=== PATIENT | female | born 1995 | race Caucasian/White ===

== ENCOUNTER 2017-12-11 14:27 | Emergency (ER) | payer BC, SELFPAY ==
[2017-12-11 14:29] VITALS: BP 149/78; PULSE 99; RESP 16; TEMP 36.4; O2SAT 96; BMI 50.7
--- NOTE | 2017-12-11 14:45 | NURSING ---
EAGLE, HEATHER, CALLED. SHE IS COMING TO SEE PATIENT
--- NOTE | 2017-12-11 15:32 | ED.DCSUM_ITS ---
- ER Visit Summary Date of Service: 12/11/17 Chief Complaint: [Depression and suicidal ideation] History of Present Illness: The patient is a 22 F [presents to the emergency department with increasing thoughts of self-harm for the last 3 weeks. Patient states that she moved back from [place] in early October and things have not been going well for her here. Patient states that while in [place] she walked in on her roommate cutting herself and she thinks that may have triggered this increased depression. Patient has thoughts of wanting to overdose or cut her wrists. She is also had thoughts of walking into traffic. Denies any homicidal thoughts. Patient denies hallucinations. She is currently not being medicated. Patient deals that she would benefit from inpatient treatment.] Physical Examination: [HEENT-PERRLA, EOMI. Cranial nerves II through XII grossly intact. TMs clear. Mucous membranes moist. No adenopathy. Cardiovascular-regular rate and rhythm without murmur or ectopy Lungs-clear to auscultation, chest wall stable without crepitus or subcu emphysema Abdomen-normoactive bowel sounds, soft, nontender, no rebound or rigidity, no peritoneal signs. Extremities-intact ?4, normal range of motion, normal pulses, atraumatic] Test Results: [CBC with differential showed a white count of 12.0, hemoglobin 15 , hematocrit 45, platelets 394. Chemistries were normal. HCG was negative. Tox screen was negative. Alcohol was negative.] Emergency Department Course and Treatment: [] Treatment Plan: [Patient will be transferred to psychiatric facility for further evaluation and treatment] Disposition: [Transfer] Impression: [Suicidal ideation Depression] This note was generated with [employer] dictation software. It may contain incorrect words, spelling, and punctuation that were not noted in review of the chart prior to signing ED Disposition - Plan for ED Patient: Chief Complaint: Suicidal Referrals: Samreen Eid DO [Primary Care Provider] -
[2017-12-11 15:33] LABS: Absolute Lymphocyte Count 3.96 X10^3/ul (0.83-4.51); Absolute Neutrophil Count 6.7 X10^3/uL (2.0-7.7); Basophil# 0.01 X10^3/uL; Basophil% 0.1 % (0-1); Eosinophil# 0.37 X10^3/uL; Eosinophils% 3.1 % (0-5); Hematocrit 45.2 % (37-47); Lymphocyte # 3.96 X10^3/ul (4.0); Mean Corp Hgb Conc 33.2 g/gl (32-36); Mean Corpuscular Hgb 28.6 pg (27.0-32.0); Mean Corpuscular Volume 86.3 fL (81-99); Mean Platelet Vol. 9.5 fl (6.2-12.0); Monocyte# 0.93 X10^3/uL; Monocyte% 7.8 % (0-10); Neutrophil # 6.69 X10^3/uL (2.7-7.7); Neutrophil % 55.7 % (47-70); Platelet Count 394 K/mm3 (150-450); RBC Distribution Width CV 12.6 % (11.6-14.6); RBC Distribution Width SD 39.7 fl (35.1-43.9); Red Blood Count 5.24 M/mm3 (4.2-5.4)
[2017-12-11 15:34] LABS: POSITIVE COUNT NO; POSITIVE DIFFERENTIAL NO; POSITIVE MORPHOLOGY NO
[2017-12-11 15:52] LABS: Anion Gap 8 (5-15); BUN 9 mg/dL (7-18); BUN/Creat Ratio 16.8 RATIO (10-20); Chloride 104 mmol/L (98-107); Creatinine, Serum 0.54 mg/dL (0.55-1.02); EST Glomerular Filtration Rate 154 mL/min (>60); Est Glom Filt Rate - Afr Amer 187 mL/min (>60); Estimated Creatinine Clearance 149.54 ml/min; Glucose 91 mg/dL (74-106); Potassium 3.9 mmol/L (3.5-5.1); Sodium Level 139 mmol/L (136-145)
[2017-12-11 15:56] LABS: Pregnancy, Serum, hCG Quali. NEGATIVE Negative (0-9 Nonpreg)
--- NOTE | 2017-12-11 16:08 | NURSING ---
1530 EAGLE, CRISIS, HERE
[2017-12-11 16:12] LABS: Amphetamine Urine VISTA NEGATIVE (<1000 ng/mL); Barbiturate Urine VISTA NEGATIVE (< 200 ng/mL); Benzodiazepine Urine VISTA NEGATIVE (< 200 ng/mL); Cocaine Urine VISTA NEGATIVE (< 300 ng/mL); Ecstacy Urine VISTA NEGATIVE (< 500 ng/mL); Methadone Urine VISTA NEGATIVE (< 300 ng/mL); PCP Urine VISTA NEGATIVE (< 25 ng/mL); THC Urine VISTA NEGATIVE (< 50 ng/mL); Vista UDS pH Range 5
[2017-12-11 17:09] VITALS: BP 129/77; PULSE 81; RESP 16; O2SAT 98
--- NOTE | 2017-12-11 17:17 | NURSING ---
WAITING TO HEAR BACK FROM [facility] ON PLACEMENT.
[2017-12-11 18:49] VITALS: PULSE 89; RESP 16; O2SAT 99
[2017-12-11 20:06] VITALS: BP 127/80; PULSE 78; RESP 16; O2SAT 99
--- NOTE | 2017-12-11 20:45 | NURSING ---
[facility] CALLED AND SAID PATIENT IS ACCEPTED JUST WAITING FOR DOCTORS ORDERS AND BED ASSIGNMENT
--- NOTE | 2017-12-11 21:16 | NURSING ---
PATIENT ACCEPTED BY DOCTOR TAMAYO AT [facility]
--- NOTE | 2017-12-11 21:22 | NURSING ---
CALLED [facility]NA[facility] DUE TO INSURANCE [employer] MORNING [facility] UNAVAILABLE
--- NOTE | 2017-12-11 21:33 | NURSING ---
SREEDHAR LOZADA SENDING [facility]
[2017-12-11 21:59] VITALS: BP 139/87; BP 146/80; PULSE 85; PULSE 87; RESP 18; TEMP 36.3; O2SAT 98; O2SAT 99
--- NOTE | 2017-12-11 22:00 | NURSING ---
gave report to [facility] the nurses name was angelia going to the [facility] unit. [facility] taking the pt. pt understands that she is being transferred and why. also called mom and let her know when she left the facility.
== END 2017-12-11 22:06 ==
PROVIDERS: Emergency Provider Emergency Medicine; Family Provider Family Medicine; PCP Family Medicine
DX: R45.851 Suicidal ideations (principal); F32.9 Major depressive disorder, single episode, unspecified; F41.9 Anxiety disorder, unspecified; Z86.59 Personal history of other mental and behavioral disorders; Z90.49 Acquired absence of other specified parts of digestive tract; F12.90 Cannabis use, unspecified, uncomplicated; Z72.0 Tobacco use
CPT/HCPCS: 36415; 80048; 80307; 80320; 84703; 85025; 99284; G0480

== ENCOUNTER → 2018-02-11 11:24 | Outpatient (CLI) | payer BC, SELFPAY ==
[2018-01-23 17:36] LABS: Chlamydia Trachomatis by PCR Negative (Negative); Neisserai gonorrhoeae by PCR Negative (Negative); Probe Check PASS; Sample Adequacy Control PASS; Specimen Processing Control PASS
[2018-01-24 02:34] LABS: Rapid Plasmin Reagin (RPR) NONREACTIVE (NONREACTIVE)
[2018-01-24 13:26] LABS: HIV - WCH Non-Reactive (Nonreactive)
[2018-02-11 11:31] LABS: Mucous, Urine 0 SEEN /hpf (<or=2+); Red Blood Cells-Urine 0 SEEN /hpf (0-5); White Blood Cells 0 SEEN /hpf (0-5)
[2018-02-11 15:33] LABS: Absolute Lymphocyte Count 3.29 X10^3/ul (0.83-4.51); Absolute Neutrophil Count 6.4 X10^3/uL (2.0-7.7); Basophil# 0.02 X10^3/uL; Basophil% 0.2 % (0-1); Eosinophil# 0.15 X10^3/uL; Eosinophils% 1.4 % (0-5); Hemoglobin 14.8 g/dl (12.0-15.0); Lymphocyte # 3.29 X10^3/ul (4.0); Lymphocyte % 30.6 % (19-41); Mean Corp Hgb Conc 32.9 g/gl (32-36); Mean Corpuscular Hgb 28.6 pg (27.0-32.0); Mean Corpuscular Volume 86.9 fL (81-99); Mean Platelet Vol. 10.5 fl (6.2-12.0); Monocyte# 0.88 X10^3/uL; Monocyte% 8.2 % (0-10); Neutrophil # 6.38 X10^3/uL (2.7-7.7); Neutrophil % 59.4 % (47-70); Platelet Count 442 K/mm3 (150-450); RBC Distribution Width CV 12.9 % (11.6-14.6); Red Blood Count 5.18 M/mm3 (4.2-5.4); White Blood Count 10.7 K/mm3 (4.4-11.0)
[2018-02-11 15:52] LABS: POSITIVE COUNT NO; POSITIVE DIFFERENTIAL NO; POSITIVE MORPHOLOGY NO; hCG Titer Quant., Serum < 1 mIU/mL (<9 non-preg)
[2018-02-11 15:58] LABS: ALB/GLOB Ratio 0.8 RATIO (0.9-2.4); AST(SGOT) 22 U/L (15-37); Alanine Aminotransfer ALT/SGPT 38 U/L (13-56); Albumin, Serum 3.5 g/dL (3.2-5.0); Alkaline Phosphatase 66 U/L (45-117); Anion Gap 9 (5-15); BUN 8 mg/dL (7-18); BUN/Creat Ratio 11.4 RATIO (10-20); Calcium,Total 8.9 mg/dL (8.5-10.1); Chloride 108 mmol/L (98-107); Cholesterol 246 mg/dL (200); EST Glomerular Filtration Rate 113 mL/min (>60); Est Glom Filt Rate - Afr Amer 136 mL/min (>60); Globulin 4.4 g/dL (2.2-4.2); Glucose 77 mg/dL (74-106); High Density Lipoprotein 39 mg/dL; Potassium 3.9 mmol/L (3.5-5.1); Protein, Total 7.9 g/dL (6.4-8.2); Sodium Level 141 mmol/L (136-145); Triglycerides 137 mg/dL; Very Low Density Lipoprotein 27 mg/dL (5-40)
[2018-02-11 16:18] LABS: Color, Urine Yellow (Yellow); Glucose, Dipstick Normal (Normal); Ketone-Dipstick Negative (Negative); Leukocyte Esterase-Dipstick Negative /ul (Negative); Nitrite-Dipstick Negative (Negative); Occult Blood-Urine Negative /ul (Negative); Protein-Dipstick Negative (Negative); Urine Bilirubin Dipstick Negative (Negative); Urine Clarity Sl. Cloudy (Clear); Urine Urobilinogen Normal (Normal)
[2018-02-11 16:23] LABS: Erythrocyte Sedimentation Rate 37 mm/hr (0-20)
[2018-02-11 16:46] LABS: Bacteria 1+ /hpf (None Seen); Squamous Epithelial Cells - UA 10-25 SEEN /hpf (5-10)
[2018-02-11 17:08] LABS: Chlamydia Trachomatis by PCR Negative (Negative); Neisserai gonorrhoeae by PCR Negative (Negative); Probe Check PASS; Sample Adequacy Control PASS; Specimen Processing Control PASS
[2018-02-12 10:27] LABS: HIV - WCH Non-Reactive (Nonreactive)
== END ==
LOC: BFHLAB 11:26
PROVIDERS: Family Medicine; Family Provider Family Medicine; PCP Family Medicine; Visit Provider Family Medicine
DX: R11.2 Nausea with vomiting, unspecified (principal); R10.9 Unspecified abdominal pain; R19.7 Diarrhea, unspecified; E28.2 Polycystic ovarian syndrome; E66.9 Obesity, unspecified; Z20.9 Contact with and (suspected) exposure to unspecified communicable disease
CPT/HCPCS: 36415; 80053; 80061; 81001; 84702; 85025; 85652; 86140; 86592; 86703; 87086; 87088; 87491; 87591

== ENCOUNTER 2018-05-10 16:26 | Emergency (ER) | payer BC, SELFPAY ==
[2018-05-10 16:26] VITALS: BP 160/117; PULSE 112; RESP 16; TEMP 36.8; O2SAT 97; BMI 52.8
--- NOTE | 2018-05-10 16:39 | ED.DCSUM_ITS ---
- ER Visit Summary Date of Service: 05/10/18 Chief Complaint: I am depressed History of Present Illness: The patient is a 22 F who states that she has been depressed since yesterday. Unclear as to why it has been worsening. She states she had bad dreams last night. She cut herself on the right distal thigh today with a razor blade. She states she has no significant history of cutting. She went [facility] in November because of her depression. No recent changes in her medications. She states she has had some passive suicidal thoughts as well Physical Examination: Vital signs reviewed. HEENT exam unremarkable. Heart is regular rate and rhythm without murmurs. Lungs are clear to auscultation. Abdomen is soft and nontender. Extremities reveal no edema. Skin exam shows superficial abrasions to the right distal thigh. Neurologic exam normal. Patient is depressed and does have some suicidal thoughts. She does have a flat affect Test Results: Screening labs negative except for leukocytosis of 14,000. Tox screen does have methamphetamines. Emergency Department Course and Treatment: She was evaluated by crisis. She already has an appointment set up next week. She will keep this appointment. I feel safe discharging her home Treatment Plan: [] Disposition: Discharge Impression: Depression This note was generated with [employer] dictation software. It may contain incorrect words, spelling, and punctuation that were not noted in review of the chart prior to signing ED Disposition - Plan for ED Patient: Chief Complaint: Depression Referrals: Samreen Eid DO [Primary Care Provider] -
[2018-05-10 17:05] LABS: Amphetamine Urine VISTA NEGATIVE (<1000 ng/mL); Barbiturate Urine VISTA NEGATIVE (< 200 ng/mL); Benzodiazepine Urine VISTA NEGATIVE (< 200 ng/mL); Cocaine Urine VISTA NEGATIVE (< 300 ng/mL); Ecstacy Urine VISTA POSITIVE (< 500 ng/mL); Methadone Urine VISTA NEGATIVE (< 300 ng/mL); PCP Urine VISTA NEGATIVE (< 25 ng/mL); THC Urine VISTA NEGATIVE (< 50 ng/mL); Vista UDS pH Range 5
[2018-05-10 17:14] LABS: Absolute Neutrophil Count 9.2 X10^3/uL (2.0-7.7); Basophil# 0.02 X10^3/uL; Basophil% 0.1 % (0-1); Eosinophil# 0.37 X10^3/uL; Eosinophils% 2.6 % (0-5); Hematocrit 44.5 % (37-47); Hemoglobin 14.9 g/dl (12.0-15.0); Lymphocyte % 23.6 % (19-41); Mean Corp Hgb Conc 33.5 g/gl (32-36); Mean Corpuscular Hgb 28.5 pg (27.0-32.0); Mean Corpuscular Volume 85.1 fL (81-99); Monocyte# 1.05 X10^3/uL; Monocyte% 7.5 % (0-10); Platelet Count 404 K/mm3 (150-450); RBC Distribution Width CV 12.8 % (11.6-14.6); RBC Distribution Width SD 39.4 fl (35.1-43.9); Red Blood Count 5.23 M/mm3 (4.2-5.4)
[2018-05-10 17:15] LABS: POSITIVE COUNT NO; POSITIVE DIFFERENTIAL NO; POSITIVE MORPHOLOGY NO
[2018-05-10 17:25] LABS: Anion Gap 9 (5-15); BUN 6 mg/dL (7-18); BUN/Creat Ratio 7.8 RATIO (10-20); Calcium,Total 8.5 mg/dL (8.5-10.1); Chloride 109 mmol/L (98-107); Creatinine, Serum 0.77 mg/dL (0.55-1.02); EST Glomerular Filtration Rate 102 mL/min (>60); Est Glom Filt Rate - Afr Amer 123 mL/min (>60); Estimated Creatinine Clearance 104.87 ml/min; Glucose 106 mg/dL (74-106); Potassium 3.5 mmol/L (3.5-5.1); Sodium Level 139 mmol/L (136-145)
[2018-05-10 17:31] LABS: Pregnancy, Serum, hCG Quali. NEGATIVE Negative (0-9 Nonpreg)
[2018-05-10 17:35] VITALS: RESP 18; O2SAT 98
--- NOTE | 2018-05-10 17:39 | ED.RN ---
per pt she lost her job saturday and it was difficulty on her body working the way she did, financial stressors acknowledged. She states she has dreams of getting raped andkilling 2 people. walks up and very anxious and depressed.
[2018-05-10 18:38] VITALS: RESP 18; O2SAT 98
[2018-05-10 19:06] VITALS: PULSE 87; RESP 16; O2SAT 97
[2018-05-10 20:38] VITALS: PULSE 82; RESP 18; O2SAT 97
--- NOTE | 2018-05-10 21:06 | ED.DEP ---
ED Disposition - Plan for ED Patient: Disposition: Home or Assisted Living Chief Complaint: Depression Instructions: ED Depression Referrals: Samreen Eid DO [Primary Care Provider] -
[2018-05-10 21:30] VITALS: BP 134/74; PULSE 87; RESP 18; O2SAT 98
--- NOTE | 2018-05-10 21:32 | NURSING ---
PT AWARE OF NEED TO FOLLOW UP WITH COUNSELOR ON SATURDAY
== END 2018-05-10 21:38 | disposition home or self-care (01) ==
PROVIDERS: Emergency Provider Emergency Medicine; Family Provider Family Medicine; PCP Family Medicine
DX: F32.9 Major depressive disorder, single episode, unspecified (principal); S70.311A Abrasion, right thigh, initial encounter; X78.8XXA Intentional self-harm by other sharp object, initial encounter; Y93.9 Activity, unspecified; Y92.9 Unspecified place or not applicable; Z79.899 Other long term (current) drug therapy; Z72.0 Tobacco use
CPT/HCPCS: 80048; 80307; 80320; 84703; 85025; 99283; A4216; G0480

== ENCOUNTER 2018-05-13 20:04 | Emergency (ER) | payer BC, SELFPAY ==
[2018-05-13 20:04] VITALS: BP 140/79; PULSE 98; RESP 14; TEMP 36.2; O2SAT 97; BMI 52.4
[2018-05-13] MEDS: LORazepam 1 MG Tablet PO (20:53)
--- NOTE | 2018-05-13 21:26 | ED.VISSUMM ---
- ER Visit Summary Date of Service: 05/13/18 Chief Complaint: Anxiety History of Present Illness: The patient is a 22 F who presents with anxiety. She became upset about 2 hours ago. She complains of shaking crying feeling short of breath and she vomited. Took her Vistaril but continued to feel severely anxious. Physical Examination: Afebrile vitals are unremarkable Patient appears very anxious tearful crying and tremulous Heart regular rate and rhythm Lungs clear Abdomen soft nontender Test Results: Not indicated Emergency Department Course and Treatment: Patient was given oral Ativan. On reevaluation she is resting comfortably with no complaints her symptoms have resolved. I do believe this is related to anxiety and a panic attack. She was advised to follow-up with her mental health care providers. Treatment Plan: [] Disposition: Discharge Impression: Panic attack This note was generated with H[employer] dictation software. It may contain incorrect words, spelling, and punctuation that were not noted in review of the chart prior to signing ED Disposition - Plan for ED Patient: Chief Complaint: Anxiety Referrals: Samreen Eid DO [Primary Care Provider] -
--- NOTE | 2018-05-13 21:27 | ED.DEP ---
ED Disposition - Plan for ED Patient: Chief Complaint: Anxiety Instructions: ED Panic Attack Referrals: Samreen Eid DO [Primary Care Provider] -
== END 2018-05-13 21:36 | disposition home or self-care (01) ==
PROVIDERS: Emergency Provider Emergency Medicine; Family Provider Family Medicine; PCP Family Medicine
DX: F41.0 Panic disorder [episodic paroxysmal anxiety] (principal); E28.2 Polycystic ovarian syndrome; F41.9 Anxiety disorder, unspecified; F31.9 Bipolar disorder, unspecified; F43.10 Post-traumatic stress disorder, unspecified; Z90.49 Acquired absence of other specified parts of digestive tract; Z79.899 Other long term (current) drug therapy; Z72.0 Tobacco use
CPT/HCPCS: 99283

== ENCOUNTER 2018-05-18 15:15 | Emergency (ER) | payer BC, SELFPAY ==
[2018-05-18 15:16] VITALS: BP 127/78; PULSE 97; RESP 18; TEMP 36.1; O2SAT 98; BMI 52.4
--- NOTE | 2018-05-18 15:36 | ED.VISSUMM ---
- ER Visit Summary Date of Service: 05/18/18 Chief Complaint: [] Situational stress anxiety History of Present Illness: The patient is a 22 F [] history of depression situational stress and anxiety, she is not suicidal or homicidal, she has a long history of exacerbation of anxiety she is on multiple medications and follow the counseling center she has an appointment to be seen there in the next day or 2. She indicates she had argued with her brother today that intensified to the point where she became very anxious to begin itching her whole body she could not control her symptoms Indicates she has been taking all of her medications does report she smokes marijuana intermittently as it helps her anxiety she last smoked Saturday denies other illicit drug use and again denies suicidal homicidal ideation or any other complaints other than itching as she assures me the symptoms she is currently having are consistent with her chronic underlying anxiety and she has had the multiple times in the past identically She indicates when she gets this bad she is treated with Ativan through the ED Physical Examination: [] Is resting comfortably bed she is itching her skin she has some small little papular lesions that she states are chronic and that she prefers to image there is no signs of petechia purpura skin breakdown otherwise she is awake and alert no psychomotor agitation or hallucinations head neck unremarkable the abdomen is soft but obese nontender the lungs are clear upper lower extremity unremarkable she is awake moving all 4 extremities she drove to the emergency department Test Results: [] Emergency Department Course and Treatment: [] Had a long conversation the patient she is scheduling her counselors in the next few days I explained we cannot continue to provide her as needed Ativan when she has these exacerbations, we will provide her 1 mg Ativan by prescription to use at bedtime and have explained further therapy for her anxiety must be obtained by her counselors and long-standing physicians and not the emergency department she agrees Treatment Plan: [] Disposition: [] Home stable Impression: [] Exacerbation of anxiety disorder This note was generated with [employer] dictation software. It may contain incorrect words, spelling, and punctuation that were not noted in review of the chart prior to signing ED Disposition - Plan for ED Patient: Chief Complaint: Anxiety Referrals: Samreen Eid DO [Primary Care Provider] -
--- NOTE | 2018-05-18 15:43 | ED.DEP ---
ED Disposition - Plan for ED Patient: Chief Complaint: Anxiety Instructions: ED Panic Attack Prescriptions: Lorazepam [Ativan] 1 mg PO QHS #1 tab Referrals: Samreen Eid DO [Primary Care Provider] -
[2018-05-18 16:18] VITALS: RESP 16
== END 2018-05-18 16:20 | disposition home or self-care (01) ==
LOC: ED 15:49
PROVIDERS: Emergency Provider Emergency Medicine; Family Provider Family Medicine; PCP Family Medicine
DX: F41.9 Anxiety disorder, unspecified (principal); R23.8 Other skin changes; F32.9 Major depressive disorder, single episode, unspecified; F12.90 Cannabis use, unspecified, uncomplicated; Z79.899 Other long term (current) drug therapy
CPT/HCPCS: 99282

== ENCOUNTER → 2018-07-01 11:45 | Outpatient (CLI) | payer BC, SELFPAY ==
[2018-07-01 13:56] LABS: Internal QC Validated? YES +Cl - CLEAR BKGD
[2018-07-01 13:59] LABS: Pregnancy, Urine Negative Negative
== END ==
LOC: MTLAB 11:47
PROVIDERS: Family Provider Family Medicine; PCP Family Medicine; Visit Provider Registered Nurse
DX: R53.83 Other fatigue (principal); Z79.899 Other long term (current) drug therapy
CPT/HCPCS: 81025

== ENCOUNTER → 2018-07-21 08:44 | Outpatient (CLI) | payer BC, SELFPAY ==
[2018-07-21 12:17] LABS: Pregnancy, Serum, hCG Quali. NEGATIVE Negative (0-9 Nonpreg)
== END ==
PROVIDERS: Visit Provider Family Medicine
DX: R11.2 Nausea with vomiting, unspecified (principal)
CPT/HCPCS: 36415; 84703

== ENCOUNTER → 2019-01-30 10:31 | Outpatient (CLI) | payer MEDICAID, SELFPAY ==
[2019-01-30 12:09] LABS: Absolute Lymphocyte Count 3.31 X10^3/ul (0.83-4.51); Basophil# 0.03 X10^3/uL; Basophil% 0.2 % (0-1); Eosinophil# 0.27 X10^3/uL; Eosinophils% 2.1 % (0-5); Hematocrit 45.5 % (37-47); Hemoglobin 15.3 g/dl (12.0-15.0); Lymphocyte # 3.31 X10^3/ul (4.0); Lymphocyte % 25.6 % (19-41); Mean Corp Hgb Conc 33.6 g/gl (32-36); Mean Corpuscular Hgb 28.7 pg (27.0-32.0); Mean Corpuscular Volume 85.4 fL (81-99); Mean Platelet Vol. 10.2 fl (6.2-12.0); Monocyte# 1.37 X10^3/uL; Monocyte% 10.6 % (0-10); Neutrophil # 7.96 X10^3/uL (2.7-7.7); Neutrophil % 61.4 % (47-70); Platelet Count 424 K/mm3 (150-450); RBC Distribution Width CV 13.2 % (11.6-14.6); RBC Distribution Width SD 41.1 fl (35.1-43.9); Red Blood Count 5.33 M/mm3 (4.2-5.4)
[2019-01-30 12:12] LABS: POSITIVE COUNT NO; POSITIVE DIFFERENTIAL NO; POSITIVE MORPHOLOGY NO
[2019-01-30 12:21] LABS: Anion Gap 6 (5-15); BUN 5 mg/dL (7-18); BUN/Creat Ratio 6.6 RATIO (10-20); Calcium,Total 9.2 mg/dL (8.5-10.1); Chloride 106 mmol/L (98-107); Creatinine, Serum 0.76 mg/dL (0.55-1.02); EST Glomerular Filtration Rate 102 mL/min (>60); Est Glom Filt Rate - Afr Amer 124 mL/min (>60); Glucose 85 mg/dL (74-106); Potassium 3.9 mmol/L (3.5-5.1); Sodium Level 137 mmol/L (136-145)
== END ==
PROVIDERS: Family Provider Family Medicine; PCP Family Medicine; Visit Provider Family Medicine
DX: R11.2 Nausea with vomiting, unspecified (principal)
CPT/HCPCS: 36415; 80048; 85025

== ENCOUNTER 2019-02-28 21:58 | Emergency (ER) | payer MEDICAID, SELFPAY ==
[2019-02-28 22:01] VITALS: BP 124/72; PULSE 97; RESP 16; TEMP 36.7; O2SAT 98; BMI 55.7
--- NOTE | 2019-02-28 22:26 | EKG12_ITS ---
Test Reason : CP Blood Pressure : / mmHG Vent. Rate : 090 BPM Atrial Rate : 090 BPM P-R Int : 164 ms QRS Dur : 074 ms QT Int : 360 ms P-R-T Axes : 024 -02 -06 degrees QTc Int : 440 ms Normal sinus rhythm Normal ECG Confirmed by ANTHONY QUACH ([id number]), deputy editor in chief PASHA PASTOR ([id number]) on 03/02/2019 1:20:13 PM Referred By: NEVAEH Confirmed By:ANTHONY QUACH
--- NOTE | 2019-02-28 22:30 | ED.RN ---
NO OLD EKGS IN MUSE
[2019-02-28 22:50] VITALS: BP 115/77; BP 123/98; BP 132/88; PULSE 80; PULSE 86; PULSE 88
--- NOTE | 2019-02-28 23:10 | RAD_ITS ---
HISTORY: Chest Pain EXAM:XR Chest 2 Views COMPARISON: None FINDINGS: Large body habitus. Shallow inspiration. Normal heart size. No vascular congestion, pleural effusion, or acute pulmonary infiltration. No pneumothorax. The bony thorax appears intact. RAD/Chest PA and Lateral IMPRESSION: Normal chest. at 0012 Reported and signed by: Man West MD Electronically Signed: Man West, at 0:10 EDT Tel , Service support ,
[2019-02-28 23:11] LABS: Absolute Lymphocyte Count 3.24 X10^3/ul (0.83-4.51); Absolute Neutrophil Count 7.5 X10^3/uL (2.0-7.7); Basophil# 0.02 X10^3/uL; Basophil% 0.2 % (0-1); Eosinophil# 0.14 X10^3/uL; Eosinophils% 1.2 % (0-5); Hematocrit 42.3 % (37-47); Hemoglobin 14.3 g/dl (12.0-15.0); Lymphocyte # 3.24 X10^3/ul (4.0); Lymphocyte % 27.3 % (19-41); Mean Corp Hgb Conc 33.8 g/gl (32-36); Mean Corpuscular Hgb 28.3 pg (27.0-32.0); Mean Corpuscular Volume 83.8 fL (81-99); Mean Platelet Vol. 9.6 fl (6.2-12.0); Monocyte% 7.6 % (0-10); Neutrophil # 7.53 X10^3/uL (2.7-7.7); Neutrophil % 63.4 % (47-70); POSITIVE COUNT NO; POSITIVE DIFFERENTIAL NO; POSITIVE MORPHOLOGY NO; Platelet Count 392 K/mm3 (150-450); RBC Distribution Width CV 12.8 % (11.6-14.6); RBC Distribution Width SD 38.4 fl (35.1-43.9); Red Blood Count 5.05 M/mm3 (4.2-5.4); White Blood Count 11.9 K/mm3 (4.4-11.0)
[2019-02-28 23:13] LABS: Anion Gap 6 (5-15); BUN 4 mg/dL (7-18); BUN/Creat Ratio 5.5 RATIO (10-20); Calcium,Total 8.8 mg/dL (8.5-10.1); Chloride 107 mmol/L (98-107); Creatinine, Serum 0.72 mg/dL (0.55-1.02); EST Glomerular Filtration Rate 108 mL/min (>60); Est Glom Filt Rate - Afr Amer 131 mL/min (>60); Estimated Creatinine Clearance 111.22 ml/min; Glucose 87 mg/dL (74-106); Potassium 3.4 mmol/L (3.5-5.1); Sodium Level 138 mmol/L (136-145)
[2019-02-28 23:38] LABS: D-Dimer Quantitative (DVT/PE) < 0.27 FEU/ug/m (0.27-0.49)
--- NOTE | 2019-03-01 00:32 | ED.DEP ---
ED Disposition - Plan for ED Patient: Instructions: ED Chest Pain NonCardiac Referrals: Samreen Eid DO [Primary Care Provider] -
[2019-03-01 01:05] VITALS: BP 122/84; PULSE 83; RESP 15; O2SAT 100
--- NOTE | 2019-03-01 01:06 | ED.RN ---
PT GIVEN WRITTEN AND VERBAL DISCHARGE INSTRUCTIONS. VERBALIZES UNDERSTANDING AND DENIES ANY FURTHER QUESTIONS. PT IV D/C AND COVERED WITH 2X2 GAUZE AND PAPER TAPE. PT DRESSES SELF AND AMBULATES OUT OF DEPT WITH FAMILY.
--- NOTE | 2019-03-01 05:22 | ED.DCSUM_ITS ---
- ER Visit Summary Date of Service: 03/01/19 Chief Complaint: Chest pain History of Present Illness: The patient is a 23 F who presents with chest pain. This initially began yesterday. Is been intermittent since that time lasting 15 seconds to 1 minute. She does not have pain currently. She also complains of intermittent lightheadedness. She denies recent travel recent surgery history of DVT or pulmonary embolism. She does complain of some associated shortness of breath and nausea. She also complains of tingling in her right hip along her lateral thigh. Physical Examination: Afebrile vitals unremarkable Moist mucous membranes Heart regular rate and rhythm Lungs clear Patient does have reproducible mid chest tenderness Abdomen soft Active full range of motion of the lower extremity's without pain sensation intact to light touch Test Results: EKG shows normal sinus rhythm rate of 90. Two-view chest x-ray is normal. Labs are unremarkable. Negative troponin. Negative d-dimer. Emergency Department Course and Treatment: Work-up as above is unremarkable. Given that she has reproducible chest pain I suspect musculoskeletal etiology. Her numbness and tingling along her right hip and thigh is likely related to a lumbar rate radiculopathy/sciatica. She was advised on supportive care and was discharged home. Treatment Plan: [] Disposition: Discharge Impression: Chest pain Sciatica This note was generated with [employer]berg dictation software. It may contain incorrect words, spelling, and punctuation that were not noted in review of the chart prior to signing ED Disposition - Plan for ED Patient: Disposition: Home or Assisted Living Instructions: ED Chest Pain NonCardiac Referrals: Samreen Eid DO [Primary Care Provider] -
== END 2019-03-01 00:45 | disposition home or self-care (01) ==
LOC: ED 22:29
PROVIDERS: Emergency Provider Emergency Medicine; Family Provider Family Medicine; PCP Family Medicine
DX: R07.9 Chest pain, unspecified (principal); M54.31 Sciatica, right side; R42 Dizziness and giddiness; R06.00 Dyspnea, unspecified; R11.0 Nausea; E28.2 Polycystic ovarian syndrome; F31.9 Bipolar disorder, unspecified; F32.9 Major depressive disorder, single episode, unspecified; F41.9 Anxiety disorder, unspecified; Z79.899 Other long term (current) drug therapy; Z72.0 Tobacco use
CPT/HCPCS: 71046; 80048; 84484; 85025; 85379; 93005; 99283; A4216

== ENCOUNTER 2019-07-19 16:34 | Emergency (ER) | payer MEDICAID, SELFPAY ==
[2019-07-19 16:35] VITALS: BP 143/106; PULSE 128; RESP 17; TEMP 36.4; O2SAT 95; BMI 52.9
--- NOTE | 2019-07-19 16:49 | ED.VISSUMM ---
- ER Visit Summary Date of Service: 07/19/19 Chief Complaint: Nausea, vomiting and diarrhea History of Present Illness: The patient is a 23 F 3 of bipolar and polycystic ovarian syndrome. Cholecystectomy. He states this morning she started with nausea, vomiting diarrhea. No fever no melena. No significant abdominal pain. Every time she tries to drink water she throws it up. Last menstrual period was within the last 2 weeks. Physical Examination: Well-appearing young female. Vital signs stable afebrile. Does not look septic or toxic. HEENT exam unremarkable. Neck nontender no lymphadenopathy. Lungs clear to auscultation bilaterally. Heart tachycardic no murmur. Rate about 110. Abdomen morbidly obese but soft no peritoneal signs. No right upper or right lower quadrant tenderness. No signs of obstruction. Extremities moves all 4. Calves no edema. Neurologically she is awake and alert with no focal motor deficits. Back nontender. Skin unremarkable. Test Results: None Emergency Department Course and Treatment: Tree and exam are consistent with a viral gastroenteritis. Patient requested IV fluids. To be given a liter. IV Zofran. Then a p.o. fluid challenge. She is doing well she will be discharged. Treatment Plan: Zofran for nausea. Fluids and rest. Return if worse or follow-up if not improving. Disposition: Discharge Impression: Acute viral gastroenteritis This note was generated with [employer] dictation software. It may contain incorrect words, spelling, and punctuation that were not noted in review of the chart prior to signing ED Disposition - Plan for ED Patient: Disposition: Home or Assisted Living Instructions: GASTROENTERITIS, Viral (8y-Adult) Prescriptions: Ondansetron [Zofran Odt] 4 mg PO Q8H PRN PRN #10 tab PRN Reason: Nausea Prescription Printed Referrals: Samreen Eid DO [Primary Care Provider] - 3-5 Days if not improving Additional Instructions: Plenty of fluids and rest. Zofran as needed for nausea. Follow-up if not improving or return if worse.
--- NOTE | 2019-07-19 16:51 | ED.DEP ---
ED Disposition - Plan for ED Patient: Disposition: Home or Assisted Living Instructions: GASTROENTERITIS, Viral (8y-Adult) Prescriptions: Ondansetron [Zofran Odt] 4 mg PO Q8H PRN PRN #10 tab PRN Reason: Nausea Prescription Printed Referrals: Samreen Eid DO [Primary Care Provider] - 3-5 Days if not improving Additional Instructions: Plenty of fluids and rest. Zofran as needed for nausea. Follow-up if not improving or return if worse.
[2019-07-19] MEDS: 0.9% Normal Saline 1,000 ML 1000 ML IV (16:58)
[2019-07-19] MEDS: Ondansetron 4 MG/2 ML Vial IV (17:04)
== END 2019-07-19 18:54 | disposition home or self-care (01) ==
LOC: ED 16:58
PROVIDERS: Emergency Provider Emergency Medicine; Family Provider Family Medicine; PCP Family Medicine
DX: A08.4 Viral intestinal infection, unspecified (principal); E28.2 Polycystic ovarian syndrome; F31.9 Bipolar disorder, unspecified; Z90.49 Acquired absence of other specified parts of digestive tract; Z79.899 Other long term (current) drug therapy; Z72.0 Tobacco use
CPT/HCPCS: 96361; 96374; 99283; J7030; A4216; J2405

== ENCOUNTER 2019-10-27 17:23 | Emergency (ER) | payer MEDICAID, SELFPAY ==
[2019-10-27 17:24] VITALS: BP 128/79; PULSE 90; RESP 18; TEMP 36.6; O2SAT 97; BMI 57.0
[2019-10-27 19:29] LABS: Absolute Lymphocyte Count 4.48 X10^3/uL (0.83-4.51); Absolute Neutrophil Count 8.3 X10^3/uL (2.0-7.7); Basophil# 0.05 X10^3/uL; Basophil% 0.4 % (0-1); Eosinophil# 0.23 X10^3/uL; Eosinophils% 1.6 % (0-5); Hematocrit 42.6 % (37-47); Lymphocyte # 4.48 X10^3/ul (4.0); Mean Corp Hgb Conc 32.9 g/dL (32-36); Mean Corpuscular Hgb 27.5 pg (27.0-32.0); Mean Corpuscular Volume 83.7 fL (81-99); Mean Platelet Vol. 10.1 fl (6.2-12.0); Monocyte# 0.93 X10^3/uL; Monocyte% 6.6 % (0-10); NRBC Flagged by Analyzer 0 % (0-5); Neutrophil # 8.27 X10^3/uL (2.7-7.7); Neutrophil % 59.1 % (47-70); POSITIVE COUNT YES; POSITIVE MORPHOLOGY YES; Platelet Count 393 K/mm3 (150-450); RBC Distribution Width CV 12.7 % (11.6-14.6); RBC Distribution Width SD 38.6 fl (35.1-43.9); Red Blood Count 5.09 M/mm3 (4.2-5.4)
[2019-10-27 19:37] LABS: Internal QC Validated? YES +Cl - CLEAR BKGD; Pregnancy, Serum, hCG Quali. NEGATIVE Negative
[2019-10-27 19:38] LABS: Differential Indicated SCAN CRITERIA MET
[2019-10-27 19:52] LABS: Anion Gap 5 (5-15); BUN 6 mg/dL (7-18); BUN/Creat Ratio 9.5 RATIO (10-20); Calcium,Total 8.9 mg/dL (8.5-10.1); Chloride 107 mmol/L (98-107); Creatinine, Serum 0.63 mg/dL (0.55-1.02); EST Glomerular Filtration Rate 125 mL/min (>60); Est Glom Filt Rate - Afr Amer 152 mL/min (>60); Estimated Creatinine Clearance 111.72 ml/min; Glucose 100 mg/dL (74-106); Potassium 4.3 mmol/L (3.5-5.1); Sodium Level 137 mmol/L (136-145)
[2019-10-27 19:57] LABS: Atypical Lymphocyte 1+ %; Platelet Estimate ADEQUATE (ADEQ)
[2019-10-27 19:58] LABS: Red Cell Morphology NORM C+C NORMAL (NORM C&C)
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
[2019-10-27 20:26] VITALS: BP 109/64; PULSE 77; RESP 16; O2SAT 98
== END 2019-10-27 20:27 | disposition home or self-care (01) ==
LOC: ED 18:26
PROVIDERS: Emergency Provider Emergency Medicine; Family Provider Family Medicine; PCP Family Medicine
DX: F07.81 Postconcussional syndrome (principal); F31.9 Bipolar disorder, unspecified; F43.10 Post-traumatic stress disorder, unspecified; E28.2 Polycystic ovarian syndrome; F41.9 Anxiety disorder, unspecified; Z79.899 Other long term (current) drug therapy; Z72.0 Tobacco use
CPT/HCPCS: 80048; 84703; 85025; 99282; J7030; A4216

== ENCOUNTER 2020-02-15 21:54 | Emergency (ER) | payer OTHER, MEDICAID, SELFPAY ==
[2020-02-15 21:54] VITALS: BP 150/94; PULSE 110; RESP 18; TEMP 36.6; O2SAT 97; BMI 55.7
--- NOTE | 2020-02-15 22:03 | EKG12_ITS ---
Test Reason : COUGH Blood Pressure : / mmHG Vent. Rate : 100 BPM Atrial Rate : 100 BPM P-R Int : 152 ms QRS Dur : 072 ms QT Int : 346 ms P-R-T Axes : 034 005 001 degrees QTc Int : 446 ms Normal sinus rhythm Normal ECG Confirmed by ANTHONY QUACH ([id number]), editorial cartoonist ALEJANDRO WHELAN ([id number]) on 02/22/2020 2:52:07 PM Referred By: AUBREY Confirmed By:ANTHONY QUACH
--- NOTE | 2020-02-15 22:04 | ED.DCSUM_ITS ---
History of Present Illness Chief Complaint: Cough Informant: Patient Onset: Yesterday Context: Gradual Onset Timing: Continuous Current Severity: Moderate Maximum Severity: Moderate Narrative: The patient is a 24-year-old female with medical history significant for polycystic ovarian disease and bipolar disorder the presents to the emergency department multiple complaints. Patient states over the past 2 days, she is had generalized fatigue, nausea, vomiting, and a scant cough. 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 She is unsure if they tested positive or just had an exposure. She states after she found this out, she was really concerned about the virus. She has not had fever. She denies chills or sweats. She denies any history of immunosuppression. She states that intermittently, she will have a heart palpitations but denies any chest pain. Prior similar symptoms: No Recent Illness/Hospitalization: No Past Medical History - Allergies and Home Meds Allergies/Adverse Reactions: Allergies No Known Allergies Allergy (Verified 02/15/20 21:56) Primary Care Physician: Samreen Eid DO [Primary Care Provider] - Prior records reviewed: Yes Past Medical History: - - PCOS, bipolar disorder Surgical History: noncontributory Smoking Status: Light Smoker (<10/day) Review of Systems General: Reports: Chills. Denies: Fever, Sweats Eyes: Denies: Visual changes - bilaterally, Diplopia ENT: Denies: Rhinorrhea, Sore throat Cardiovascular: Denies: Chest pain, Palpitations Respiratory: Reports: Cough. Denies: Dyspnea, Dyspnea on exertion Gastrointestinal: Reports: Nausea, Vomiting. Denies: Abdominal pain, Diarrhea, Melena, Hematochezia Genitourinary: Denies: Dysuria, Hematuria, Frequency Musculoskeletal: Denies: Back pain, Extremity Pain Skin: Denies: Rash, Wounds Neurological: Denies: Headache, Weakness, Numbness Physical Exam Vital Signs/Narrative: Vital Signs Temp Pulse Resp BP Pulse Ox 02/15/20 21:54 97.9 F 110 H 18 150/94 H 97 Inital Vital Signs reviewed: Yes General: Well nourished, Well developed, No Acute Distress Head: Normocephalic, Atraumatic Eyes: Perrl, EOMI ENT: Moist mucous membranes, No rhinorrhea Neck: Supple, Nontender Cardiovascular: Regular rate, Regular rhythm, No murmurs Respiratory: No distress, CTA bilaterally, Chest nontender Abdomen: Soft, Nontender, Nondistended, Normal bowel sounds Back: Nontender, Normal Inspection Extremities: Nontender, No edema Skin: Normal color, No rash Neurological: Alert, Oriented x3, Cranial nerves II-XII grossly intact, Normal Strength, Normal Sensation Psychological: Normal affect, Normal Mood Diagnostic/Tx/Re-eval - Medical Decision Making The patient is well-appearing. Based on her lack of comorbidities, no definitive exposure, and unremarkable exam I do not feel that COVID-19 testing is appropriate at this time. Patient will undergo metabolic work-up including screening labs, chest x-ray, EKG, and urinalysis. She will be treated with flu ids, antiemetics, and anti-inflammatories. Final disposition will be signed out to oncoming physician, but my suspicion is that the patient will likely be able to be safely discharged with symptomatic control. Impression 1. Nausea and vomiting ED Disposition - Plan for ED Patient: Instructions: ED Nausea Vomiting Adult Prescriptions: Ondansetron [Zofran Odt] 4 mg PO Q8H PRN PRN #10 tab PRN Reason: Nausea Prescription Printed Referrals: Samreen Eid DO [Primary Care Provider] -
[2020-02-15 22:35] VITALS: O2SAT 98
[2020-02-15 22:52] LABS: Red Blood Cells-Urine 0 SEEN /hpf (0-5)
[2020-02-15 22:55] LABS: Color, Urine Yellow (Yellow); Glucose, Dipstick Normal (Normal); Ketone-Dipstick 5 mg/dl (Negative); Leukocyte Esterase-Dipstick 25 /ul (Negative); Nitrite-Dipstick Negative (Negative); Occult Blood-Urine 25 /ul (Negative); Protein-Dipstick 30 mg/dl (Negative); Urine Bilirubin Dipstick Negative (Negative); Urine Clarity Clear (Clear); Urine Urobilinogen Normal (Normal)
[2020-02-15 22:59] LABS: Internal QC Validated? YES +Cl - CLEAR BKGD; Pregnancy, Urine Negative Negative
[2020-02-15] MEDS: Ketorolac 15 MG/ML Vial IV (23:03)
[2020-02-15] MEDS: proMETHazine 25 MG/ML Syringe 6.25 MG IV (23:03)
[2020-02-15] MEDS: 0.9% Normal Saline 1,000 ML 1000 ML IV (23:03)
[2020-02-15 23:05] LABS: Bacteria 1+ /hpf (None Seen); Mucous, Urine RARE /hpf (<or=2+); Squamous Epithelial Cells - UA 0-5 SEEN /hpf (5-10); White Blood Cells 0-5 SEEN /hpf (0-5)
[2020-02-15 23:05] LABS: Absolute Lymphocyte Count 3.56 X10^3/uL (0.83-4.51); Absolute Neutrophil Count 10.1 X10^3/uL (2.0-7.7); Basophil# 0.06 X10^3/uL; Basophil% 0.4 % (0-1); Eosinophil# 0.14 X10^3/uL; Eosinophils% 0.9 % (0-5); Hematocrit 46.5 % (37-47); Hemoglobin 15.4 g/dL (12.0-15.0); Lymphocyte # 3.56 X10^3/ul (4.0); Lymphocyte % 23.8 % (19-41); Mean Corp Hgb Conc 33.1 g/dL (32-36); Mean Corpuscular Hgb 28.8 pg (27.0-32.0); Mean Corpuscular Volume 86.9 fL (81-99); Mean Platelet Vol. 9.1 fl (6.2-12.0); Monocyte# 1.02 X10^3/uL; Monocyte% 6.8 % (0-10); NRBC Flagged by Analyzer 0 % (0-5); Neutrophil # 10.11 X10^3/uL (2.7-7.7); Neutrophil % 67.7 % (47-70); Platelet Count 455 K/mm3 (150-450); RBC Distribution Width SD 40.6 fl (35.1-43.9); Red Blood Count 5.35 M/mm3 (4.2-5.4)
--- NOTE | 2020-02-15 23:07 | RAD_ITS ---
STUDY: X-RAY CHEST REASON FOR EXAM: Female, 24 years old. Headache with cough and weakness. Coworkers have tested positive for COVID 19. TECHNIQUE: Single AP portable view of the chest. COMPARISON: February 28, 2019. FINDINGS: The lungs are clear and expanded. There is no demonstrated pleural abnormality. Normal size heart. Normal mediastinum and remberto. Normal visualized pulmonary arteries. Normal visualized aortic arch and descending thoracic aorta. Normal visualized thoracic spine. Normal visualized ribs, clavicles, and shoulders. There is no demonstrated abnormality of the visualized soft tissue structures of the upper abdomen. RAD/Chest 1 View (Portable) IMPRESSION: No acute cardiopulmonary disease or major interval change. Electronically Signed: Sean Mcdonough DO at 23:20 EDT Tel [phone], Service support ,
[2020-02-15 23:21] LABS: ALB/GLOB Ratio 0.9 RATIO (0.9-2.4); AST(SGOT) 40 U/L (15-37); Alanine Aminotransfer ALT/SGPT 65 U/L (13-56); Albumin, Serum 3.5 g/dL (3.2-5.0); Alkaline Phosphatase 74 U/L (45-117); Anion Gap 8 (5-15); BUN 4 mg/dL (7-18); BUN/Creat Ratio 6.6 RATIO (10-20); Calcium,Total 9.1 mg/dL (8.5-10.1); Chloride 107 mmol/L (98-107); Creatinine, Serum 0.61 mg/dL (0.55-1.02); EST Glomerular Filtration Rate 131 mL/min (>60); Est Glom Filt Rate - Afr Amer 158 mL/min (>60); Estimated Creatinine Clearance 130.17 ml/min; Globulin 4.1 g/dL (2.2-4.2); Glucose 87 mg/dL (74-106); Protein, Total 7.6 g/dL (6.4-8.2); Sodium Level 140 mmol/L (136-145)
[2020-02-15 23:46] VITALS: BP 127/82; PULSE 84; RESP 24; O2SAT 100
== END 2020-02-15 23:55 | disposition home or self-care (01) ==
LOC: ED 23:18
PROVIDERS: Emergency Provider Emergency Medicine; PCP Family Medicine
DX: R11.2 Nausea with vomiting, unspecified (principal); R53.83 Other fatigue; R05 Cough; E28.2 Polycystic ovarian syndrome; F31.9 Bipolar disorder, unspecified; Z79.899 Other long term (current) drug therapy; F17.200 Nicotine dependence, unspecified, uncomplicated
CPT/HCPCS: 71045; 80053; 81001; 81025; 85025; 93005; 96361; 96374; 96375; 99285; J7030; A4216

== ENCOUNTER 2020-04-07 21:10 | Emergency (ER) | payer OTHER, MEDICAID, SELFPAY ==
[2020-04-07 21:11] VITALS: BP 151/95; PULSE 99; RESP 18; TEMP 36.3; O2SAT 96; BMI 61.2
[2020-04-07 22:16] LABS: Mucous, Urine 0 SEEN /hpf (<or=2+); Red Blood Cells-Urine 0 SEEN /hpf (0-5)
[2020-04-07 22:18] LABS: Absolute Lymphocyte Count 3.47 X10^3/uL (0.83-4.51); Basophil# 0.04 X10^3/uL; Basophil% 0.4 % (0-1); Eosinophil# 0.15 X10^3/uL; Eosinophils% 1.4 % (0-5); Hematocrit 44.2 % (37-47); Hemoglobin 14.7 g/dL (12.0-15.0); Lymphocyte # 3.47 X10^3/ul (4.0); Lymphocyte % 33.1 % (19-41); Mean Corp Hgb Conc 33.3 g/dL (32-36); Mean Corpuscular Hgb 29.1 pg (27.0-32.0); Mean Corpuscular Volume 87.5 fL (81-99); Mean Platelet Vol. 10.3 fl (6.2-12.0); Monocyte# 0.78 X10^3/uL; Monocyte% 7.4 % (0-10); NRBC Flagged by Analyzer 0 % (0-5); Neutrophil % 57.3 % (47-70); POSITIVE COUNT YES; Platelet Count 331 K/mm3 (150-450); RBC Distribution Width CV 12.4 % (11.6-14.6); RBC Distribution Width SD 39.5 fl (35.1-43.9); Red Blood Count 5.05 M/mm3 (4.2-5.4); White Blood Count 10.5 K/mm3 (4.4-11.0)
[2020-04-07 22:18] LABS: Color, Urine Yellow (Yellow); Glucose, Dipstick Normal (Normal); Ketone-Dipstick Negative (Negative); Leukocyte Esterase-Dipstick 500 /ul (Negative); Nitrite-Dipstick Negative (Negative); Occult Blood-Urine Negative /ul (Negative); Protein-Dipstick 15 mg/dl (Negative); Urine Bilirubin Dipstick Negative (Negative); Urine Clarity Sl. Cloudy (Clear); Urine Urobilinogen Normal (Normal)
[2020-04-07] MEDS: 0.9% Normal Saline 1,000 ML 1000 ML IV (22:25)
[2020-04-07] MEDS: Ondansetron 4 MG/2 ML Vial IV (22:25)
[2020-04-07 22:27] LABS: Squamous Epithelial Cells - UA 0-5 SEEN /hpf (5-10); White Blood Cells 10-25 SEEN /hpf (0-5)
[2020-04-07 22:28] LABS: Amorphous Sediment 1+ PHOS; Bacteria RARE /hpf (None Seen)
[2020-04-07 22:32] LABS: ALB/GLOB Ratio 0.8 RATIO (0.9-2.4); AST(SGOT) 29 U/L (15-37); Alanine Aminotransfer ALT/SGPT 34 U/L (13-56); Albumin, Serum 3.2 g/dL (3.2-5.0); Alkaline Phosphatase 55 U/L (45-117); Anion Gap 6 (5-15); BUN 5 mg/dL (7-18); BUN/Creat Ratio 8.3 RATIO (10-20); Calcium,Total 9.1 mg/dL (8.5-10.1); Chloride 108 mmol/L (98-107); Creatinine, Serum 0.61 mg/dL (0.55-1.02); EST Glomerular Filtration Rate 131 mL/min (>60); Est Glom Filt Rate - Afr Amer 158 mL/min (>60); Estimated Creatinine Clearance 119.67 ml/min; Globulin 3.8 g/dL (2.2-4.2); Glucose 89 mg/dL (74-106); Internal QC Validated? YES +Cl - CLEAR BKGD; Potassium 3.7 mmol/L (3.5-5.1); Pregnancy, Serum, hCG Quali. NEGATIVE Negative; Sodium Level 141 mmol/L (136-145)
[2020-04-07 22:37] LABS: Differential Indicated SCAN CRITERIA MET
[2020-04-07 22:38] LABS: Platelet Estimate ADEQUATE (ADEQ); Red Cell Morphology NORM C+C NORMAL (NORM C&C)
[2020-04-08 00:46] VITALS: BP 147/80; PULSE 78; RESP 16; O2SAT 94
--- NOTE | 2020-04-08 01:02 | ED.DCSUM_ITS ---
- ER Visit Summary Date of Service: 04/08/20 Chief Complaint: Nausea and vomiting History of Present Illness: The patient is a 24 F who presents with nausea and vomiting for the past week. Patient states she has some pain in her abdomen with vomiting but denies any other abdominal pain. Patient states it is worse over the left upper quadrant. Patient denies any hematemesis or coffee-ground emesis. Patient admits to some watery diarrhea but denies any melena or hematochezia. Patient denies any dysuria or hematuria. Patient states her last menstrual period was 03/12/2020. Patient denies any abnormal vaginal bleeding or discharge. Physical Examination: Vital signs are stable. Patient is afebrile. Patient is in no acute distress. Oral mucosa is pink and moist. Neck is supple. Trachea is midline. There is no JVD. Heart was regular rate and rhythm. Lungs are clear and equal bilaterally. Abdomen is soft. Bowel sounds are normal. There is no tenderness. Extremities are intact. There is no calf tenderness or edema. Cranial nerves II through XII are intact. There are no focal motor or sensory deficits noted. Test Results: CBC and comprehensive metabolic profile were within normal limits. hCG was negative. Urinalysis shows a leukocyte esterase of 500 with 10-25 white blood cells. A urine culture was ordered. Emergency Department Course and Treatment: Patient was given IV fluids and Zof ran here. Patient was feeling better on reevaluation. Patient was given a dose of Bactrim here. Patient was given a prescription for Bactrim. Patient was instructed to follow-up with her primary care physician in 5 to 7 days. Patient understood and was agreeable with the plan. All questions were answered. Disposition: Discharge home Impression: Urinary tract infection This note was generated with [employer] dictation software. It may contain incorrect words, spelling, and punctuation that were not noted in review of the chart prior to signing ED Disposition - Plan for ED Patient: Disposition: Home or Assisted Living Diagnosis: Urinary tract infection Instructions: ED CYSTITIS Female Adult Prescriptions: Smz/Tmp Ds [Bactrim Ds] 1 tab PO BID #6 tab Prescription Printed Referrals: Samreen Eid DO [Primary Care Provider] - 5-7 Days
[2020-04-08] MEDS: Smz/Tmp Ds Tablet 1 TABLET PO (01:21)
== END 2020-04-08 01:22 | disposition home or self-care (01) ==
PROVIDERS: Emergency Provider Emergency Medicine; PCP Family Medicine
DX: N39.0 Urinary tract infection, site not specified (principal); E66.9 Obesity, unspecified; F17.210 Nicotine dependence, cigarettes, uncomplicated; F12.90 Cannabis use, unspecified, uncomplicated; F31.9 Bipolar disorder, unspecified; E28.2 Polycystic ovarian syndrome
CPT/HCPCS: 80053; 81001; 84703; 85025; 96361; 96374; 99283; J7030; A4216; J2405

== ENCOUNTER 2020-04-12 22:53 | Emergency (ER) | payer OTHER, MEDICAID, SELFPAY ==
[2020-04-12 22:55] VITALS: BP 138/81; PULSE 107; RESP 15; TEMP 36.8; O2SAT 96; BMI 61.2
--- NOTE | 2020-04-12 23:11 | CT_ITS ---
STUDY: CT ABDOMEN AND PELVIS WITHOUT CONTRAST REASON FOR EXAM: Female, 24 years old. LUQ PAIN,NAUSEA AND VOMITING X 5DAYS,PT ON BACTRIM FOR UTI,PREG TEST WAS NEG ON 04-07-20 -- PRIOR CHOLECYSTECTOMY RADIATION DOSAGE (If Supplied By Facility): CTDIvol = ( ) mGy, DLP = ( ) mGycm TECHNIQUE: Transaxial images were obtained from the dome of the diaphragm to the symphysis pubis without oral contrast, and without intravenous contrast. Sagittal and coronal images were reconstructed. There is some image degradation related to the patient''s body habitus. Individualized dose optimization techniques were used for this CT. COMPARISON: None. FINDINGS: The visualized lung bases are unremarkable. The visualized portions of the heart are within normal limits. Normal liver. There are surgical clips in the gallbladder fossa consistent with a prior cholecystectomy. There is mild splenomegaly. Normal pancreas. Normal bilateral adrenal glands. Normal right kidney. Normal left kidney. Normal visualized stomach. Normal small intestine. Normal colon. The appendix is visualized on axial images 92-96 and it appears normal.. Normal abdominal aorta. Normal inferior vena cava. Normal retroperitoneum. Grossly normal urinary bladder. Evaluation of the urinary bladder is limited by nondistention. Normal abdominal wall. Normal osseous structures. CT/Abdomen/Pelvis W IV Cont ONLY IMPRESSION: Previous cholecystectomy. Mild splenomegaly. No evidence for acute pathology. No demonstrated urinary calculi or hydronephrosis. No evidence for appendicitis or diverticulitis. No evidence for bowel obstruction or ileus. Electronically Signed: Tushar Williamson MD at 0:30 EDT , Service support ,
[2020-04-12 23:30] VITALS: PULSE 97; RESP 20; O2SAT 97
[2020-04-12] MEDS: 0.9% Normal Saline 1,000 ML 1000 ML IV (23:30)
[2020-04-12] MEDS: proMETHazine 25 MG/ML Syringe 6.25 MG IV (23:31)
[2020-04-12] MEDS: Ketorolac 30 MG/ML Syringe 15 MG IV (23:32)
[2020-04-12 23:41] LABS: Mucous, Urine 0 SEEN /hpf (<or=2+)
[2020-04-12 23:44] LABS: Color, Urine Yellow (Yellow); Glucose, Dipstick Normal (Normal); Ketone-Dipstick Negative (Negative); Leukocyte Esterase-Dipstick 25 /ul (Negative); Nitrite-Dipstick Negative (Negative); Occult Blood-Urine 150 /ul (Negative); Protein-Dipstick 15 mg/dl (Negative); Urine Bilirubin Dipstick Negative (Negative); Urine Clarity Clear (Clear); Urine Urobilinogen Normal (Normal)
[2020-04-12 23:53] LABS: Amorphous Sediment 1+; Bacteria 1+ /hpf (None Seen); Red Blood Cells-Urine 10-25 SEEN /hpf (0-5); Squamous Epithelial Cells - UA 5-10 SEEN /hpf (5-10); White Blood Cells 5-10 SEEN /hpf (0-5)
[2020-04-13 00:36] LABS: Absolute Lymphocyte Count 4.09 X10^3/uL (0.83-4.51); Absolute Neutrophil Count 9.9 X10^3/uL (2.0-7.7); Basophil# 0.04 X10^3/uL; Basophil% 0.3 % (0-1); Eosinophil# 0.16 X10^3/uL; Hematocrit 41.7 % (37-47); Hemoglobin 13.5 g/dL (12.0-15.0); Lymphocyte # 4.09 X10^3/ul (4.0); Lymphocyte % 26.3 % (19-41); Mean Corp Hgb Conc 32.4 g/dL (32-36); Mean Corpuscular Hgb 28.7 pg (27.0-32.0); Mean Corpuscular Volume 88.7 fL (81-99); Mean Platelet Vol. 9.7 fl (6.2-12.0); Monocyte# 1.24 X10^3/uL; NRBC Flagged by Analyzer 0 % (0-5); Neutrophil # 9.94 X10^3/uL (2.7-7.7); Neutrophil % 63.9 % (47-70); Platelet Count 395 K/mm3 (150-450); RBC Distribution Width CV 12.2 % (11.6-14.6); RBC Distribution Width SD 39.9 fl (35.1-43.9); White Blood Count 15.5 K/mm3 (4.4-11.0)
[2020-04-13 00:45] LABS: Internal QC Validated? YES +Cl - CLEAR BKGD; Pregnancy, Serum, hCG Quali. NEGATIVE Negative
[2020-04-13 00:52] LABS: ALB/GLOB Ratio 0.8 RATIO (0.9-2.4); AST(SGOT) 14 U/L (15-37); Alanine Aminotransfer ALT/SGPT 26 U/L (13-56); Albumin, Serum 2.9 g/dL (3.2-5.0); Alkaline Phosphatase 50 U/L (45-117); Anion Gap 6 (5-15); BUN 8 mg/dL (7-18); BUN/Creat Ratio 11.5 RATIO (10-20); Calcium,Total 8.5 mg/dL (8.5-10.1); Chloride 107 mmol/L (98-107); Creatinine, Serum 0.69 mg/dL (0.55-1.02); EST Glomerular Filtration Rate 112 mL/min (>60); Est Glom Filt Rate - Afr Amer 135 mL/min (>60); Estimated Creatinine Clearance 105.79 ml/min; Globulin 3.5 g/dL (2.2-4.2); Glucose 90 mg/dL (74-106); Lipase 87 U/L (73-393); Potassium 3.6 mmol/L (3.5-5.1); Protein, Total 6.4 g/dL (6.4-8.2); Sodium Level 141 mmol/L (136-145)
--- NOTE | 2020-04-13 01:28 | ED.VIS.GI ---
History of Present Illness Chief Complaint: Nausea/Vomiting Narrative: Patient presenting for evaluation secondary to nausea and vomiting. Patient reports that over the course of about the last week to week and a half she has been dealing with nausea vomiting and diarrhea. Patient reports that she will have between 1 and 4 episodes of nonbloody nonbilious emesis per day, and she up until the last day or so had been having around 1-3 episodes of loose watery stools. Patient denies that she had any antibiotic exposure prior to this, no travel, no admissions to the hospital or exposure to sick contacts. Patient was seen in the emergency department for this about 5 days ago and was diagnosed after work-up as having a urinary tract infection and was started on Bactrim. Patient reports that since being started on Bactrim she continued to have the nausea and vomiting went to urgent care and they told her the Bactrim occasionally can be difficult on your stomach so they switched her from that to Keflex. She is re-presenting to the emergency department tonight secondary to continued nausea and vomiting. She denies that she has significant abdominal pain but she does have diffuse mild pain. No development of fevers. Review of systems otherwise negative. Past Medical History - Allergies and Home Meds Allergies/Adverse Reactions: Allergies No Known Allergies Allergy (Verified 04/12/20 22:55) Primary Care Physician: Samreen Eid DO [Primary Care Provider] - Prior records reviewed: Yes Past Medical History: - - Bipolar Surgical History: noncontributory Smoking Status: Current every day smoker Review of Systems All systems negative except as indicated General: Denies: Chills, Fever, Sweats Eyes: Denies: Visual changes - bilaterally, Diplopia ENT: Denies: Rhinorrhea, Sore throat Cardiovascular: Denies: Chest pain, Palpitations Respiratory: Denies: Dyspnea, Cough, Dyspnea on exertion Gastrointestinal: Reports: Nausea, Vomiting, Diarrhea Genitourinary: Denies: Dysuria, Hematuria, Frequency Musculoskeletal: Denies: Back pain, Extremity Pain Skin: Denies: Rash, Wounds Neurological: Denies: Headache, Weakness, Numbness Physical Exam Vital Signs/Narrative: Vital Signs Temp Pulse Resp BP Pulse Ox 04/12/20 23:30 97 20 H 97 04/12/20 22:55 98.3 F 107 H 15 138/81 H 96 General: Well nourished, Well developed, Obese, No Acute Distress Head: Normocephalic, Atraumatic Eyes: Perrl, EOMI ENT: Moist mucous membranes, No rhinorrhea Neck: Supple, Nontender Cardiovascular: Regular rate, Regular rhythm, No murmurs Respiratory: No distress, CTA bilaterally, Chest nontender Abdomen: Soft, Nontender, Nondistended, Normal bowel sounds Back: Nontender, Normal Inspection Extremities: Nontender, No edema Skin: Normal color, No rash Neurological: Alert, Oriented x3, Cranial nerves II-XII grossly intact, Normal Strength, Normal Sensation Psychological: Normal affect, Normal Mood Diagnostic/Tx/Re-eval Clinical Impression(s) from Imaging Studies Abdomen/Pelvis CT 04/12/20 23:11 IMPRESSION: Previous cholecystectomy. Mild splenomegaly. No evidence for acute pathology. No demonstrated urinary calculi or hydronephrosis. No evidence for appendicitis or diverticulitis. No evidence for bowel obstruction or ileus. Electronically Signed: Tushar Williamson MD at 0:30 EDT , Service support , Laboratory Data 04/12/20 04/13/20 04/13/20 23:25 00:10 00:10 Schistocytes Sodium 141 Potassium 3.6 Chloride 107 Carbon Dioxide 28.0 Anion Gap 6 BUN 8 Creatinine 0.69 Estim Creat Clear Calc 105.79 Est GFR (MDRD) Af Amer 135 Est GFR (MDRD) Non-Af 112 BUN/Creatinine Ratio 11.5 Glucose 90 Calcium 8.5 Total Bilirubin 0.20 AST 14 L ALT 26 Alkaline Phosphatase 50 Total Protein 6.4 Albumin 2.9 L Globulin 3.5 Albumin/Globulin Ratio 0.8 L Lipase 87 Serum , Qual NEGATIVE Urine Color Yellow Urine Clarity Clear Urine pH 5.0 Ur Specific [place] 1.020 Urine Protein 15 H Urine Glucose (UA) Normal Urine Ketones Negative Urine Occult Blood 150 H Urine Nitrite Negative Urine Bilirubin Negative Urine Urobilinogen Normal Ur Leukocyte Esterase 25 H Urine RBC 10-25 SEEN Urine WBC 5-10 SEEN Ur Squamous Epith Cells 5-10 SEEN Amorphous Sediment 1+ Urine Bacteria 1+ Urine Mucus 0 SEEN 04/13/20 00:10 WBC 15.5 H Corrected WBC RBC 4.70 Hgb 13.5 Hct 41.7 MCV 88.7 MCH 28.7 MCHC 32.4 RDW Std Deviation 39.9 RDW Coeff of Mariel 12.2 Plt Count 395 MPV 9.7 Immature Gran % (Auto) 0.500 Neut % (Auto) 63.9 Lymph % (Auto) 26.3 Catron % (Auto) 8.0 Eos % (Auto) 1.0 Baso % (Auto) 0.3 Absolute Neuts (auto) 9.9 H Absolute Lymphs (auto) 4.09 Total Counted Neutrophils % (Manual) Band Neutrophils % Lymphocytes % (Manual) Monocytes % (Manual) Eosinophils % (Manual) Basophils % (Manual) Metamyelocytes % Myelocytes % Promyelocytes % Blast Cells % Plasma Cell % (Manual) Other Cells % Nucleated RBC % 0 Nucleated RBCs/100 WBC Differential Comment Diff Path Review Hypersegmented Neuts Atypical Lymphocytes Reactive Lymphocytes Smudge Cells Toxic Granulation Toxic Vacuolation Dohle Bodies Kim Rods Platelet Estimate Plt Morphology Comment RBC Morphology Polychromasia Hypochromasia Poikilocytosis Basophilic Stippling Anisocytosis Microcytosis Macrocytosis Spherocytes Sickle Cells Target Cells Tear Drop Cells Ovalocytes Stomatocytes Ac[place] Bodies Sammi Cells Bite Cells Crenated Cell Acanthocytes (Spur) Rouleaux Schistocytes Sodium Potassium Chloride Carbon Dioxide Anion Gap BUN Creatinine Estim Creat Clear Calc Est GFR (MDRD) Af Amer Est GFR (MDRD) Non-Af BUN/Creatinine Ratio Glucose Calcium Total Bilirubin AST ALT Alkaline Phosphatase Total Protein Albumin Globulin Albumin/Globulin Ratio Lipase Serum , Qual Urine Color Urine Clarity Urine pH Ur Specific [place] Urine Protein Urine Glucose (UA) Urine Ketones Urine Occult Blood Urine Nitrite Urine Bilirubin Urine Urobilinogen Ur Leukocyte Esterase Urine RBC Urine WBC Ur Squamous Epith Cells Amorphous Sediment Urine Bacteria Urine Mucus - Medical Decision Making Patient presented for evaluation secondary to nausea and vomiting. Patient has a benign physical exam, but as this is a repeat visit a higher index of suspicion was maintained. IV was established patient was given Toradol, fluids, and Phenergan for treatment of her symptoms. CBC demonstrated the patient to have leukocytosis of 15 which is increased from prior. Chemistry panel found to be unremarkable no significant electrolyte derangements or kidney injury. Urinalysis does continue to show some evidence of possible indeterminate infection. Due to the patient's persistent symptoms I performed a CT abdomen and pelvis with IV contrast which per radiology was negative. Repeat evaluation of the patient at 0132 shows her to have symptomatic improvement. Patient symptoms potentially are still secondary to her UTI. I recommended that she finish her course of antibiotics, I will send her home with both oral and rectal Phenergan for treatment of symptoms. She was recommended follow-up with primary care, and educated on signs and symptoms for which to return. ED Disposition - Plan for ED Patient: Disposition: Home or Assisted Living Diagnosis: Urinary tract infection, Nausea and vomiting Instructions: ED Nausea Vomiting Adult, ED CYSTITIS Female Adult Prescriptions: proMETHazine suppository [Phenergan Suppository] 25 mg RECTAL Q6H PRN PRN #6 suppos. PRN Reason: Nausea Prescription Printed proMETHazine tablet [Phenergan] 25 mg PO Q6H PRN PRN #10 tab PRN Reason: Nausea Prescription Printed Referrals: Samreen Eid DO [Primary Care Provider] - 3-5 Days
[2020-04-13 01:46] VITALS: BP 130/70; PULSE 98; RESP 16; O2SAT 98
== END 2020-04-13 01:47 | disposition home or self-care (01) ==
PROVIDERS: Emergency Provider Emergency Medicine; PCP Family Medicine
DX: N39.0 Urinary tract infection, site not specified (principal); R11.2 Nausea with vomiting, unspecified; E66.9 Obesity, unspecified; F31.9 Bipolar disorder, unspecified; Z79.899 Other long term (current) drug therapy; F17.200 Nicotine dependence, unspecified, uncomplicated
CPT/HCPCS: 74177; 80053; 81001; 83690; 84703; 85025; 96361; 96374; 96375; 99283; J7030; Q9967; A4216

== ENCOUNTER → 2020-04-18 10:46 | Outpatient (CLI) | payer OTHER, MEDICAID, SELFPAY ==
[2020-04-12 22:55] VITALS: BMI 61.2
== END ==
PROVIDERS: PCP Family Medicine; Visit Provider Family Medicine
DX: R30.0 Dysuria (principal)
CPT/HCPCS: 87086; 87088

== ENCOUNTER 2020-04-21 06:26 | Emergency (ER) | payer OTHER, MEDICAID, SELFPAY ==
[2020-04-21 06:27] VITALS: BP 154/93; PULSE 94; RESP 18; TEMP 36.7; O2SAT 93; BMI 61.5
--- NOTE | 2020-04-21 06:33 | ED.VIS.GEN ---
History of Present Illness Chief Complaint: Complaint Informant: Patient Narrative: Stated that she recently had a UTI. She was diagnosed with this and placed on antibiotic therapy. She followed up with her family doctor a couple days ago and continued to have a persistent UTI. She was changed to a new antibiotic. Of last couple days she has had vaginal itching. She is never had a yeast infection before but is unsure if she has this or an STD. She has had remote chlamydia. She denies any pain with sex. Wanted to get checked out again. Current severity is mild. Urine culture was obtained recently and is pending. Past Medical History - Allergies and Home Meds Allergies/Adverse Reactions: Allergies No Known Allergies Allergy (Verified 04/21/20 06:32) Primary Care Physician: Samreen Eid DO [Primary Care Provider] - Prior records reviewed: Yes Past Medical History: None Surgical History: noncontributory Lives: With Family Smoking Status: Current every day smoker Alcohol: None Drugs: None Review of Systems General: Denies: Chills, Fever, Sweats Eyes: Denies: Visual changes - bilaterally, Diplopia ENT: Denies: Rhinorrhea, Sore throat Cardiovascular: Denies: Chest pain, Palpitations Respiratory: Denies: Dyspnea, Cough, Dyspnea on exertion Gastrointestinal: Denies: Abdominal pain, Nausea, Vomiting, Diarrhea, Melena, Hematochezia Genitourinary: Denies: Dysuria, Hematuria, Frequency Musculoskeletal: Denies: Back pain, Extremity Pain Skin: Denies: Rash, Wounds Neurological: Denies: Headache, Weakness, Numbness Physical Exam Vital Signs/Narrative: Vital Signs Temp Pulse Resp BP Pulse Ox 04/21/20 06:27 98.1 F 94 18 154/93 H 93 General: Well nourished, Well developed, No Acute Distress Head: Normocephalic, Atraumatic Eyes: Perrl, EOMI ENT: Moist mucous membranes, No rhinorrhea Neck: Supple, Nontender Cardiovascular: Regular rate, Regular rhythm, No murmurs Respiratory: No distress, CTA bilaterally, Chest nontender Abdomen: Soft, Nontender, Nondistended, Normal bowel sounds Back: Nontender, Normal Inspection Extremities: Nontender, No edema Skin: Normal color, No rash Neurological: Alert, Oriented x3, Cranial nerves II-XII grossly intact, Normal Strength, Normal Sensation Psychological: Normal affect, Normal Mood Diagnostic/Tx/Re-eval - Medical Decision Making Gonorrhea and Chlamydia testing obtained. Pelvic exam shows mild white thick discharge. Vaginal cota appear normal. I suspect she has yeast vaginitis from her recent antibiotic. Given Diflucan. I do not feel she needs treated for gonorrhea and chlamydia as this will likely be negative. However we will run the cultures and she will receive contact if they are positive ED Disposition - Plan for ED Patient: Disposition: Home or Assisted Living Diagnosis: Yeast vaginitis Instructions: Vaginal Infection: Yeast (Candidiasis) Referrals: Samreen Eid DO [Primary Care Provider] -
[2020-04-21] MEDS: Fluconazole 100 MG Tablet 200 MG PO (07:03)
[2020-04-21 08:18] LABS: Chlamydia Trachomatis by PCR Negative (Negative); Neisserai gonorrhoeae by PCR Negative (Negative); Probe Check PASS; Sample Adequacy Control PASS; Specimen Processing Control PASS
== END 2020-04-21 07:04 | disposition home or self-care (01) ==
LOC: ED 06:55
PROVIDERS: Emergency Provider Emergency Medicine; PCP Family Medicine
DX: B37.3 Candidiasis of vulva and vagina (principal); F17.200 Nicotine dependence, unspecified, uncomplicated
CPT/HCPCS: 87491; 87591; 99283

== ENCOUNTER 2020-04-26 21:09 | Emergency (ER) | payer OTHER, MEDICAID, SELFPAY ==
[2020-04-26 21:10] VITALS: BP 152/91; PULSE 99; RESP 20; TEMP 36.6; O2SAT 95; BMI 59.5
[2020-04-26 21:20] VITALS: BP 131/83; PULSE 97; RESP 15; O2SAT 97
--- NOTE | 2020-04-26 21:24 | ED.DCSUM_ITS ---
- ER Visit Summary Date of Service: 04/26/20 Chief Complaint: Vomiting and diarrhea History of Present Illness: The patient is a 24 F presenting with vomiting and diarrhea. Patient states this started approximately 3 weeks ago. This is her fourth ED visit. She states she had one episode of vomiting today and multiple episodes of diarrhea. She denies blood in her stool. She tried to go to urgent care today and they advised her to come to the ED. She denies abdominal pain. Denies urinary complaints. She finished a course of antibiotics for UTI 1 week ago. She saw her primary care physician last Saturday. She has history of previous cholecystectomy. Denies fever. Denies other complaints. She was previously on Zofran and finished this medication. She was then given Phenergan. She states she left her Phenergan at her boyfriend's house and has no antiemetics available to her. Physical Examination: Vitals are stable. Patient is afebrile. Alert no acute distress. HEENT exam is unremarkable. Neck is supple. Lungs are clear and equal bilaterally. Heart is regular rate and rhythm. Abdomen is soft obese nontender nondistended. No guarding or rebound Extremities are unremarkable. Skin is warm and dry. Remainder of exam is unremarkable. Emergency Department Course and Treatment: Patient was given IV fluids, Zofran. CBC shows white count 12.4. Chemistries unremarkable. Urinalysis shows 0-5 white blood cells, 5-10 epithelial cells. hCG negative. Stool studies were sent. On reevaluation, patient is resting comfortably. She is given prescription for Zofran. She is advised to follow-up with her primary care ph ysician. Advised return to ED for worsening complaints. Disposition: Discharge home Impression: Vomiting and diarrhea This note was generated with [employer] dictation software. It may contain incorrect words, spelling, and punctuation that were not noted in review of the chart prior to signing ED Disposition - Plan for ED Patient: Instructions: ED Vomiting and Diarrhea Nonspecific Adult Referrals: Samreen Eid DO [Primary Care Provider] -
[2020-04-26] MEDS: 0.9% Normal Saline 1,000 ML 1000 ML IV (21:46)
[2020-04-26] MEDS: Ondansetron 4 MG/2 ML Vial IV (21:47)
[2020-04-26 21:48] LABS: Mucous, Urine 0 SEEN /hpf (<or=2+); Red Blood Cells-Urine 0 SEEN /hpf (0-5)
[2020-04-26 21:50] LABS: Absolute Lymphocyte Count 3.41 X10^3/uL (0.83-4.51); Absolute Neutrophil Count 7.8 X10^3/uL (2.0-7.7); Basophil# 0.04 X10^3/uL; Basophil% 0.3 % (0-1); Eosinophil# 0.09 X10^3/uL; Eosinophils% 0.7 % (0-5); Hemoglobin 14.2 g/dL (12.0-15.0); Lymphocyte # 3.41 X10^3/ul (4.0); Lymphocyte % 27.5 % (19-41); Mean Corpuscular Hgb 29.1 pg (27.0-32.0); Mean Corpuscular Volume 88.1 fL (81-99); Mean Platelet Vol. 9.4 fl (6.2-12.0); Monocyte# 0.98 X10^3/uL; Monocyte% 7.9 % (0-10); NRBC Flagged by Analyzer 0 % (0-5); Neutrophil # 7.84 X10^3/uL (2.7-7.7); Neutrophil % 63.4 % (47-70); Platelet Count 420 K/mm3 (150-450); RBC Distribution Width CV 12.3 % (11.6-14.6); Red Blood Count 4.88 M/mm3 (4.2-5.4); White Blood Count 12.4 K/mm3 (4.4-11.0)
[2020-04-26 22:07] LABS: Anion Gap 6 (5-15); BUN 8 mg/dL (7-18); BUN/Creat Ratio 12.3 RATIO (10-20); Calcium,Total 8.6 mg/dL (8.5-10.1); Chloride 110 mmol/L (98-107); Creatinine, Serum 0.65 mg/dL (0.55-1.02); EST Glomerular Filtration Rate 120 mL/min (>60); Est Glom Filt Rate - Afr Amer 146 mL/min (>60); Glucose 120 mg/dL (74-106); Potassium 3.8 mmol/L (3.5-5.1); Sodium Level 140 mmol/L (136-145)
[2020-04-26 22:09] LABS: Color, Urine Yellow (Yellow); Glucose, Dipstick Normal (Normal); Ketone-Dipstick 5 mg/dl (Negative); Leukocyte Esterase-Dipstick 500 /ul (Negative); Nitrite-Dipstick Negative (Negative); Occult Blood-Urine 10 /ul (Negative); Protein-Dipstick 30 mg/dl (Negative); Specific Gravity, Urine 1.025 (1.002-1.030); Urine Clarity Clear (Clear); Urine Urobilinogen 1 mg/dl (Normal)
[2020-04-26 22:12] LABS: Urine Bilirubin Dipstick 3 mg/dL (Negative)
[2020-04-26 22:13] LABS: Squamous Epithelial Cells - UA 5-10 SEEN /hpf (5-10)
[2020-04-26 22:14] LABS: Bacteria 1+ /hpf (None Seen); White Blood Cells 0-5 SEEN /hpf (0-5)
[2020-04-26 22:33] LABS: Internal QC Validated? YES +Cl - CLEAR BKGD; Pregnancy, Serum, hCG Quali. NEGATIVE Negative
--- NOTE | 2020-04-26 23:09 | ED.DEP ---
ED Disposition - Plan for ED Patient: Instructions: ED Vomiting and Diarrhea Nonspecific Adult Referrals: Samreen Eid DO [Primary Care Provider] -
--- NOTE | 2020-04-26 23:16 | ED.DEP ---
ED Disposition - Plan for ED Patient: Instructions: ED Vomiting and Diarrhea Nonspecific Adult Prescriptions: Ondansetron [Zofran Odt] 4 mg PO Q8H PRN PRN #10 tablet PRN Reason: Nausea Referrals: Samreen Eid DO [Primary Care Provider] -
[2020-04-26 23:31] VITALS: BP 134/85; PULSE 91; RESP 14; O2SAT 98
== END 2020-04-26 23:32 | disposition home or self-care (01) ==
LOC: ED 21:39
PROVIDERS: Emergency Provider Emergency Medicine; PCP Family Medicine
DX: R11.2 Nausea with vomiting, unspecified (principal); R19.7 Diarrhea, unspecified; E28.2 Polycystic ovarian syndrome; Z72.0 Tobacco use
CPT/HCPCS: 80048; 81001; 84703; 85025; 96361; 96374; 99283; J7030; A4216; J2405

== ENCOUNTER 2020-05-20 22:24 | Emergency (ER) | payer OTHER, MEDICAID, SELFPAY ==
[2020-05-20 22:25] VITALS: BP 146/89; PULSE 95; RESP 15; TEMP 36.2; O2SAT 97; BMI 61.2
--- NOTE | 2020-05-20 22:35 | ED.DCSUM_ITS ---
History of Present Illness Chief Complaint: Dental Informant: Patient Onset: Days - Was seen at urgent care and placed on amoxicillin for presumed dental infection Context: Sudden Onset Timing: Continuous Quality: Pain Location: Right lower jaw Current Severity: Mild Maximum Severity: Moderate Worsened by: Chewing Relieved by: - - Nothing Associated Symptoms: - - She has no associated symptoms Narrative: Patient is a 24-year-old woman who presents with dental pain. She states the antibiotic she was placed has not helped. She denies history medic fever, heart murmur or being on immunosuppressive meds. She denies change in voice or diff iculty swallowing. She is able to open and close her mouth completely. Prior similar symptoms: No Recent Illness/Hospitalization: Yes - Past Medical History (1) Depression with anxiety Status: Acute Past Medical History - Allergies and Home Meds Allergies/Adverse Reactions: Allergies No Known Allergies Allergy (Verified 05/20/20 22:28) Primary Care Physician: Samreen Eid DO [Primary Care Provider] - Prior records reviewed: No Surgical History: noncontributory Lives: Alone Smoking Status: Current every day smoker Alcohol: None Drugs: None Review of Systems General: Denies: Chills, Fever, Malaise Eyes: Denies: Visual changes - bilaterally, Blurred Vision - bilaterally ENT: Denies: Bilateral ear pain, Rhinorrhea, Sore throat Cardiovascular: Denies: Chest pain, Palpitations Gastrointestinal: Denies: Nausea, Vomiting Skin: Denies: Rash Neurological: Denies: Headache Physical Exam Vital Signs/Narrative: Vital Signs Temp Pulse Resp BP Pulse Ox 05/20/20 22:25 97.1 F L 95 15 146/89 H 97 General: Well nourished, Well developed, Obese Head: Normocephalic, Atraumatic ENT: Moist mucous membranes, Nasal congestion, No nasal trauma, No rhinorrhea, TM's clear. Negative for: Sinus tenderness, TM erythema left, TM erythema right Mouth/Throat: No focal abscess, Normal posterior oropharynx, No sublingual edema, Normal Stensen's duct, Focal gum swelling. Negative for: Normal inspection lips/gums - Patient has evidence of pericoronitis. There is swelling of the gum with erythema near tooth #32, Apthous ulcer, Dental trauma, Dental abscess, Dental avulsion, Dentral fracture, Filling loss, Focal dental decay, Gingivitis, Tenderness on tooth percussion, Trismus, Widespread dental decay Neck: Supple, No lymphadenopathy, Nontender, No JVD, - - He has midline. There is no inspiratory expiratory stridor. Cardiovascular: Regular rate, Regular rhythm, No murmurs, Normal S1, Normal S2 Respiratory: No distress, CTA bilaterally Skin: Normal color, No rash Neurological: Alert, Oriented x3, Cranial nerves II-XII grossly intact, Normal Strength, Normal Sensation Psychological: Normal affect Diagnostic/Tx/Re-eval - Medical Decision Making Exam is consistent with pericoronitis. There is no obvious dental cavity noted. There is no evidence to suggest an apical abscess. There is no evidence of Ludewig's angina. Plan continue taking antibiotics, irrigation of the area and pain medicine. ED Disposition - Plan for ED Patient: Disposition: Home or Assisted Living Diagnosis: Acute pericoronitis Instructions: Understanding Gingivitis Prescriptions: Naproxen [Naprosyn] 500 mg PO BID #14 tab Transmission Status: Pending to [id number] Hydrocodone Bitart/Apap 5-325 [Inola 5MG-325MG] 1 tablet PO Q6H PRN PRN 3 Days #7 tablet PRN Reason: Pain Transmission Status: Sent to [id number] Referrals: Samreen Eid DO [Primary Care Provider] - Dentist,Your [STAFF PHYSICIAN] - 5-7 Days
[2020-05-20] MEDS: HYDROcodone Bitartrate/Apap 5/325 Tablet PO (22:52)
[2020-05-20] MEDS: Naproxen 250 MG Tablet 500 MG PO (22:52)
[2020-05-20 22:53] VITALS: RESP 15
== END 2020-05-20 23:13 | disposition home or self-care (01) ==
LOC: ED 22:49
PROVIDERS: Emergency Provider Emergency Medicine; PCP Family Medicine
DX: K05.20 Aggressive periodontitis, unspecified (principal); E66.9 Obesity, unspecified; F41.8 Other specified anxiety disorders; Z79.899 Other long term (current) drug therapy; F17.200 Nicotine dependence, unspecified, uncomplicated
CPT/HCPCS: 99283

== ENCOUNTER 2020-05-30 22:37 | Emergency (ER) | payer OTHER, MEDICAID, SELFPAY ==
[2020-05-30 22:38] VITALS: BP 147/101; PULSE 92; RESP 16; TEMP 36.4; O2SAT 96; BMI 60.2
--- NOTE | 2020-05-30 23:49 | ED.DCSUM_ITS ---
History of Present Illness Chief Complaint: Nausea/Vomiting Informant: Patient - Abdominal Pain/Flank Pain Onset: Today Context: Gradual Onset Timing: Continuous Quality: Cramping Location: Epigastric Current Severity: Mild Maximum Severity: Mild Worsened by: Food Relieved by: Nothing - Has not tried any medications - Nausea/Vomiting/Emesis GI Symptom: Nausea, Vomiting Onset: Today Quality: Nonbilious. Negative for: Blood streaks, Coffee ground, Hematemesis Episodes: 3 - Diarrhea/Melena/Hematochezia GI Symptom: Negative for: Diarrhea, Melena, Hematochezia Associated Symptoms: Negative for: Dysuria, Frequency, Hematuria, Urgency Narrative: Patient having upper abdominal cramping and a couple episodes of vomiting after feeling nauseated that started earlier today. States she feels really awful. No fevers or chills, no recent cough or other respiratory symptoms. Patient presents during the national coronavirus emergency declaration/pandemic. She denies any known contact with anyone infected with COVID-19. She denies traveling out of the immediate area recently. Wants to make sure she is not . States her last normal menstrual period was 2-2 and half weeks ago, and she has been regular. She has PCOS. She has no other abdominal or medical issues, she had a prior cholecystectomy. Does not drink alcohol. The pain does not radiate into her back, chest, or elsewhere. She has no lower abdominal discomfort. - Past Medical History (1) PCOS (polycystic ovarian syndrome) Status: Chronic (2) Depression with anxiety Status: Chronic Past Medical History - Allergies and Home Meds Allergies/Adverse Reactions: Allergies No Known Allergies Allergy (Verified 05/30/20 22:40) Primary Care Physician: Samreen Eid DO [Primary Care Provider] - Surgical History: noncontributory Smoking Status: Current every day smoker Alcohol: None Review of Systems General: Reports: Malaise. Denies: Chills, Fever, Sweats Eyes: Denies: Visual changes - bilaterally, Diplopia ENT: Denies: Rhinorrhea, Sore throat Cardiovascular: Denies: Chest pain, Palpitations Respiratory: Denies: Dyspnea, Cough, Dyspnea on exertion Gastrointestinal: Reports: Abdominal pain, Nausea, Vomiting. Denies: Diarrhea, Melena, Hematochezia Genitourinary: Denies: Dysuria, Hematuria, Frequency Musculoskeletal: Denies: Back pain, Swelling, Extremity Pain Skin: Denies: Rash, Wounds Neurological: Denies: Headache, Weakness, Numbness Physical Exam Vital Signs/Narrative: Vital Signs Temp Pulse Resp BP Pulse Ox 05/30/20 22:38 97.6 F L 92 16 147/101 H 96 Inital Vital Signs reviewed: Yes General: Well nourished, Well developed, Obese, No Acute Distress Head: Normocephalic, Atraumatic Eyes: Perrl, EOMI ENT: Moist mucous membranes, No rhinorrhea Neck: Supple, Nontender Cardiovascular: Regular rate, Regular rhythm, No murmurs. Negative for: Tachycardia Respiratory: No distress, CTA bilaterally, Chest nontender Abdomen: Soft, Nondistended, Normal bowel sounds, Tender - Mild epigastric only Back: Nontender, Normal Inspection. Negative for: CVA tenderness Extremities: Nontender, No edema Skin: Normal color, No rash, No Trauma Neurological: Alert, Oriented x3, Cranial nerves II-XII grossly intact, Normal Strength, Normal Sensation, Normal Gait Psychological: Normal affect, Normal Mood Diagnostic/Tx/Re-eval Impressions Chest X-Ray 05/31/20 01:32 IMPRESSION: Normal x-ray examination of the chest. Electronically Signed: Kavon Schaeffer MD at 1:46 EDT , Service support , 05/31/20 01:32 Chest 1 View (Portable) [RAD] Stat Laboratory Results 05/31/20 05/31/20 05/31/20 00:10 00:10 00:20 WBC 17.3 H RBC 5.06 Hgb 14.4 Hct 43.2 MCV 85.4 MCH 28.5 MCHC 33.3 RDW Std Deviation 37.7 RDW Coeff of Mariel 12.2 Plt Count 484 H MPV 9.5 Immature Gran % (Auto) 0.300 Neut % (Auto) 62.5 Lymph % (Auto) 29.4 Simpson % (Auto) 7.1 Eos % (Auto) 0.5 Baso % (Auto) 0.2 Absolute Neuts (auto) 10.8 H Absolute Lymphs (auto) 5.07 H Nucleated RBC % 0 Differential Comment SCANNED Sodium Potassium Chloride Carbon Dioxide Anion Gap BUN Creatinine Estim Creat Clear Calc Est GFR (MDRD) Af Amer Est GFR (MDRD) Non-Af BUN/Creatinine Ratio Glucose Calcium Total Bilirubin AST ALT Alkaline Phosphatase Total Protein Albumin Globulin Albumin/Globulin Ratio Lipase Urine Color Yellow Urine Clarity Clear Urine pH 5.0 Ur Specific [place] 1.025 Urine Protein 30 H Urine Glucose (UA) Normal Urine Ketones 5 H Urine Occult Blood Negative Urine Nitrite Negative Urine Bilirubin Negative Urine Urobilinogen Normal Ur Leukocyte Esterase 25 H Urine RBC 0 SEEN Urine WBC 0-5 SEEN Ur Squamous Epith Cells 0-5 SEEN Urine Bacteria 1+ Urine Mucus 0 SEEN Urine Test Negative 05/31/20 00:20 WBC RBC Hgb Hct MCV MCH MCHC RDW Std Deviation RDW Coeff of Mariel Plt Count MPV Immature Gran % (Auto) Neut % (Auto) Lymph % (Auto) Simpson % (Auto) Eos % (Auto) Baso % (Auto) Absolute Neuts (auto) Absolute Lymphs (auto) Nucleated RBC % Differential Comment Sodium 139 Potassium 3.9 Chloride 108 H Carbon Dioxide 23.0 Anion Gap 8 BUN 7 Creatinine 0.66 Estim Creat Clear Calc 110.60 Est GFR (MDRD) Af Amer 144 Est GFR (MDRD) Non-Af 119 BUN/Creatinine Ratio 10.7 Glucose 94 Calcium 9.2 Total Bilirubin 0.30 AST 24 ALT 46 Alkaline Phosphatase 54 Total Protein 7.9 Albumin 3.7 Globulin 4.2 Albumin/Globulin Ratio 0.9 Lipase 62 L Urine Color Urine Clarity Urine pH Ur Specific [place] Urine Protein Urine Glucose (UA) Urine Ketones Urine Occult Blood Urine Nitrite Urine Bilirubin Urine Urobilinogen Ur Leukocyte Esterase Urine RBC Urine WBC Ur Squamous Epith Cells Urine Bacteria Urine Mucus Urine Test - Medical Decision Making Basic labs show a nonspecific leukocytosis of 17, so further exploration was taken including a chest x-ray. There is no sign of any acute infection in her urine or chest x-ray. She has epigastric discomfort only, but her liver enzymes and lipase are all within normal limits. She initially vomited after GI cocktail, even though she was pretreated with Zofran. Her nausea was better after that, but then was given Bentyl, Reglan, as well as Protonix. She feels better after this. At this time I do not think she needs a CT of the abdomen and pelvis, my suspicion is that this is intraluminal pathology, I would call at gastritis at this time and place her on a two-week course of a PPI, as well as as needed medication for nausea, and advised that she follow-up with her primary doctor, or she is welcome to return if worse. Discussed all of this at the bedside she is comfortable with that overall plan. ED Disposition - Plan for ED Patient: Disposition: Home or Assisted Living Diagnosis: Acute gastritis without bleeding Instructions: ED Gastritis, ED Diet for Vomiting or Diarrhea Adult Prescriptions: Pantoprazole Sodium [Protonix] 40 mg PO DAILY #14 tab Transmission Status: Pending to [id number] Metoclopramide [Reglan] 10 mg PO Q4H PRN #20 tab PRN Reason: Nausea Transmission Status: [id number] Referrals: Samreen Eid DO [Primary Care Provider] - 1 Week if not improving
[2020-05-31] MEDS: Ondansetron ODT 4 MG Tablet 8 MG PO (00:14)
[2020-05-31] MEDS: Mag Hydrox/Al Hydrox/Simeth 30 ML UDC PO (00:26)
[2020-05-31 00:36] LABS: Absolute Lymphocyte Count 5.07 X10^3/uL (0.83-4.51); Absolute Neutrophil Count 10.8 X10^3/uL (2.0-7.7); Basophil# 0.04 X10^3/uL; Basophil% 0.2 % (0-1); Eosinophil# 0.09 X10^3/uL; Eosinophils% 0.5 % (0-5); Hematocrit 43.2 % (37-47); Hemoglobin 14.4 g/dL (12.0-15.0); Lymphocyte # 5.07 X10^3/ul (4.0); Lymphocyte % 29.4 % (19-41); Mean Corp Hgb Conc 33.3 g/dL (32-36); Mean Corpuscular Hgb 28.5 pg (27.0-32.0); Mean Corpuscular Volume 85.4 fL (81-99); Mean Platelet Vol. 9.5 fl (6.2-12.0); Monocyte# 1.23 X10^3/uL; Monocyte% 7.1 % (0-10); NRBC Flagged by Analyzer 0 % (0-5); Neutrophil # 10.78 X10^3/uL (2.7-7.7); Neutrophil % 62.5 % (47-70); POSITIVE DIFFERENTIAL YES; Platelet Count 484 K/mm3 (150-450); RBC Distribution Width CV 12.2 % (11.6-14.6); RBC Distribution Width SD 37.7 fl (35.1-43.9); Red Blood Count 5.06 M/mm3 (4.2-5.4); White Blood Count 17.3 K/mm3 (4.4-11.0)
[2020-05-31 00:37] LABS: Mucous, Urine 0 SEEN /hpf (<or=2+); Red Blood Cells-Urine 0 SEEN /hpf (0-5)
[2020-05-31 00:38] LABS: Color, Urine Yellow (Yellow); Glucose, Dipstick Normal (Normal); Ketone-Dipstick 5 mg/dl (Negative); Leukocyte Esterase-Dipstick 25 /ul (Negative); Nitrite-Dipstick Negative (Negative); Occult Blood-Urine Negative /ul (Negative); Protein-Dipstick 30 mg/dl (Negative); Specific Gravity, Urine 1.025 (1.002-1.030); Urine Bilirubin Dipstick Negative (Negative); Urine Clarity Clear (Clear); Urine Urobilinogen Normal (Normal)
[2020-05-31 00:38] LABS: Differential Indicated SCAN CRITERIA MET
[2020-05-31 00:41] LABS: Internal QC Validated? YES +Cl - CLEAR BKGD; Pregnancy, Urine Negative Negative
[2020-05-31 00:45] LABS: Bacteria 1+ /hpf (None Seen); Squamous Epithelial Cells - UA 0-5 SEEN /hpf (5-10); White Blood Cells 0-5 SEEN /hpf (0-5)
[2020-05-31 00:53] LABS: ALB/GLOB Ratio 0.9 RATIO (0.9-2.4); AST(SGOT) 24 U/L (15-37); Alanine Aminotransfer ALT/SGPT 46 U/L (13-56); Albumin, Serum 3.7 g/dL (3.2-5.0); Alkaline Phosphatase 54 U/L (45-117); Anion Gap 8 (5-15); BUN 7 mg/dL (7-18); BUN/Creat Ratio 10.7 RATIO (10-20); Calcium,Total 9.2 mg/dL (8.5-10.1); Chloride 108 mmol/L (98-107); Creatinine, Serum 0.66 mg/dL (0.55-1.02); EST Glomerular Filtration Rate 119 mL/min (>60); Est Glom Filt Rate - Afr Amer 144 mL/min (>60); Globulin 4.2 g/dL (2.2-4.2); Glucose 94 mg/dL (74-106); Lipase 62 U/L (73-393); Potassium 3.9 mmol/L (3.5-5.1); Protein, Total 7.9 g/dL (6.4-8.2); Sodium Level 139 mmol/L (136-145)
[2020-05-31 01:01] LABS: Differential Comment SCANNED
--- NOTE | 2020-05-31 01:32 | RAD_ITS ---
STUDY: X-RAY CHEST REASON FOR EXAM: Female, 24 years old. ELEVATED WBC TECHNIQUE: Frontal view COMPARISON: 02/15/2020 FINDINGS: The lungs are clear and expanded. There is no demonstrated pleural abnormality. Normal size heart. Normal mediastinum and remberto. Normal visualized pulmonary arteries. Normal visualized aortic arch and descending thoracic aorta. Normal visualized thoracic spine. Normal visualized ribs, clavicles, and shoulders. There is no demonstrated abnormality of the visualized soft tissue structures of the upper abdomen. RAD/Chest 1 View (Portable) IMPRESSION: Normal x-ray examination of the chest. Electronically Signed: Kavon Schaeffer MD at 1:46 EDT , Service support ,
[2020-05-31] MEDS: Dicyclomine 10 MG Capsule 20 MG PO (01:53)
[2020-05-31] MEDS: Pantoprazole Sodium 40 MG Tablet PO (01:53)
[2020-05-31] MEDS: Metoclopramide 10 MG Tablet PO (01:54)
[2020-05-31 02:33] VITALS: BP 126/82; PULSE 88; RESP 16; O2SAT 100
== END 2020-05-31 02:34 | disposition home or self-care (01) ==
PROVIDERS: Emergency Provider Emergency Medicine; PCP Family Medicine
DX: K29.00 Acute gastritis without bleeding (principal); E66.9 Obesity, unspecified; E28.2 Polycystic ovarian syndrome; F41.8 Other specified anxiety disorders; Z79.899 Other long term (current) drug therapy; F17.200 Nicotine dependence, unspecified, uncomplicated
CPT/HCPCS: 36415; 71045; 80053; 81001; 81025; 83690; 85025; 99282

== ENCOUNTER 2020-06-13 23:26 | Emergency (ER) | payer OTHER, MEDICAID, SELFPAY ==
[2020-06-13 23:26] VITALS: BP 137/83; PULSE 102; RESP 18; TEMP 36.6; O2SAT 97; BMI 59.3
--- NOTE | 2020-06-13 23:41 | ED.VIS.GEN ---
History of Present Illness Chief Complaint: General Illness Detail of Chief Complaint: Bruising on abdomen Informant: Patient Onset: Weeks - 3 weeks Timing: Waxes and wanes Current Severity: Mild Maximum Severity: Moderate Narrative: Patient presents secondary to getting random bruises on her abdomen over the past 3 weeks. She states she is not typically someone who bruises easily. She was seen recently with nausea and vomiting and states that is completely resolved. She has not noted bruising elsewhere on her body. She does not have abdominal pain. She denies any known family history of bleeding disorders. - Past Medical History (1) Depression with anxiety Status: Chronic (2) PCOS (polycystic ovarian syndrome) Status: Chronic Past Medical History - Allergies and Home Meds Allergies/Adverse Reactions: Allergies No Known Allergies Allergy (Verified 06/13/20 23:29) Primary Care Physician: Samreen Eid DO [Primary Care Provider] - Prior records reviewed: Yes Surgical History: noncontributory Smoking Status: Current every day smoker Review of Systems General: Denies: Chills, Fever Eyes: Denies: Visual changes - bilaterally ENT: Denies: Bilateral ear pain Cardiovascular: Denies: Chest pain Respiratory: Denies: Dyspnea, Cough Gastrointestinal: Denies: Abdominal pain, Nausea, Vomiting, Diarrhea Genitourinary: Denies: Dysuria Musculoskeletal: Denies: Extremity Pain Skin: Reports: - - Ecchymoses Neurological: Denies: Headache Hematologic: Denies: Easy bruising, Easy bleeding Allergy: Denies: Uticaria Physical Exam Vital Signs/Narrative: Vital Signs Temp Pulse Resp BP Pulse Ox 06/13/20 23:26 97.9 F 102 H 18 137/83 H 97 Inital Vital Signs reviewed: Yes General: Well nourished, Well developed Head: Normocephalic ENT: Moist mucous membranes Neck: Supple Cardiovascular: Regular rate, Regular rhythm Respiratory: No distress, CTA bilaterally Abdomen: Soft, Nontender Skin: - - Small faint ecchymotic area to the right upper quadrant of the abdomen. Nontender. Neurological: Alert, Oriented x3 Psychological: Normal affect Diagnostic/Tx/Re-eval Laboratory Results 06/13/20 23:45 PT 13.7 INR 1.1 APTT 26.0 - Medical Decision Making Coags are unremarkable. CBC is currently pending. I spoke with the lab and the analyzer is reportedly down. They are waiting for someone to remote and to try to help fix it. At this time I will let the patient go ahead and go home. I will check a CBC when available if there are any gross abnormalities I will call her. Patient is otherwise advised to follow with her primary care physician. ED Disposition - Plan for ED Patient: Disposition: Home or Assisted Living Diagnosis: Ecchymoses, spontaneous Instructions: Contusions (Bruises) Referrals: Samreen Eid DO [Primary Care Provider] - 1-2 Weeks
[2020-06-14 00:14] LABS: International Normalized Ratio 1.1; Prothrombin Time (Protime)PT. 13.7 SECONDS (11.7-14.9)
[2020-06-14 01:20] VITALS: BP 102/59; PULSE 69; RESP 18; O2SAT 98
[2020-06-14 09:08] LABS: Absolute Lymphocyte Count 5.22 X10^3/uL (0.83-4.51); Absolute Neutrophil Count 11.4 X10^3/uL (2.0-7.7); Basophil# 0.05 X10^3/uL; Basophil% 0.3 % (0-1); Eosinophil# 0.13 X10^3/uL; Eosinophils% 0.7 % (0-5); Hematocrit 40.9 % (37-47); Hemoglobin 13.6 g/dL (12.0-15.0); Lymphocyte # 5.22 X10^3/ul (4.0); Mean Corp Hgb Conc 33.3 g/dL (32-36); Mean Corpuscular Hgb 29.7 pg (27.0-32.0); Mean Corpuscular Volume 89.3 fL (81-99); Mean Platelet Vol. 10.7 fl (6.2-12.0); Monocyte# 1.16 X10^3/uL; Monocyte% 6.4 % (0-10); NRBC Flagged by Analyzer 0 % (0-5); Neutrophil # 11.38 X10^3/uL (2.7-7.7); Neutrophil % 63.2 % (47-70); POSITIVE DIFFERENTIAL YES; Platelet Count 449 K/mm3 (150-450); RBC Distribution Width CV 12.5 % (11.6-14.6); RBC Distribution Width SD 40.3 fl (35.1-43.9); Red Blood Count 4.58 M/mm3 (4.2-5.4)
[2020-06-14 09:19] LABS: Differential Indicated SCAN CRITERIA MET
== END 2020-06-14 01:23 | disposition home or self-care (01) ==
PROVIDERS: Emergency Provider Emergency Medicine; PCP Family Medicine
DX: R23.3 Spontaneous ecchymoses (principal); F17.200 Nicotine dependence, unspecified, uncomplicated
CPT/HCPCS: 85025; 85610; 85730; 99283

== ENCOUNTER 2020-07-05 22:43 | Emergency (ER) | payer OTHER, MEDICAID, SELFPAY ==
[2020-07-05 22:43] VITALS: BP 138/80; PULSE 91; RESP 18; TEMP 36.2; O2SAT 99; BMI 59.1
--- NOTE | 2020-07-05 22:56 | ED.VIS.GEN ---
History of Present Illness Chief Complaint: Nausea/Vomiting Informant: Patient Narrative: Patient stated she is having a gastritis flareup. She stated that this morning she felt acid in her throat and had 2 episodes of emesis tonight. She left her Zofran and Prilosec at her boyfriend's house a week ago when she visited him in [place]. She has not been able to get it back. She stated this is common for her to have this happen. Current severity is mild. No fevers or chills. Normal bowel movements. She stated she feels a burning sensation in her upper abdomen consistent with previous gastritis flareups. She has had this for several years. Does not want a GI cocktail. - Past Medical History (1) Depression with anxiety Status: Chronic (2) PCOS (polycystic ovarian syndrome) Status: Chronic Past Medical History - Allergies and Home Meds Allergies/Adverse Reactions: Allergies No Known Allergies Allergy (Verified 06/13/20 23:29) Primary Care Physician: Samreen Eid DO [Primary Care Provider] - Prior records reviewed: Yes Past Medical History: - - See problem list Surgical History: cholecystectomy Lives: With Family Smoking Status: Current every day smoker Alcohol: None Drugs: None Review of Systems General: Denies: Chills, Fever, Sweats Eyes: Denies: Visual changes - bilaterally, Diplopia ENT: Denies: Rhinorrhea, Sore throat Cardiovascular: Denies: Chest pain, Palpitations Respiratory: Denies: Dyspnea, Cough, Dyspnea on exertion Gastrointestinal: Reports: Abdominal pain, Nausea, Vomiting. Denies: Diarrhea, Melena, Hematochezia Genitourinary: Denies: Dysuria, Hematuria, Frequency Musculoskeletal: Denies: Back pain, Extremity Pain Skin: Denies: Rash, Wounds Neurological: Denies: Headache, Weakness, Numbness Physical Exam Vital Signs/Narrative: Vital Signs Temp Pulse Resp BP Pulse Ox 07/05/20 22:43 97.1 F L 91 18 138/80 H 99 General: Well nourished, Well developed, No Acute Distress Head: Normocephalic, Atraumatic Eyes: Perrl, EOMI ENT: Moist mucous membranes, No rhinorrhea Neck: Supple, Nontender Cardiovascular: Regular rate, Regular rhythm, No murmurs Respiratory: No distress, CTA bilaterally, Chest nontender Abdomen: Soft, Nontender, Nondistended, Normal bowel sounds Back: Nontender, Normal Inspection Extremities: Nontender, No edema Skin: Normal color, No rash Neurological: Alert, Oriented x3, Cranial nerves II-XII grossly intact, Normal Strength, Normal Sensation Psychological: Normal affect, Normal Mood Diagnostic/Tx/Re-eval - Medical Decision Making Patient is nontoxic. I feel she is he is having flareup of gastritis as she has not been able to take her medicines. Given a dose of Pepcid and Zofran in the emergency department will be discharged with Prilosec and Zofran and follow-up as an outpatient. I do not feel she needs lab work or imaging or other treatment at this time. She will return if she worsens. ED Disposition - Plan for ED Patient: Disposition: Home or Assisted Living Diagnosis: Gastritis Instructions: ED Gastritis Prescriptions: Omeprazole [Prilosec] 20 mg PO DAILY #30 cap Transmission Status: Pending to [facility] Ondansetron [Zofran Odt] 8 mg PO Q8H PRN PRN #20 tab PRN Reason: Nausea Transmission Status: Pending to [facility] Referrals: Samreen Eid DO [Primary Care Provider] -
[2020-07-05] MEDS: Ondansetron ODT 4 MG Tablet 8 MG PO (23:06)
[2020-07-05] MEDS: Famotidine 20 MG Tablet 40 MG PO (23:06)
== END 2020-07-05 23:20 | disposition home or self-care (01) ==
LOC: ED 23:10
PROVIDERS: Emergency Provider Emergency Medicine; PCP Family Medicine
DX: K29.70 Gastritis, unspecified, without bleeding (principal); E28.2 Polycystic ovarian syndrome; F41.8 Other specified anxiety disorders; Z87.19 Personal history of other diseases of the digestive system; Z90.49 Acquired absence of other specified parts of digestive tract; Z79.899 Other long term (current) drug therapy; F17.200 Nicotine dependence, unspecified, uncomplicated
CPT/HCPCS: 99283

== ENCOUNTER 2020-07-20 22:36 | Emergency (ER) | payer OTHER, MEDICAID, SELFPAY ==
[2020-07-20 22:37] VITALS: BP 136/94; PULSE 88; RESP 16; TEMP 36.2; O2SAT 97; BMI 58.7
--- NOTE | 2020-07-20 23:02 | ED.VIS.GEN ---
History of Present Illness Chief Complaint: Suicidal Informant: Patient Narrative: Presents with suicidal ideation. She stated that she had some suicidal thoughts earlier today. She is under a lot of stress with a lot of family stress. She is trying to help her family out but financially she has not been able to work. This is been another stress for her. She has a history of bipolar and anxiety and takes medications for this. She stated that she thought about wrecking her car so that her family could catch it on her insurance policy. She did not do so. She came here instead for further evaluation. She feels very stressed at this time. Her last psychiatric admission was a couple years ago. She stated it did help her. She does have an outpatient psychiatrist and counselor but has not seen them for some time. Denies illicit drug use. She is tearful and sad. - Past Medical History (1) Depression with anxiety Status: Chronic (2) PCOS (polycystic ovarian syndrome) Status: Chronic Past Medical History - Allergies and Home Meds Allergies/Adverse Reactions: Allergies No Known Allergies Allergy (Verified 07/20/20 22:41) Primary Care Physician: Samreen Eid DO [Primary Care Provider] - Prior records reviewed: Yes Past Medical History: - - See problem list Surgical History: cholecystectomy Smoking Status: Current every day smoker Alcohol: None Drugs: None Review of Systems General: Denies: Chills, Fever, Sweats Eyes: Denies: Visual changes - bilaterally, Diplopia ENT: Denies: Rhinorrhea, Sore throat Cardiovascular: Denies: Chest pain, Palpitations Respiratory: Denies: Dyspnea, Cough, Dyspnea on exertion Gastrointestinal: Denies: Abdominal pain, Nausea, Vomiting, Diarrhea, Melena, Hematochezia Genitourinary: Denies: Dysuria, Hematuria, Frequency Musculoskeletal: Denies: Back pain, Extremity Pain Skin: Denies: Rash, Wounds Neurological: Denies: Headache, Weakness, Numbness Psych: Reports: Depression, Anxiety, Suicidal thoughts, Suicidal ideations Physical Exam Vital Signs/Narrative: Vital Signs Temp Pulse Resp BP Pulse Ox 07/20/20 22:37 97.2 F L 88 16 136/94 H 97 General: Well nourished, Well developed, No Acute Distress Head: Normocephalic, Atraumatic Eyes: Perrl, EOMI ENT: Moist mucous membranes, No rhinorrhea Neck: Supple, Nontender Cardiovascular: Regular rate, Regular rhythm, No murmurs Respiratory: No distress, CTA bilaterally, Chest nontender Abdomen: Soft, Nontender, Nondistended, Normal bowel sounds Back: Nontender, Normal Inspection Extremities: Nontender, No edema Skin: Normal color, No rash Neurological: Alert, Oriented x3, Cranial nerves II-XII grossly intact, Normal Strength, Normal Sensation Psychological: Tearful Diagnostic/Tx/Re-eval - Medical Decision Making Patient tearful and sad about her current situation. Agreed to lab work. Will have her case discussed with crisis counselor. Work shows a mild chronic leukocytosis. Mild chronic elevated platelets. Electrolytes unremarkable. Urinalysis does show 5-10 white blood cells with 1+ bacteria. Will be given Macrobid antibiotic for this. She has a mild bladder infection. Toxicology negative. Alcohol negative. This was discussed with crisis. The patient is no longer feeling sad or having any suicidal thoughts. She understands that she can follow-up at any time. She will follow-up with her counselor. She will be given antibiotics for her UTI ED Disposition - Plan for ED Patient: Disposition: Home or Assisted Living Diagnosis: Depression, Urinary tract infection Instructions: ED Depression Prescriptions: Nitrofurantoin Macrocrystals [Macrobid] 100 mg PO Q12 #10 cap Transmission Status: Pending to [facility] Referrals: Counseling,Center [GROUP OF PHYSICIANS] -
[2020-07-20 23:36] LABS: Absolute Lymphocyte Count 3.53 X10^3/uL (0.83-4.51); Absolute Neutrophil Count 7.9 X10^3/uL (2.0-7.7); Basophil# 0.02 X10^3/uL; Basophil% 0.2 % (0-1); Eosinophils% 0.8 % (0-5); Hematocrit 42.9 % (37-47); Hemoglobin 14.1 g/dL (12.0-15.0); Lymphocyte # 3.53 X10^3/ul (4.0); Lymphocyte % 28.6 % (19-41); Mean Corp Hgb Conc 32.9 g/dL (32-36); Mean Corpuscular Hgb 28.3 pg (27.0-32.0); Mean Corpuscular Volume 86.1 fL (81-99); Mean Platelet Vol. 9.5 fl (6.2-12.0); Monocyte# 0.78 X10^3/uL; Monocyte% 6.3 % (0-10); NRBC Flagged by Analyzer 0 % (0-5); Neutrophil % 63.9 % (47-70); Platelet Count 454 K/mm3 (150-450); RBC Distribution Width CV 12.4 % (11.6-14.6); RBC Distribution Width SD 38.4 fl (35.1-43.9); Red Blood Count 4.98 M/mm3 (4.2-5.4); White Blood Count 12.4 K/mm3 (4.4-11.0)
[2020-07-20 23:47] LABS: Amphetamine Urine VISTA NEGATIVE (<1000 ng/mL); Barbiturate Urine VISTA NEGATIVE (< 200 ng/mL); Benzodiazepine Urine VISTA NEGATIVE (< 200 ng/mL); Cocaine Urine VISTA NEGATIVE (< 300 ng/mL); Ecstacy Urine VISTA NEGATIVE (< 500 ng/mL); Methadone Urine VISTA NEGATIVE (< 300 ng/mL); PCP Urine VISTA NEGATIVE (< 25 ng/mL); THC Urine VISTA NEGATIVE (< 50 ng/mL); Vista UDS pH Range 6
[2020-07-20 23:52] LABS: Internal QC Validated? YES +Cl - CLEAR BKGD
[2020-07-20 23:53] LABS: Pregnancy, Serum, hCG Quali. NEGATIVE Negative
[2020-07-20 23:56] LABS: Alcohol, Blood (Medical)-Serum < 3.0 mg/dL
[2020-07-20 23:58] LABS: Anion Gap 5 (5-15); BUN 7 mg/dL (7-18); BUN/Creat Ratio 9.7 RATIO (10-20); Calcium,Total 9.2 mg/dL (8.5-10.1); Chloride 107 mmol/L (98-107); Creatinine, Serum 0.72 mg/dL (0.55-1.02); EST Glomerular Filtration Rate 106 mL/min (>60); Est Glom Filt Rate - Afr Amer 129 mL/min (>60); Estimated Creatinine Clearance 101.38 ml/min; Glucose 96 mg/dL (74-106); Potassium 3.5 mmol/L (3.5-5.1); Sodium Level 139 mmol/L (136-145)
[2020-07-21 00:17] LABS: Mucous, Urine 0 SEEN /hpf (<or=2+); Red Blood Cells-Urine 0 SEEN /hpf (0-5)
[2020-07-21 00:18] LABS: Color, Urine Yellow (Yellow); Glucose, Dipstick Normal (Normal); Ketone-Dipstick Negative (Negative); Leukocyte Esterase-Dipstick 500 /ul (Negative); Nitrite-Dipstick Negative (Negative); Occult Blood-Urine Negative /ul (Negative); Protein-Dipstick 15 mg/dl (Negative); Specific Gravity, Urine 1.015 (1.002-1.030); Urine Bilirubin Dipstick Negative (Negative); Urine Clarity Clear (Clear); Urine Urobilinogen Normal (Normal)
[2020-07-21 00:28] LABS: Bacteria 1+ /hpf (None Seen); Squamous Epithelial Cells - UA 0-5 SEEN /hpf (5-10); White Blood Cells 5-10 SEEN /hpf (0-5)
[2020-07-21 00:34] VITALS: RESP 15
[2020-07-21 01:13] VITALS: RESP 15
[2020-07-21] MEDS: Nitrofurantoin Macrocrystals 100 MG Capsule PO (01:20)
[2020-07-21 01:23] VITALS: BP 132/74; PULSE 81; RESP 16; O2SAT 95
--- NOTE | 2020-07-21 01:29 | ED.RN ---
REPORT FAXED TO CRISIS
[2020-07-21 02:08] VITALS: RESP 14
--- NOTE | 2020-07-21 02:48 | ED.RN ---
ON THE PHONE WITH [facility]IS AT THIS TIME
== END 2020-07-21 03:41 | disposition home or self-care (01) ==
PROVIDERS: Emergency Medicine; Emergency Provider Emergency Medicine; PCP Family Medicine
DX: F41.8 Other specified anxiety disorders (principal); F31.9 Bipolar disorder, unspecified; N39.0 Urinary tract infection, site not specified; Z63.8 Other specified problems related to primary support group; R45.851 Suicidal ideations; E28.2 Polycystic ovarian syndrome; Z79.899 Other long term (current) drug therapy; F17.200 Nicotine dependence, unspecified, uncomplicated
CPT/HCPCS: 36415; 80048; 80307; 80320; 81001; 84703; 85025; 99283; G0480

== ENCOUNTER 2020-07-29 00:56 | Emergency (ER) | payer OTHER, MEDICAID, SELFPAY ==
[2020-07-29 00:57] VITALS: BP 165/97; PULSE 100; RESP 18; TEMP 36.1; O2SAT 97; BMI 58.1
--- NOTE | 2020-07-29 01:03 | ED.DCSUM_ITS ---
History of Present Illness Chief Complaint: Other, Pain/Inj Informant: Patient Onset: Hours - Approximately, 1 hour prior to presentation Context: Sudden Onset Timing: Intermittent Quality: Tremor right upper extremity Location: Feeling anxious, nervous and tremor Current Severity: Mild Maximum Severity: Moderate Worsened by: Patient moving to [place] to be with boyfriend and gave work notice Relieved by: Nothing Associated Symptoms: Nausea Narrative: Patient is a 24-year-old female who presents for work because of feeling anxious, with nausea and tremor right upper extremity. She has a history of anxiety disorder. She takes Vistaril for anxiety. This occurred at work prior to presentation. She is moving to [place]. Her boyfriend lives in [place]. She informed me that she gave work HER-2 week notice. She denies problems with her family, boyfriend or coworkers. Patient is seen at the counseling center. She is scheduled for an appointment in 1 week. She states the last time she presented to the emergency department for anxiety was 1 year ago She denies fever, chills night sweats. Denies headache, ocular, visual auditory symptoms. She denies chest pain or palpitations. She denies shortness of breath. Denies perioral numbness or numbness in her extremities. Prior similar symptoms: Yes Recent Illness/Hospitalization: No - Past Medical History (1) Depression with anxiety Status: Chronic (2) PCOS (polycystic ovarian syndrome) Status: Chronic Past Medical History - Allergies and Home Meds Allergies/Adverse Reactions: Allergies No Known Allergies Allergy (Verified 07/29/20 00:59) Primary Care Physician: Samreen Eid DO [Primary Care Provider] - [facility] appointment Surgical History: cholecystectomy Lives: Alone Smoking Status: Never smoker Alcohol: None Drugs: None Review of Systems General: Denies: Chills, Fever, Malaise Eyes: Denies: Visual changes - bilaterally, Blurred Vision - bilaterally ENT: Denies: Rhinorrhea, Sore throat Cardiovascular: Denies: Chest pain, Heart racing Respiratory: Denies: Dyspnea, Cough, Dyspnea on exertion Gastrointestinal: Reports: Nausea. Denies: Abdominal pain, Vomiting, Diarrhea Musculoskeletal: Denies: Myalgias, Arthralgias, Neck pain, Back pain, Swelling, Extremity Pain Skin: Denies: Rash Neurological: Denies: Headache, Weakness, Parasthesia, Numbness Psych: Reports: Depression, Anxiety. Denies: Suicidal thoughts Hematologic: Denies: Easy bruising, Easy bleeding Physical Exam Vital Signs/Narrative: Vital Signs Temp Pulse Resp BP Pulse Ox 07/29/20 00:57 97 F L 100 18 165/97 H 97 Inital Vital Signs reviewed: Yes General: Well nourished, Well developed, Obese, No Acute Distress, - - When patient was asked why she presented here she raised her right upper extremity and had a pin rolling movement of her right hand. Head: Normocephalic, Atraumatic Eyes: Perrl, EOMI. Negative for: Pale conjunctiva, Scleral icterus Neck: Supple, Nontender Cardiovascular: Regular rate, Regular rhythm, No murmurs, Normal S1, Normal S2 Respiratory: No distress, CTA bilaterally, Chest nontender Abdomen: Soft, Nontender, Nondistended Skin: Normal color, No rash Neurological: Alert, Oriented x3, Cranial nerves II-XII grossly intact, Normal Strength, Normal Sensation, Normal Gait Psychological: - - Patient appears slightly anxious. Affect is blunted. Diagnostic/Tx/Re-eval - Medical Decision Making Patient presents with anxiety reaction. Her exam is unremarkable. Will treat with Ativan and observe. Patient was reevaluated at 0155. Patient feels markedly better. Tremors resolved. Plan is to discharge to home. ED Disposition - Plan for ED Patient: Disposition: Home or Assisted Living Diagnosis: Anxiety attack Instructions: ED Stress React Referrals: Samreen Eid DO [Primary Care Provider] - [facility] appointment
[2020-07-29] MEDS: LORazepam 0.5 MG Tablet PO (01:06)
[2020-07-29 02:04] VITALS: PULSE 81; O2SAT 100
== END 2020-07-29 02:05 | disposition home or self-care (01) ==
LOC: ED 01:16
PROVIDERS: Emergency Provider Emergency Medicine; PCP Family Medicine
DX: F41.1 Generalized anxiety disorder (principal); F41.8 Other specified anxiety disorders; E28.2 Polycystic ovarian syndrome; E66.9 Obesity, unspecified; Z79.899 Other long term (current) drug therapy
CPT/HCPCS: 99283

== ENCOUNTER 2020-08-04 23:00 | Emergency (ER) | payer OTHER, MEDICAID, SELFPAY ==
[2020-08-04 23:01] VITALS: BP 135/69; PULSE 84; RESP 17; TEMP 36.2; O2SAT 97; BMI 59.0
[2020-08-05 00:02] VITALS: BP 135/69; PULSE 84; RESP 17; TEMP 36.2; O2SAT 97
--- NOTE | 2020-08-05 00:39 | ED.VIS.URI ---
History of Present Illness Chief Complaint: Cold Sx Informant: Patient Onset: Days - 4 Context: Gradual Onset Timing: Continuous Quality: congested Location: nose Current Severity: Moderate Maximum Severity: Severe Worsened by: - - in mornings Relieved by: - - hasn't taken medications Associated Symptoms: Nasal Congestion, Sinus Pressure, Myalgias, Nonproductive cough. Negative for: Headache, Nausea, Vomiting, Diarrhea, Shortness of Breath, Chest Pain, Hemoptysis, Productive Cough Narrative: No fevers chills. Some sinus congestion, no purulent discharge. Mild sore throat that started later. Having myalgias. No loss of taste or smell. Patient presents during the national coronavirus emergency declaration/pandemic. She denies any known contact with anyone infected with COVID-19. She denies traveling out of the immediate area recently. - Past Medical History (1) Bipolar disorder Status: Chronic (2) Depression with anxiety Status: Chronic (3) PCOS (polycystic ovarian syndrome) Status: Chronic Past Medical History - Allergies and Home Meds Allergies/Adverse Reactions: Allergies No Known Allergies Allergy (Verified 08/04/20 23:02) Primary Care Physician: Samreen Eid DO [Primary Care Provider] - Surgical History: cholecystectomy Smoking Status: Never smoker Review of Systems General: Reports: Malaise. Denies: Chills, Fever, Sweats Eyes: Denies: Visual changes - bilaterally, Diplopia ENT: Reports: Bilateral ear pain, Rhinorrhea, Sore throat Cardiovascular: Denies: Chest pain, Palpitations Respiratory: Reports: Cough. Denies: Dyspnea, Sputum, Dyspnea on exertion Gastrointestinal: Denies: Abdominal pain, Nausea, Vomiting, Diarrhea, Melena, Hematochezia Genitourinary: Denies: Dysuria, Hematuria, Frequency Musculoskeletal: Reports: Myalgias. Denies: Neck pain, Back pain, Extremity Pain Skin: Denies: Rash, Wounds Neurological: Denies: Headache, Weakness, Numbness Physical Exam Vital Signs/Narrative: Vital Signs Temp Pulse Resp BP Pulse Ox 08/05/20 00:02 97.1 F L 84 17 135/69 H 97 08/04/20 23:01 97.1 F L 84 17 135/69 H 97 Inital Vital Signs reviewed: Yes General: Well nourished, Well developed, Obese, - - Well-appearing, NAD Head: Normocephalic, Atraumatic. Negative for: Sinus Tenderness Eyes: Perrl, EOMI Ears: Normal external canal, TM's clear Nose: Normal Inspection, No Rhinorrhea. Negative for: Congestion, Purulent Drainage Mouth/Throat: Normal Inspection, No Posterior Erythema, Airway Patent Neck: Supple, Nontender, No Lymphadenopathy, No Meningismus. Negative for: Anterior Lymphadenopathy, Posterior Lymphadenopathy Cardiovascular: Regular rate, Regular rhythm, No murmurs Respiratory: No distress, CTA bilaterally, Chest nontender Abdomen: Soft, Nontender, Nondistended, Normal bowel sounds Back: Nontender, Normal Inspection. Negative for: CVA tenderness Extremities: Nontender, No edema Skin: Normal color, No rash, No Trauma Neurological: Alert, Oriented x3, Cranial nerves II-XII grossly intact, Normal Strength, Normal Sensation, Normal Gait Psychological: Normal affect, Normal Mood Diagnostic/Tx/Re-eval - Medical Decision Making Reassured she likely has a viral syndrome however she presents during the coronavirus pandemic. I think it is reasonable that she is swab for that so we will do it as an outpatient/send out. She has not been tested at all before nor had coronavirus that she knows of. I think it is less likely that she has it, I am okay with her going back to work but she must wear a mask at all times, she states currently she is not required to. I will send her with a note that says you must. ED Disposition - Plan for ED Patient: Disposition: Home or Assisted Living Diagnosis: Viral upper respiratory tract infection Instructions: ED URI Viral Referrals: Samreen Eid DO [Primary Care Provider] - 1-2 Weeks (If not improving) Additional Instructions: See attached quarantine instructions on quarantining yourself unless you are at work, at which you must wear a mask at all times, and to look up your own test results with the patient portal. Use [id number] cold and flu medications as needed for your congestion and cold symptoms. Return to the ER for any trouble breathing unless it is just due to nasal congestion.
[2020-08-05 01:03] VITALS: BP 133/70; PULSE 75; RESP 16; O2SAT 97
== END 2020-08-05 01:14 | disposition home or self-care (01) ==
LOC: ED 08-05 00:46
PROVIDERS: Emergency Provider Emergency Medicine; PCP Family Medicine
DX: J06.9 Acute upper respiratory infection, unspecified (principal); E66.9 Obesity, unspecified; E28.2 Polycystic ovarian syndrome; F31.9 Bipolar disorder, unspecified; F41.8 Other specified anxiety disorders; Z79.899 Other long term (current) drug therapy
CPT/HCPCS: 87635; 99283; U0003

== ENCOUNTER → 2020-11-10 16:04 | Outpatient (CLI) | payer MEDICAID, SELFPAY ==
[2020-11-10 17:29] LABS: Absolute Lymphocyte Count 4.15 X10^3/uL (0.83-4.51); Absolute Neutrophil Count 8.2 X10^3/uL (2.0-7.7); Basophil# 0.02 X10^3/uL; Basophil% 0.2 % (0-1); Eosinophil# 0.07 X10^3/uL; Eosinophils% 0.5 % (0-5); Hemoglobin 13.7 g/dL (12.0-15.0); Lymphocyte # 4.15 X10^3/ul (4.0); Lymphocyte % 31.2 % (19-41); Mean Corp Hgb Conc 31.9 g/dL (32-36); Mean Corpuscular Hgb 27.1 pg (27.0-32.0); Mean Platelet Vol. 9.5 fl (6.2-12.0); NRBC Flagged by Analyzer 0 % (0-5); Neutrophil % 61.7 % (47-70); Platelet Count 464 K/mm3 (150-450); RBC Distribution Width CV 12.6 % (11.6-14.6); RBC Distribution Width SD 38.8 fl (35.1-43.9); Red Blood Count 5.06 M/mm3 (4.2-5.4); White Blood Count 13.3 K/mm3 (4.4-11.0)
[2020-11-10 17:56] LABS: Hemoglobin A1c 5.6 % (3.8-5.6)
[2020-11-10 18:22] LABS: ALB/GLOB Ratio 0.8 RATIO (0.9-2.4); AST(SGOT) 13 U/L (15-37); Alanine Aminotransfer ALT/SGPT 21 U/L (13-56); Albumin, Serum 3.4 g/dL (3.2-5.0); Alkaline Phosphatase 72 U/L (45-117); Anion Gap 7 (5-15); BUN 6 mg/dL (7-18); BUN/Creat Ratio 8.8 RATIO (10-20); Calcium,Total 8.8 mg/dL (8.5-10.1); Chloride 107 mmol/L (98-107); Creatinine, Serum 0.68 mg/dL (0.55-1.02); EST Glomerular Filtration Rate 114 mL/min (>60); Est Glom Filt Rate - Afr Amer 138 mL/min (>60); Free T3 3.1 pg/mL (2.18-3.98); Globulin 4.3 g/dL (2.2-4.2); Glucose 81 mg/dL (74-106); Potassium 3.3 mmol/L (3.5-5.1); Protein, Total 7.7 g/dL (6.4-8.2); Sodium Level 139 mmol/L (136-145); T4 Free Direct 1.07 ng/dL (0.76-1.46); Thyroid Stim Hormone (TSH) 2.03 uIU/mL (0.358-3.74)
== END ==
PROVIDERS: PCP Family Medicine; Visit Provider Family Medicine
DX: E28.2 Polycystic ovarian syndrome (principal); E11.9 Type 2 diabetes mellitus without complications; R53.83 Other fatigue; Z51.81 Encounter for therapeutic drug level monitoring
CPT/HCPCS: 36415; 80053; 83036; 84439; 84443; 84481; 85025

== ENCOUNTER 2020-11-12 23:29 | Emergency (ER) | payer MEDICAID, SELFPAY ==
[2020-11-12 23:30] VITALS: BP 146/81; PULSE 92; RESP 16; TEMP 36.9; O2SAT 97; BMI 60.1
--- NOTE | 2020-11-12 23:43 | ED.VIS.GEN ---
History of Present Illness Chief Complaint: Suicidal Informant: Patient Narrative: Patient stated she has had suicidal thoughts for several weeks now. Last week she actually thought about driving off the road to end her life. Yesterday she was driving also and thought about driving into traffic. She did not do so. She has been stressed and her depression is gone worse. She does take medications for this. No hospitalizations in the last 3 years for psychiatric related suicidal thoughts. She does occasionally smoke marijuana stated has not done this for last 4 weeks. No other illicit drug use. Does not drink alcohol. [facility] asked her to come in for further evaluation. Patient is tearful. - Past Medical History (1) Bipolar disorder Status: Chronic (2) Depression with anxiety Status: Chronic (3) PCOS (polycystic ovarian syndrome) Status: Chronic Past Medical History - Allergies and Home Meds Allergies/Adverse Reactions: Allergies No Known Allergies Allergy (Verified 11/12/20 23:30) Primary Care Physician: Samreen Eid DO [Primary Care Provider] - Prior records reviewed: Yes Past Medical History: - - See problem list Surgical History: cholecystectomy Smoking Status: Current every day smoker Alcohol: None Drugs: Marijuana Review of Systems General: Denies: Chills, Fever, Sweats Eyes: Denies: Visual changes - bilaterally, Diplopia ENT: Denies: Rhinorrhea, Sore throat Cardiovascular: Denies: Chest pain, Palpitations Respiratory: Denies: Dyspnea, Cough, Dyspnea on exertion Gastrointestinal: Denies: Abdominal pain, Nausea, Vomiting, Diarrhea, Melena, Hematochezia Genitourinary: Denies: Dysuria, Hematuria, Frequency Musculoskeletal: Denies: Back pain, Extremity Pain Skin: Denies: Rash, Wounds Neurological: Denies: Headache, Weakness, Numbness Psych: Reports: Depression, Suicidal thoughts, Suicidal ideations Physical Exam Vital Signs/Narrative: Vital Signs Temp Pulse Resp BP Pulse Ox 11/12/20 23:30 98.5 F 92 16 146/81 H 97 General: Well nourished, Well developed, No Acute Distress Head: Normocephalic, Atraumatic Eyes: Perrl, EOMI ENT: Moist mucous membranes, No rhinorrhea Neck: Supple, Nontender Cardiovascular: Regular rate, Regular rhythm, No murmurs Respiratory: No distress, CTA bilaterally, Chest nontender Abdomen: Soft, Nontender, Nondistended, Normal bowel sounds Back: Nontender, Normal Inspection Extremities: Nontender, No edema Skin: Normal color, No rash Neurological: Alert, Oriented x3, Cranial nerves II-XII grossly intact, Normal Strength, Normal Sensation Psychological: Depressed, Tearful. Negative for: Normal affect, Normal Mood Diagnostic/Tx/Re-eval - Medical Decision Making Patient tearful in the department. Medical clearance will be undertaken with lab work and the patient case will be discussed with crisis. Lab work shows a leukocytosis but the patient does have a chronic leukocytosis. Alcohol and tox negative. The patient does have 5-10 white blood cells with epithelial contamination but 3+ bacteria in her urine. Due to the white blood cell count elevation in her reflex bacteria we will treat her with Macrobid for UTI. Will be given a prescription for this. Will be admitted. ED Disposition - Plan for ED Patient: Disposition: Psychiatric Hospital or Unit Diagnosis: Suicidal ideation, Urinary tract infection Prescriptions: Nitrofurantoin Macrocrystals [Macrobid] 100 mg PO Q12 #10 cap Prescription Printed
[2020-11-13] VITALS (7 sets, daily range): BP systolic 156; BP diastolic 83; PULSE 96–98; RESP 15–16; TEMP 36.5; O2SAT 97
[2020-11-13 00:09] LABS: Absolute Lymphocyte Count 5.71 X10^3/uL (0.83-4.51); Absolute Neutrophil Count 9.8 X10^3/uL (2.0-7.7); Basophil# 0.05 X10^3/uL; Basophil% 0.3 % (0-1); Eosinophil# 0.09 X10^3/uL; Eosinophils% 0.5 % (0-5); Hematocrit 41.3 % (37-47); Hemoglobin 13.6 g/dL (12.0-15.0); Lymphocyte # 5.71 X10^3/ul (4.0); Lymphocyte % 33.9 % (19-41); Mean Corp Hgb Conc 32.9 g/dL (32-36); Mean Corpuscular Hgb 27.8 pg (27.0-32.0); Mean Corpuscular Volume 84.5 fL (81-99); Mean Platelet Vol. 9.2 fl (6.2-12.0); Monocyte# 1.14 X10^3/uL; Monocyte% 6.8 % (0-10); NRBC Flagged by Analyzer 0 % (0-5); Neutrophil % 58.1 % (47-70); POSITIVE DIFFERENTIAL YES; Platelet Count 473 K/mm3 (150-450); RBC Distribution Width CV 12.5 % (11.6-14.6); RBC Distribution Width SD 37.9 fl (35.1-43.9); Red Blood Count 4.89 M/mm3 (4.2-5.4); White Blood Count 16.9 K/mm3 (4.4-11.0)
[2020-11-13 00:10] LABS: Differential Indicated SCAN CRITERIA MET
[2020-11-13 00:24] LABS: Amphetamine Urine VISTA NEGATIVE (<1000 ng/mL); Barbiturate Urine VISTA NEGATIVE (< 200 ng/mL); Benzodiazepine Urine VISTA NEGATIVE (< 200 ng/mL); Cocaine Urine VISTA NEGATIVE (< 300 ng/mL); Ecstacy Urine VISTA NEGATIVE (< 500 ng/mL); Methadone Urine VISTA NEGATIVE (< 300 ng/mL); PCP Urine VISTA NEGATIVE (< 25 ng/mL); THC Urine VISTA NEGATIVE (< 50 ng/mL); Vista UDS pH Range 5
[2020-11-13 00:25] LABS: Internal QC Validated? YES +Cl - CLEAR BKGD; Pregnancy, Serum, hCG Quali. NEGATIVE Negative
[2020-11-13 00:26] LABS: Alcohol, Blood (Medical)-Serum < 3.0 mg/dL
[2020-11-13 00:27] LABS: Anion Gap 8 (5-15); BUN 9 mg/dL (7-18); BUN/Creat Ratio 15.2 RATIO (10-20); Calcium,Total 8.9 mg/dL (8.5-10.1); Chloride 109 mmol/L (98-107); Creatinine, Serum 0.59 mg/dL (0.55-1.02); EST Glomerular Filtration Rate 134 mL/min (>60); Est Glom Filt Rate - Afr Amer 162 mL/min (>60); Estimated Creatinine Clearance 122.67 ml/min; Glucose 98 mg/dL (74-106); Potassium 3.6 mmol/L (3.5-5.1); Sodium Level 139 mmol/L (136-145)
[2020-11-13 00:40] LABS: Atypical Lymphocyte 1+ %; Differential Comment SCANNED
[2020-11-13 01:02] LABS: Mucous, Urine 0 SEEN /hpf (<or=2+)
[2020-11-13 01:03] LABS: Color, Urine Yellow (Yellow); Glucose, Dipstick Normal (Normal); Ketone-Dipstick Negative (Negative); Leukocyte Esterase-Dipstick 100 /ul (Negative); Nitrite-Dipstick Negative (Negative); Occult Blood-Urine Negative /ul (Negative); Protein-Dipstick Negative (Negative); Urine Bilirubin Dipstick Negative (Negative); Urine Clarity Sl. Cloudy (Clear); Urine Urobilinogen Normal (Normal)
[2020-11-13 01:28] LABS: Bacteria 3+ /hpf (None Seen); Red Blood Cells-Urine 0-5 SEEN /hpf (0-5); Squamous Epithelial Cells - UA 10-25 SEEN /hpf (5-10); White Blood Cells 5-10 SEEN /hpf (0-5)
[2020-11-13] MEDS: Nitrofurantoin Macrocrystals 100 MG Capsule PO (04:58)
== END 2020-11-13 06:20 ==
PROVIDERS: Emergency Provider Emergency Medicine; PCP Family Medicine
DX: R45.851 Suicidal ideations (principal); N39.0 Urinary tract infection, site not specified; F31.9 Bipolar disorder, unspecified; E28.2 Polycystic ovarian syndrome; F41.8 Other specified anxiety disorders; Z79.899 Other long term (current) drug therapy; F17.200 Nicotine dependence, unspecified, uncomplicated
CPT/HCPCS: 80048; 80307; 81001; 82077; 84703; 85025; 87426; 99285

== ENCOUNTER 2020-12-31 23:05 | Emergency (ER) | payer MEDICAID, SELFPAY ==
[2020-12-31 23:06] VITALS: BP 157/114; PULSE 92; RESP 16; TEMP 36.5; O2SAT 99; BMI 59.3
--- NOTE | 2020-12-31 23:16 | EKG12_ITS ---
Test Reason : CP Blood Pressure : / mmHG Vent. Rate : 089 BPM Atrial Rate : 089 BPM P-R Int : 154 ms QRS Dur : 076 ms QT Int : 364 ms P-R-T Axes : 014 019 002 degrees QTc Int : 442 ms Normal sinus rhythm Normal ECG Confirmed by PORTER TUCKER MD ([id number]), newspaper copy editor PASHA PASTOR ([id number]) on 01/04/2021 9:36:53 AM Referred By: MR Confirmed By:PORTER TUCKER MD
[2020-12-31] MEDS: Ondansetron 4 MG/2 ML Vial IV (23:28)
--- NOTE | 2020-12-31 23:29 | ED.DCSUM_ITS ---
History of Present Illness Chief Complaint: Chest Pain Informant: Patient Narrative: Patient presenting for evaluation secondary to chest pain. Patient has a underlying history of bipolar, polycystic ovary, borderline diabetes and obesity. Patient states that since about 5 PM she has had continuous chest pain with some radiation to the right. Patient states that it is associated with some lightheadedness and shortness of breath. No real exacerbating relieving factors with it, she describes it as sharp. Patient states that this pain preceded episodes where she had nausea and vomiting, 3 episodes of nonbloody nonbilious emesis. Patient denies any history of DVT or PE, but she is on control. No recent travel or surgery, or hemoptysis. She denies any personal history of heart disease. Patient states that she has had a prior similar episode in the past that spontaneously resolved. Review of systems otherwise negative. Past Medical History - Allergies and Home Meds Allergies/Adverse Reactions: Allergies No Known Allergies Allergy (Verified 12/31/20 23:08) Primary Care Physician: Samreen Eid DO [Primary Care Provider] - Prior records reviewed: Yes Past Medical History: - - Polycystic ovarian syndrome, bipolar Surgical History: cholecystectomy Lives: With Family Smoking Status: Current every day smoker Alcohol: None Drugs: None Review of Systems All systems negative except as indicated General: Denies: Chills, Fever, Sweats Eyes: Denies: Visual changes - bilaterally, Diplopia ENT: Denies: Rhinorrhea, Sore throat Cardiovascular: Reports: Chest pain Respiratory: Reports: Dyspnea Gastrointestinal: Denies: Abdominal pain, Nausea, Vomiting, Diarrhea, Melena, Hematochezia Genitourinary: Denies: Dysuria, Hematuria, Frequency Musculoskeletal: Denies: Back pain, Extremity Pain Skin: Denies: Rash, Wounds Neurological: Denies: Headache, Weakness, Numbness Physical Exam Vital Signs/Narrative: Vital Signs Temp Pulse Resp BP Pulse Ox 12/31/20 23:06 97.7 F L 92 16 157/114 H 99 Inital Vital Signs reviewed: Yes General: Well nourished, Well developed, Obese, No Acute Distress Head: Normocephalic, Atraumatic Eyes: Perrl, EOMI ENT: Moist mucous membranes, No rhinorrhea Neck: Supple, Nontender Cardiovascular: Regular rate, Regular rhythm, No murmurs Respiratory: No distress, CTA bilaterally, Chest nontender Abdomen: Soft, Nontender, Nondistended, Normal bowel sounds Back: Nontender, Normal Inspection Extremities: Nontender, No edema Skin: Normal color, No rash Neurological: Alert, Oriented x3, Cranial nerves II-XII grossly intact, Normal Strength, Normal Sensation Psychological: Normal affect, Normal Mood Diagnostic/Tx/Re-eval Chest X-Ray - ED: 2 View, Read by ED Physician, Normal Laboratory Data 12/31/20 12/31/20 23:33 23:33 WBC 15.6 H RBC 4.68 Hgb 13.2 Hct 40.5 MCV 86.5 MCH 28.2 MCHC 32.6 RDW Std Deviation 39.8 RDW Coeff of Mariel 12.7 Plt Count 411 MPV 9.4 Immature Gran % (Auto) 0.200 Neut % (Auto) 59.7 Lymph % (Auto) 33.0 [place] % (Auto) 6.6 Eos % (Auto) 0.2 Baso % (Auto) 0.3 Absolute Neuts (auto) 9.4 H Absolute Lymphs (auto) 5.16 H Nucleated RBC % 0 Sodium 139 Potassium 3.5 Chloride 105 Carbon Dioxide 28.0 Anion Gap 6 BUN 7 Creatinine 0.67 Estim Creat Clear Calc 108.03 Est GFR (MDRD) Af Amer 140 Est GFR (MDRD) Non-Af 116 BUN/Creatinine Ratio 10.4 Glucose 96 Calcium 8.8 Troponin I < 0.015 - EKG Initial EKG Interpretation: - - Sinus rhythm of [address] segments, normal T waves, normal MN and QTc intervals no evidence of acute ischemia or arrhythmia. No evidence of WPW or [place] morphology. - Medical Decision Making Patient presented secondary to chest pain. EKG was found to be unremarkable. CBC chemistry and troponin were indicative only of some leukocytosis likely secondary to the patient's nausea and vomiting. Troponin was negative, electrolytes showed no significant derangement normal renal function. PA and lateral chest x-ray by my personal review was unremarkable no signs of pneumomediastinum, pneumonia, cardiac enlargement, or acute cardiopulmonary process. Patient was given Zofran in the emergency department she did have some symptomatic improvement she was then given a GI cocktail. Patient's heart score is a maximum of 1 I do not feel that she requires admission. Likewise patient has a normal pulse ox and is not tachycardic, and although she does have a history of oral contraceptive use I do not feel that this is a presentation of a pulmonary embolus. Patient was given reassurance, she will follow-up with primary care as needed. Patient was discharged in stable condition. ED Disposition - Plan for ED Patient: Disposition: Home or Assisted Living Diagnosis: Chest pain Instructions: ED Chest Pain, Uncertain Cause Referrals: Samreen Eid DO [Primary Care Provider] - 3-5 Days if not improving
[2020-12-31 23:34] VITALS: O2SAT 99
[2020-12-31 23:37] LABS: Absolute Lymphocyte Count 5.16 X10^3/uL (0.83-4.51); Absolute Neutrophil Count 9.4 X10^3/uL (2.0-7.7); Basophil# 0.04 X10^3/uL; Basophil% 0.3 % (0-1); Eosinophil# 0.03 X10^3/uL; Eosinophils% 0.2 % (0-5); Hematocrit 40.5 % (37-47); Hemoglobin 13.2 g/dL (12.0-15.0); Lymphocyte # 5.16 X10^3/ul (4.0); Mean Corp Hgb Conc 32.6 g/dL (32-36); Mean Corpuscular Hgb 28.2 pg (27.0-32.0); Mean Corpuscular Volume 86.5 fL (81-99); Mean Platelet Vol. 9.4 fl (6.2-12.0); Monocyte# 1.03 X10^3/uL; Monocyte% 6.6 % (0-10); NRBC Flagged by Analyzer 0 % (0-5); Neutrophil # 9.35 X10^3/uL (2.7-7.7); Neutrophil % 59.7 % (47-70); POSITIVE DIFFERENTIAL YES; Platelet Count 411 K/mm3 (150-450); RBC Distribution Width CV 12.7 % (11.6-14.6); RBC Distribution Width SD 39.8 fl (35.1-43.9); Red Blood Count 4.68 M/mm3 (4.2-5.4); White Blood Count 15.6 K/mm3 (4.4-11.0)
[2020-12-31 23:44] LABS: Differential Indicated SCAN CRITERIA MET
--- NOTE | 2020-12-31 23:45 | RAD_ITS ---
STUDY: X-RAY CHEST REASON FOR EXAM: Female, 25 years old. chest pain radiating into right chest since 5 pm this evening. TECHNIQUE: Frontal and lateral views of the chest. COMPARISON: 05/31/2020. FINDINGS: There are no confluent pulmonary infiltrates. There is no demonstrated pleural abnormality. Normal size heart. Normal mediastinum and remberto. Normal visualized aortic arch and descending thoracic aorta. There are no demonstrated acute fractures or destructive bone lesions. There is no demonstrated abnormality of the visualized soft tissue structures of the upper abdomen. RAD/Chest PA and Lateral IMPRESSION: Normal x-ray examination of the chest.w Electronically Signed: Tushar Williamson MD at 0:07 EST , Service support ,
[2020-12-31 23:59] LABS: Anion Gap 6 (5-15); BUN 7 mg/dL (7-18); BUN/Creat Ratio 10.4 RATIO (10-20); Calcium,Total 8.8 mg/dL (8.5-10.1); Chloride 105 mmol/L (98-107); Creatinine, Serum 0.67 mg/dL (0.55-1.02); EST Glomerular Filtration Rate 116 mL/min (>60); Est Glom Filt Rate - Afr Amer 140 mL/min (>60); Estimated Creatinine Clearance 108.03 ml/min; Glucose 96 mg/dL (74-106); Potassium 3.5 mmol/L (3.5-5.1); Sodium Level 139 mmol/L (136-145)
[2021-01-01] MEDS: Mag Hydrox/Al Hydrox/Simeth 30 ML UDC PO (00:09)
[2021-01-01 00:13] VITALS: PULSE 85; RESP 18; O2SAT 98
== END 2021-01-01 00:13 | disposition home or self-care (01) ==
PROVIDERS: Emergency Provider Emergency Medicine; PCP Family Medicine
DX: R07.9 Chest pain, unspecified (principal); R42 Dizziness and giddiness; R06.00 Dyspnea, unspecified; F31.9 Bipolar disorder, unspecified; E28.2 Polycystic ovarian syndrome; R73.03 Prediabetes; E66.9 Obesity, unspecified; Z79.899 Other long term (current) drug therapy; F17.200 Nicotine dependence, unspecified, uncomplicated
CPT/HCPCS: 71046; 80048; 84484; 85025; 93005; 96374; 99284; A4216; J2405

== ENCOUNTER 2021-02-01 13:01 | Emergency (ER) | payer MEDICAID, SELFPAY ==
[2021-02-01 13:02] VITALS: BP 125/85; PULSE 105; RESP 16; TEMP 36.6; O2SAT 96; BMI 60.9
--- NOTE | 2021-02-01 14:46 | ED.DCSUM_ITS ---
History of Present Illness Informant: Patient Narrative: 25-year-old female presenting to the emergency department for nausea vomiting and shaking. Patient states she recently started a job and she is working much more than she is used to. She states that Saturday and Saturday she was going to work began shaking and experienced nausea and vomiting. She states that she really was not anxious. Saturday and Saturday when she was not working she was fine. Today she went back to work and her symptoms returned. Her mom told her she should come to the emergency department for evaluation. Patient wonders if this is more of a stress from work issue. Patient does have a significant psychiatric history. She notes that she is on oral potassium because she was experiencing muscle cramps and was found to be hypokalemic. <Noah Durant - Last Filed: 02/01/21 14:46> <Doron Mayorga - Last Filed: 02/01/21 16:58> Chief Complaint: Nausea/Vomiting - Past Medical History (1) Bipolar disorder Status: Chronic (2) Depression with anxiety Status: Chronic (3) PCOS (polycystic ovarian syndrome) Status: Chronic <Noah Durant - Last Filed: 02/01/21 14:46> Past Medical History Surgical History: cholecystectomy Lives: With Family Smoking Status: Never smoker Alcohol: None Drugs: None <Noah Durant - Last Filed: 02/01/21 14:46> <Doron Mayorga - Last Filed: 02/01/21 16:58> - Allergies and Home Meds Allergies/Adverse Reactions: Allergies No Known Allergies Allergy (Verified 02/01/21 13:01) Primary Care Physician: Samreen Eid DO [Primary Care Provider] - 3-5 Days Review of Systems General: Denies: Chills, Fever, Sweats Eyes: Denies: Visual changes - bilaterally, Diplopia ENT: Denies: Rhinorrhea, Sore throat Cardiovascular: Denies: Chest pain, Palpitations Respiratory: Denies: Dyspnea, Cough, Dyspnea on exertion Gastrointestinal: Reports: Nausea, Vomiting. Denies: Abdominal pain, Diarrhea, Melena, Hematochezia Genitourinary: Denies: Dysuria, Hematuria, Frequency Musculoskeletal: Denies: Back pain, Extremity Pain Skin: Denies: Rash, Wounds Neurological: Reports: - - Tremors. Denies: Headache, Weakness, Numbness Psych: Reports: Depression <Noah Durant - Last Filed: 02/01/21 14:46> Physical Exam Vital Signs/Narrative: Vital Signs Temp Pulse Resp BP Pulse Ox 02/01/21 13:02 97.8 F 105 H 16 125/85 H 96 Inital Vital Signs reviewed: Yes General: Well nourished, Well developed, Obese, No Acute Distress Head: Normocephalic, Atraumatic Eyes: Perrl, EOMI ENT: Moist mucous membranes, No rhinorrhea Neck: Supple, Nontender Cardiovascular: Regular rate, Regular rhythm, No murmurs Respiratory: No distress, CTA bilaterally, Chest nontender Abdomen: Soft, Nontender, Nondistended, Normal bowel sounds Back: Nontender, Normal Inspection Extremities: Nontender, No edema Skin: Normal color, No rash Neurological: Alert, Oriented x3, Cranial nerves II-XII grossly intact, Normal Strength, Normal Sensation Psychological: Normal affect, Normal Mood <Noah Durant - Last Filed: 02/01/21 14:46> Vital Signs/Narrative: Vital Signs Temp Pulse Resp BP Pulse Ox 02/01/21 16:11 14 02/01/21 13:02 97.8 F 105 H 16 125/85 H 96 <Doron Mayorga - Last Filed: 02/01/21 16:58> Diagnostic/Tx/Re-eval - Medical Decision Making Basic blood work will be obtained. If negative the patient I think can most likely be discharged home. Can write for her to have some Zofran. I do question how much of this is related to the stress of her job and her bipolar disorder. Would recommend follow-up with primary care. <Noah Durant - Last Filed: 02/01/21 14:46> Clinical Impression(s) from Imaging Studies Abdomen/Pelvis CT 02/01/21 15:18 IMPRESSION: Normal enhanced CT of the abdomen and pelvis. Electronically Signed: Mamadou Whelan MD at 16:22 EDT Tel , Service support , Laboratory Data 02/01/21 02/01/21 02/01/21 14:40 14:40 15:38 WBC 16.1 H RBC 4.77 Hgb 13.5 Hct 40.6 MCV 85.1 MCH 28.3 MCHC 33.3 RDW Std Deviation 39.8 RDW Coeff of Mariel 12.9 Plt Count 484 H MPV 9.4 Immature Gran % (Auto) 0.400 Neut % (Auto) 67.4 Lymph % (Auto) 25.4 [place] % (Auto) 6.2 Eos % (Auto) 0.4 Baso % (Auto) 0.2 Absolute Neuts (auto) 10.8 H Absolute Lymphs (auto) 4.08 Nucleated RBC % 0 Sodium 136 Potassium 3.8 Chloride 105 Carbon Dioxide 27.0 Anion Gap 4 L BUN 9 Creatinine 0.68 Estim Creat Clear Calc 106.44 Est GFR (MDRD) Af Amer 139 Est GFR (MDRD) Non-Af 115 BUN/Creatinine Ratio 13.3 Glucose 107 H Calcium 9.1 Total Bilirubin 0.20 AST 29 ALT 31 Alkaline Phosphatase 54 Total Protein 7.1 Albumin 3.0 L Globulin 4.1 Albumin/Globulin Ratio 0.7 L Lipase 75 Urine Color Yellow Urine Clarity Clear Urine pH 6.0 Ur Specific [place] 1.025 Urine Protein Negative Urine Glucose (UA) Normal Urine Ketones Negative Urine Occult Blood Negative Urine Nitrite Negative Urine Bilirubin Negative Urine Urobilinogen Normal Ur Leukocyte Esterase 25 H Urine RBC 0 SEEN Urine WBC 0-5 SEEN Ur Squamous Epith Cells 5-10 SEEN Urine Bacteria 1+ Urine Mucus 0 SEEN - Medical Decision Making Patient signed out to me by previous physician. CT of the abdomen pelvis negative. Patient feeling much improved. On repeat examination at [facility] patient continues to have a benign abdomen. Patient be given Zofran for home and asked to follow-up with primary care. Stable at time of discharge. Impression: 1. Abdominal pain 2. Vomiting <Doron Mayorga - Last Filed: 02/01/21 16:58> ED Disposition <Noah Durant - Last Filed: 02/01/21 14:46> <Doron Mayorga - Last Filed: 02/01/21 16:58> - Plan for ED Patient: Disposition: Home or Assisted Living Diagnosis: Vomiting Instructions: ED Vomiting (Adult) Prescriptions: Ondansetron [Zofran Odt] 4 mg PO Q6H PRN PRN #15 tablet PRN Reason: Nausea Prescription Printed Referrals: Samreen Eid DO [Primary Care Provider] - 3-5 Days
[2021-02-01 15:00] LABS: Absolute Lymphocyte Count 4.08 X10^3/uL (0.83-4.51); Absolute Neutrophil Count 10.8 X10^3/uL (2.0-7.7); Basophil# 0.04 X10^3/uL; Basophil% 0.2 % (0-1); Eosinophil# 0.06 X10^3/uL; Eosinophils% 0.4 % (0-5); Hematocrit 40.6 % (37-47); Hemoglobin 13.5 g/dL (12.0-15.0); Lymphocyte # 4.08 X10^3/ul (0.83-4.51); Lymphocyte % 25.4 % (19-41); Mean Corp Hgb Conc 33.3 g/dL (32-36); Mean Corpuscular Hgb 28.3 pg (27.0-32.0); Mean Corpuscular Volume 85.1 fL (81-99); Mean Platelet Vol. 9.4 fl (6.2-12.0); Monocyte% 6.2 % (0-10); NRBC Flagged by Analyzer 0 % (0-5); Neutrophil # 10.84 X10^3/uL (2.7-7.7); Neutrophil % 67.4 % (47-70); Platelet Count 484 K/mm3 (150-450); RBC Distribution Width CV 12.9 % (11.6-14.6); RBC Distribution Width SD 39.8 fl (35.1-43.9); Red Blood Count 4.77 M/mm3 (4.2-5.4); White Blood Count 16.1 K/mm3 (4.4-11.0)
[2021-02-01 15:12] LABS: ALB/GLOB Ratio 0.7 RATIO (0.9-2.4); AST(SGOT) 29 U/L (15-37); Alanine Aminotransfer ALT/SGPT 31 U/L (13-56); Alkaline Phosphatase 54 U/L (45-117); Anion Gap 4 (5-15); BUN 9 mg/dL (7-18); BUN/Creat Ratio 13.3 RATIO (10-20); Calcium,Total 9.1 mg/dL (8.5-10.1); Chloride 105 mmol/L (98-107); Creatinine, Serum 0.68 mg/dL (0.55-1.02); EST Glomerular Filtration Rate 115 mL/min (>60); Est Glom Filt Rate - Afr Amer 139 mL/min (>60); Estimated Creatinine Clearance 106.44 ml/min; Globulin 4.1 g/dL (2.2-4.2); Glucose 107 mg/dL (74-106); Lipase 75 U/L (73-393); Potassium 3.8 mmol/L (3.5-5.1); Protein, Total 7.1 g/dL (6.4-8.2); Sodium Level 136 mmol/L (136-145)
--- NOTE | 2021-02-01 15:18 | CT_ITS ---
STUDY: CT ABDOMEN AND PELVIS WITH CONTRAST REASON FOR EXAM: Female, 25 years old. abdominal pain and vomiting RADIATION DOSAGE (If Supplied By Facility): CTDIvol = ( 40.48 ) mGy, DLP = ( 2145.12 ) mGycm TECHNIQUE: Transaxial images were obtained from the dome of the diaphragm to the symphysis pubis without oral contrast. IV 100mL Isovue-300 was administered. Sagittal and coronal images were reconstructed. Individualized dose optimization techniques were used for this CT. COMPARISON: 04/12/2020 FINDINGS: The visualized lung bases are unremarkable. The visualized portions of the heart are within normal limits. Normal liver. There are surgical clips in the gallbladder fossa consistent with a prior cholecystectomy. Normal spleen. Normal pancreas. Normal bilateral adrenal glands. Normal right kidney. Normal left kidney. Normal visualized stomach. Normal small intestine. Normal colon. The appendix is visualized and appears normal. Normal abdominal aorta. Normal inferior vena cava. Normal retroperitoneum. Normal urinary bladder. Normal abdominal wall. Normal osseous structures. CT/Abdomen/Pelvis W IV Cont ONLY IMPRESSION: Normal enhanced CT of the abdomen and pelvis. Electronically Signed: Mamadou Whelan MD at 16:22 EDT Tel , Service support ,
[2021-02-01 15:48] LABS: Mucous, Urine 0 SEEN /hpf (<or=2+); Red Blood Cells-Urine 0 SEEN /hpf (0-5)
[2021-02-01 15:51] LABS: Color, Urine Yellow (Yellow); Glucose, Dipstick Normal (Normal); Ketone-Dipstick Negative (Negative); Leukocyte Esterase-Dipstick 25 /ul (Negative); Nitrite-Dipstick Negative (Negative); Occult Blood-Urine Negative /ul (Negative); Protein-Dipstick Negative (Negative); Specific Gravity, Urine 1.025 (1.002-1.030); Urine Bilirubin Dipstick Negative (Negative); Urine Clarity Clear (Clear); Urine Urobilinogen Normal (Normal)
[2021-02-01 16:07] LABS: Bacteria 1+ /hpf (None Seen); Squamous Epithelial Cells - UA 5-10 SEEN /hpf (5-10); White Blood Cells 0-5 SEEN /hpf (0-5)
[2021-02-01 16:11] VITALS: RESP 14
[2021-02-01 17:10] VITALS: PULSE 87; RESP 16; O2SAT 98
[2021-02-01 17:39] LABS: Internal QC Validated? YES +Cl - CLEAR BKGD; Pregnancy, Urine Negative Negative
== END 2021-02-01 17:11 | disposition home or self-care (01) ==
PROVIDERS: Emergency Medicine; Emergency Provider Emergency Medicine; PCP Family Medicine
DX: R11.2 Nausea with vomiting, unspecified (principal); R10.9 Unspecified abdominal pain; E66.9 Obesity, unspecified; Z68.44 Body mass index [BMI] 60.0-69.9, adult; E28.2 Polycystic ovarian syndrome; F31.9 Bipolar disorder, unspecified; F41.8 Other specified anxiety disorders; E87.6 Hypokalemia; Z79.899 Other long term (current) drug therapy
CPT/HCPCS: 74177; 80053; 81001; 81025; 83690; 85025; 87086; 87088; 99284; Q9967; A4216

== ENCOUNTER 2021-02-08 16:06 | Emergency (ER) | payer MEDICAID, SELFPAY ==
[2021-02-08 16:07] VITALS: BP 161/86; PULSE 85; RESP 18; TEMP 36.3; O2SAT 95; BMI 61.4
--- NOTE | 2021-02-08 17:00 | EKG12_ITS ---
Test Reason : CP Blood Pressure : / mmHG Vent. Rate : 092 BPM Atrial Rate : 092 BPM P-R Int : 152 ms QRS Dur : 070 ms QT Int : 358 ms P-R-T Axes : 046 027 016 degrees QTc Int : 442 ms Normal sinus rhythm Normal ECG Confirmed by GRANT PARKS, ESTELLE ([id number]), acquisition editor PASHA PASTOR ([id number]) on 02/10/2021 8:16:29 AM Referred By: MARILY Confirmed By:AMAYA BURNS MD
[2021-02-08 17:08] VITALS: O2SAT 97
[2021-02-08] MEDS: Aspirin 81 MG TAB.CHEW 324 MG PO (17:12)
[2021-02-08 17:14] LABS: Absolute Lymphocyte Count 4.56 X10^3/uL (0.83-4.51); Absolute Neutrophil Count 11.4 X10^3/uL (2.0-7.7); Basophil# 0.04 X10^3/uL; Basophil% 0.2 % (0-1); Eosinophil# 0.07 X10^3/uL; Eosinophils% 0.4 % (0-5); Hematocrit 44.4 % (37-47); Hemoglobin 14.8 g/dL (12.0-15.0); Lymphocyte # 4.56 X10^3/ul (0.83-4.51); Lymphocyte % 26.7 % (19-41); Mean Corp Hgb Conc 33.3 g/dL (32-36); Mean Corpuscular Hgb 28.3 pg (27.0-32.0); Mean Corpuscular Volume 84.9 fL (81-99); Mean Platelet Vol. 9.9 fl (6.2-12.0); Monocyte# 0.97 X10^3/uL; Monocyte% 5.7 % (0-10); NRBC Flagged by Analyzer 0 % (0-5); Neutrophil # 11.38 X10^3/uL (2.7-7.7); Neutrophil % 66.5 % (47-70); Platelet Count 521 K/mm3 (150-450); RBC Distribution Width CV 12.8 % (11.6-14.6); RBC Distribution Width SD 39.2 fl (35.1-43.9); Red Blood Count 5.23 M/mm3 (4.2-5.4); White Blood Count 17.1 K/mm3 (4.4-11.0)
[2021-02-08 17:19] LABS: D-Dimer Quantitative (DVT/PE) 0.34 FEU/ug/m (0.27-0.49)
[2021-02-08 17:23] LABS: Anion Gap 7 (5-15); BUN 6 mg/dL (7-18); BUN/Creat Ratio 8.7 RATIO (10-20); Calcium,Total 9.3 mg/dL (8.5-10.1); Chloride 105 mmol/L (98-107); Creatinine, Serum 0.69 mg/dL (0.55-1.02); EST Glomerular Filtration Rate 112 mL/min (>60); Est Glom Filt Rate - Afr Amer 135 mL/min (>60); Estimated Creatinine Clearance 104.89 ml/min; Glucose 85 mg/dL (74-106); Potassium 3.5 mmol/L (3.5-5.1); Sodium Level 137 mmol/L (136-145)
--- NOTE | 2021-02-08 17:30 | RAD_ITS ---
INDICATION: chest pain EXAMINATION/TECHNIQUE: X-RAY - XR Chest 2 Views COMPARISON: 12/31/2020. FINDINGS: The lungs are clear. The cardiomediastinal silhouette is unremarkable. No pleural effusion or pneumothorax. No acute osseous abnormalities. RAD/Chest PA and Lateral IMPRESSION: No acute radiographic abnormalities. Electronically Signed: Josemanuel Obregon MD at 17:55 EDT Tel , Service support ,
[2021-02-08 18:06] VITALS: BP 137/84; PULSE 83; RESP 24; O2SAT 98
--- NOTE | 2021-02-08 18:43 | ED.DCSUM_ITS ---
History of Present Illness Chief Complaint: Chest Pain Narrative: Patient presenting for evaluation secondary to chest pain. Patient states that at about 1330 work she had a sudden onset of chest pain. She reports that it was under her right breast, it was continuous, sharp and it is worse with taking deep breath. She denies any shortness of breath. She denies any exertional component associated with this. No fevers chills night sweats nausea vomiting associated with this. She denies any history of DVT or PE, recent travel or surgery hemoptysis, but she does smoke and take control. No cardiovascular risk factors. She denies any other associated signs or symptoms, no skin rashes. Review of systems otherwise negative. Past Medical History - Allergies and Home Meds Allergies/Adverse Reactions: Allergies No Known Allergies Allergy (Verified 02/08/21 16:07) Primary Care Physician: Samreen Eid DO [Primary Care Provider] - Prior records reviewed: Yes Past Medical History: - - Anxiety Surgical History: cholecystectomy Smoking Status: Current every day smoker Alcohol: None Drugs: None Review of Systems All systems negative except as indicated General: Denies: Chills, Fever, Sweats Eyes: Denies: Visual changes - bilaterally, Diplopia ENT: Denies: Rhinorrhea, Sore throat Cardiovascular: Reports: Chest pain Respiratory: Denies: Dyspnea, Cough, Dyspnea on exertion Gastrointestinal: Denies: Abdominal pain, Nausea, Vomiting, Diarrhea, Melena, Hematochezia Genitourinary: Denies: Dysuria, Hematuria, Frequency Musculoskeletal: Denies: Back pain, Extremity Pain Skin: Denies: Rash, Wounds Neurological: Denies: Headache, Weakness, Numbness Physical Exam Vital Signs/Narrative: Vital Signs Temp Pulse Resp BP Pulse Ox 02/08/21 18:06 83 24 H 137/84 H 98 02/08/21 17:08 97 02/08/21 16:07 97.4 F L 85 18 161/86 H 95 Inital Vital Signs reviewed: Yes General: Well nourished, Well developed, Obese, No Acute Distress Head: Normocephalic, Atraumatic Eyes: Perrl, EOMI ENT: Moist mucous membranes, No rhinorrhea Neck: Supple, Nontender Cardiovascular: Regular rate, Regular rhythm, No murmurs Respiratory: No distress, CTA bilaterally, Chest nontender, - - No evidence of vesicular rash noted on chest, no reproducible tenderness to palpation. Abdomen: Soft, Nontender, Nondistended, Normal bowel sounds Back: Nontender, Normal Inspection Extremities: Nontender, No edema Skin: Normal color, No rash Neurological: Alert, Oriented x3, Cranial nerves II-XII grossly intact, Normal Strength, Normal Sensation Psychological: Normal affect, Normal Mood Diagnostic/Tx/Re-eval Chest X-Ray - ED: 2 View, Read by ED Physician, Normal Clinical Impression(s) from Imaging Studies Chest X-Ray 02/08/21 17:30 IMPRESSION: No acute radiographic abnormalities. Electronically Signed: Josemanuel Obregon MD at 17:55 EDT Tel , Service support , Laboratory Data 02/08/21 02/08/21 02/08/21 16:10 16:10 16:10 WBC 17.1 H RBC 5.23 Hgb 14.8 Hct 44.4 MCV 84.9 MCH 28.3 MCHC 33.3 RDW Std Deviation 39.2 RDW Coeff of Mariel 12.8 Plt Count 521 H MPV 9.9 Immature Gran % (Auto) 0.500 Neut % (Auto) 66.5 Lymph % (Auto) 26.7 [place] % (Auto) 5.7 Eos % (Auto) 0.4 Baso % (Auto) 0.2 Absolute Neuts (auto) 11.4 H Absolute Lymphs (auto) 4.56 H Nucleated RBC % 0 D-Dimer Quant (PE/DVT) 0.34 Sodium 137 Potassium 3.5 Chloride 105 Carbon Dioxide 25.0 Anion Gap 7 BUN 6 L Creatinine 0.69 Estim Creat Clear Calc 104.89 Est GFR (MDRD) Af Amer 135 Est GFR (MDRD) Non-Af 112 BUN/Creatinine Ratio 8.7 L Glucose 85 Calcium 9.3 Troponin I < 0.015 - EKG Initial EKG Interpretation: - - Sinus rhythm [address] segments normal T waves normal ND and QTc intervals no evidence of acute ischemia or arrhythmia. - Medical Decision Making Patient presented secondary to chest pain. Patient's EKG shows no signs of ischemia. CBC demonstrates leukocytosis at 17,000, this is actually the patient's baseline when trending her back. Chemistry unremarkable, D-dimer was found to be negative, and troponin found to be negative. Patient's heart score is low risk, 1 at a maximum. I do not believe that she requires admission or further observation. Patient was given reassurance about her chest pain. She will follow-up with primary care. ED Disposition - Plan for ED Patient: Disposition: Home or Assisted Living Diagnosis: Chest pain Instructions: ED Chest Pain, Uncertain Cause Referrals: Samreen Eid DO [Primary Care Provider] - 5-7 Days
== END 2021-02-08 19:10 | disposition home or self-care (01) ==
PROVIDERS: Emergency Provider Emergency Medicine; PCP Family Medicine
DX: R07.9 Chest pain, unspecified (principal); E66.9 Obesity, unspecified; Z68.44 Body mass index [BMI] 60.0-69.9, adult; F41.9 Anxiety disorder, unspecified; Z79.899 Other long term (current) drug therapy; F17.200 Nicotine dependence, unspecified, uncomplicated
CPT/HCPCS: 71046; 80048; 84484; 85025; 85379; 93005; 99284; A4216

== ENCOUNTER 2021-05-13 19:01 | Emergency (ER) | payer MEDICAID, SELFPAY ==
[2021-05-13 19:03] VITALS: BP 127/72; PULSE 95; RESP 14; TEMP 36.8; O2SAT 97; BMI 58.6
--- NOTE | 2021-05-13 19:35 | ED.VIS.BACK ---
HPI History of Present Illness Chief Complaint: Back Informant: patient Narrative Narrative: Patient states she has pain in the right lower back. On Saturday she slept on the couch. When she woke up Saturday morning it sore. It slowly gotten a little bit worse. It is better if she rests. Is worse when she is doing a lot of lifting and pulling and pushing at work. She did put an ice pack on it at work and that helped her symptoms quite a bit. She has no radiation of pain. No bowel or bladder dysfunction. No hematuria. She is eating drinking normally. [facility] Medical History Anxiety Bipolar 1 disorder Depression PCOS (polycystic ovarian syndrome) Home Medications olanzapine [Zyprexa] 10 mg PO DAILY 02/28/19 [History Last Taken 02/28/19] PNV cmb#95-ferrous fumarate-FA 1 ea PO DAILY 10/27/19 [History Last Taken Unknown] ondansetron 8 mg PO Q8H PRN PRN #20 tab 07/05/20 [Rx Last Taken Unknown] hydroxyzine pamoate 50 mg PO BID PRN 07/20/20 [History Last Taken Unknown] biotin 1 mg PO DAILY 07/29/20 [History Last Taken Unknown] lamotrigine 150 mg PO BID 12/31/20 [History Last Taken Unknown] benztropine 0.5 mg PO DAILY 05/13/21 [History Last Taken Unknown] cyclobenzaprine 10 mg PO TID PRN #15 tab 05/13/21 [Rx Last Taken Unknown] liraglutide [Victoza 2-Robert] 1 mg SUBCUT DAILY 05/13/21 [History Last Taken Unknown] naproxen [Naprosyn] 500 mg PO BID PRN #20 tab 05/13/21 [Rx Last Taken Unknown] Allergy/AdvReac Type Severity Reaction Status Date / Time No Known Allergies Allergy Verified 05/13/21 19:03 Social History Smoking Status: Current every day smoker tobacco type: smokeless tobacco ROS ROS ED Constitutional Constitutional ED: Denies chills, fever(s) or sweats Eyes Eyes: Denies blurry vision Cardiovascular Cardiovascular: Denies chest pain or palpitations Respiratory/Chest Respiratory/Chest: Denies dyspnea or sputum Gastrointestinal Gastrointestinal: Denies abdominal pain, constipation, diarrhea, nausea or vomiting Genitourinary Genitourinary ED: Denies dysuria, hematuria or urinary frequency Musculoskeletal Musculoskeletal: Reports back pain; Denies neck pain Integumentary Denies rash Neurologic Neurologic: Denies headache(s) or paresthesias Hematologic/Lymphatic Hematologic/Lymphatic: Denies easy bleeding or easy bruising EXAM Physical Exam Const Vital Signs: 05/13/21 19:03 Temperature 98.3 F Temperature Source Temporal Pulse Rate 95 Respiratory Rate 14 Blood Pressure 127/72 H Blood Pressure Mean 90 Pulse Ox 97 Oxygen Delivery Method Room Air Positive well nourished, well developed and obese General Appearance ED: well developed and NAD Nutritional Appearance: obese HEENT Negative for trauma or tenderness Eyes PERRL Resp normal respiratory effort and clear to auscultation bilaterally Cardio regular rate and regular rhythm GI normal to inspection, nondistended, normoactive bowel sounds, soft to palpation and non-tender Back/Spine normal to inspection Back/Spine Narrative: Patient has right lower paraspinal tenderness. It hurts when she twists. Hurts when she moves. Is not CVA tenderness. There is no rash. No vesicles. No erythema. Is not warm or hot. General Back: Negative for CVA tenderness Extremity normal to inspection General Extremety ED: Negative for tenderness Neuro Neuro Narrative: Patient has normal strength. When she sits up it sore but she has normal strength and gait. No numbness. Sensorium / Orientation: alert Motor Exam: Negative for strength abnormal Psych mental status grossly normal Skin no rashes or lesions noted MDM MDM MDM Narrative Medical decision making narrative: Patient has musculoskeletal back pain likely from sleeping on the couch which was abnormal for her. She will be given nonsteroidals as well as muscle relaxant. She will use ice. She will return with worsening pain, radicular symptoms, bowel or bladder dysfunction, fevers or other concerns. Discharge Plan Triage Chief Complaint: Back ED Provider: Matheus Cervantes Dx/Rx/DC Orders Clinical Impression: Lumbar back pain Instructions: ED Back Spasm, No Trauma Prescriptions: New naproxen [Naprosyn] 500 mg tablet 500 mg PO BID PRN (Reason: pain) Qty: 20 RF: 0 cyclobenzaprine 10 mg tablet 10 mg PO TID PRN (Reason: muscle spasm) Qty: 15 RF: 0 No Action olanzapine [Zyprexa] 7.5 MG tablet 10 mg PO DAILY RF: 0 PNV cmb#95-ferrous fumarate-FA 1 EACH tablet 1 ea PO DAILY RF: 0 ondansetron 4 MG tablet 8 mg PO Q8H PRN PRN (Reason: Nausea) Qty: 20 RF: 0 hydroxyzine pamoate 50 MG capsule 50 mg PO BID PRN (Reason: Anxiety) RF: 0 biotin 1 MG tablet 1 mg PO DAILY RF: 0 lamotrigine 150 MG tablet 150 mg PO BID RF: 0 benztropine 0.5 mg tablet 0.5 mg PO DAILY RF: 0 Victoza 2-Robert 0.6 mg/0.1 mL (18 mg/3 mL) pen injector 1 mg SUBCUT DAILY RF: 0 Primary Care Provider: Samreen Eid Referrals: Samreen Eid DO [Primary Care Provider] - 3-5 Days if not improving Disposition Disposition: Home, Self Care
[2021-05-13] MEDS: Naproxen 375 MG Tablet PO (20:02)
[2021-05-13] MEDS: cycloBENZAPRine HCl 10 MG Tablet PO (20:02)
== END 2021-05-13 20:04 | disposition home or self-care (01) ==
LOC: ED 19:42
PROVIDERS: Emergency Provider Emergency Medicine; PCP Family Medicine
DX: M54.5 Low back pain (principal); E28.2 Polycystic ovarian syndrome; F31.9 Bipolar disorder, unspecified; F41.9 Anxiety disorder, unspecified; Z79.899 Other long term (current) drug therapy; F17.200 Nicotine dependence, unspecified, uncomplicated
CPT/HCPCS: 99282

== ENCOUNTER 2021-06-14 00:39 | Emergency (ER) | payer MEDICAID, SELFPAY ==
[2021-06-14 00:40] VITALS: BP 135/80; PULSE 84; RESP 18; TEMP 35.9; O2SAT 97; BMI 59.1
[2021-06-14] MEDS: Dicyclomine 10 MG Capsule 20 MG PO (01:52)
[2021-06-14] MEDS: Ondansetron ODT 4 MG Tablet PO (01:52)
--- NOTE | 2021-06-14 02:58 | EX.ED.DYSGE1 ---
HPI History of Present Illness Chief Complaint: Nausea/Vomiting Informant: patient Narrative Narrative: Patient presented with nausea and vomiting. This is been going on for about 24 hours. Her last episode was about 3 hours ago. She gets occasional abdominal cramps but not having abdominal pain. No urinary symptoms. She has had some soft stools but not diarrhea. No blood in the stool. No blood in the vomitus. No fevers chills. No known exposure to Covid. She states sometimes she gets nausea and vomiting but it normally does not last a day. She will use Zofran but does not have any right now. Nothing really makes her symptoms better or worse so far. [facility] Medical History Anxiety Bipolar 1 disorder Depression PCOS (polycystic ovarian syndrome) Home Medications olanzapine [Zyprexa] 10 mg PO DAILY 02/28/19 [History Last Taken 02/28/19] PNV cmb#95-ferrous fumarate-FA 1 ea PO DAILY 10/27/19 [History Last Taken Unknown] ondansetron 8 mg PO Q8H PRN PRN #20 tab 07/05/20 [Rx Last Taken Unknown] hydroxyzine pamoate 50 mg PO BID PRN 07/20/20 [History Last Taken Unknown] biotin 1 mg PO DAILY 07/29/20 [History Last Taken Unknown] lamotrigine 150 mg PO BID 12/31/20 [History Last Taken Unknown] benztropine 0.5 mg PO DAILY 05/13/21 [History Last Taken Unknown] cyclobenzaprine 10 mg PO TID PRN #15 tab 05/13/21 [Rx Last Taken Unknown] liraglutide [Victoza 2-Robert] 1 mg SUBCUT DAILY 05/13/21 [History Last Taken Unknown] naproxen [Naprosyn] 500 mg PO BID PRN #20 tab 05/13/21 [Rx Last Taken Unknown] dicyclomine 20 mg PO TID PRN #7 tab 06/14/21 [Rx Last Taken Unknown] ondansetron 4 mg PO Q8H PRN #10 tab 06/14/21 [Rx Last Taken Unknown] Allergy/AdvReac Type Severity Reaction Status Date / Time No Known Allergies Allergy Verified 05/13/21 19:03 Social History Smoking Status: Current every day smoker tobacco type: e-cigarettes and smokeless tobacco ROS ROS ED Constitutional Constitutional ED: Denies chills, fever(s) or sweats Eyes Eyes: Denies blurry vision ENT ENT ED: Denies rhinorrhea or sore throat Cardiovascular Cardiovascular: Denies chest pain or palpitations Respiratory/Chest Respiratory/Chest: Denies cough or dyspnea Gastrointestinal Gastrointestinal: Reports diarrhea, nausea and vomiting; Denies abdominal pain, constipation or melena Genitourinary Genitourinary ED: Denies dysuria or hematuria Integumentary Denies rash Neurologic Neurologic: Denies headache(s) Psychiatric Psychiatric: Reports anxiety and depression Endocrine Endocrinology: Denies polyuria Allergic/Immunologic Allergic/Immunologic ED: Denies urticaria EXAM Physical Exam Const Vital Signs: 06/14/21 00:40 06/14/21 03:27 Temperature 96.7 F L Temperature Source Temporal Pulse Rate 84 75 Respiratory Rate 18 15 Blood Pressure 135/80 H Blood Pressure Mean 98 Pulse Ox 97 99 Oxygen Delivery Method Room Air Positive well nourished and well developed General Appearance ED: well developed and NAD HEENT Reports moist mucous membranes Eyes General Eye ED: Negative for pale conjunctiva or scleral icterus Resp normal respiratory effort and clear to auscultation bilaterally Cardio regular rate and regular rhythm GI normal to inspection, nondistended, normoactive bowel sounds and non-tender GI Narrative: Overall, abdomen is quite benign on exam. Her bowel sounds are normal. They are not increased or decreased. There is no mass. There is no tenderness. Palpation: soft Back/Spine no CVA tenderness Extremity normal to inspection General Extremety ED: Negative for edema General Extremity: Negative for edema Neuro oriented x3 Sensorium / Orientation: alert Psych mental status grossly normal Skin no rashes or lesions noted MDM MDM MDM Narrative Medical decision making narrative: Patient is rechecked. She has drank a cup of water. Nausea is gone. She feels better. Her abdomen is still benign. I will get her home with prescriptions for Zofran which she is used successfully before. I will also write for a few Bentyl. We discussed reasons to return. Discharge Plan Triage Chief Complaint: Nausea/Vomiting ED Provider: Matheus Cervantes Dx/Rx/DC Orders Clinical Impression: Nausea vomiting and diarrhea Instructions: ED Vomiting (Adult) Prescriptions: New ondansetron 4 mg tablet,disintegrating 4 mg PO Q8H PRN (Reason: nausea and vomiting) Qty: 10 RF: 0 dicyclomine 20 mg tablet 20 mg PO TID PRN (Reason: cramps) Qty: 7 RF: 0 No Action olanzapine [Zyprexa] 7.5 MG tablet 10 mg PO DAILY RF: 0 PNV cmb#95-ferrous fumarate-FA 1 EACH tablet 1 ea PO DAILY RF: 0 ondansetron 4 MG tablet 8 mg PO Q8H PRN PRN (Reason: Nausea) Qty: 20 RF: 0 hydroxyzine pamoate 50 MG capsule 50 mg PO BID PRN (Reason: Anxiety) RF: 0 biotin 1 MG tablet 1 mg PO DAILY RF: 0 lamotrigine 150 MG tablet 150 mg PO BID RF: 0 benztropine 0.5 mg tablet 0.5 mg PO DAILY RF: 0 Victoza 2-Robert 0.6 mg/0.1 mL (18 mg/3 mL) pen injector 1 mg SUBCUT DAILY RF: 0 naproxen [Naprosyn] 500 mg tablet 500 mg PO BID PRN (Reason: pain) Qty: 20 RF: 0 cyclobenzaprine 10 mg tablet 10 mg PO TID PRN (Reason: muscle spasm) Qty: 15 RF: 0 Primary Care Provider: Samreen Eid Referrals: Samreen Eid DO [Primary Care Provider] - 3-5 Days Disposition Disposition: Home, Self Care Discharge Date/Time: 06/14/21 03:27
[2021-06-14 03:27] VITALS: PULSE 75; RESP 15; O2SAT 99
== END 2021-06-14 03:27 | disposition home or self-care (01) ==
PROVIDERS: Emergency Provider Emergency Medicine; PCP Family Medicine
DX: R11.2 Nausea with vomiting, unspecified (principal); R19.7 Diarrhea, unspecified; E28.2 Polycystic ovarian syndrome; F31.9 Bipolar disorder, unspecified; F41.9 Anxiety disorder, unspecified; Z79.899 Other long term (current) drug therapy; F17.290 Nicotine dependence, other tobacco product, uncomplicated
CPT/HCPCS: 99283

== ENCOUNTER 2021-06-16 22:07 | Emergency (ER) | payer MEDICAID, SELFPAY ==
[2021-06-16 22:07] VITALS: BP 120/81; PULSE 85; RESP 16; TEMP 35.8; O2SAT 95; BMI 57.6
--- NOTE | 2021-06-16 22:57 | ED.RN ---
PT LWBS stated I'm just going to go to [facility].
== END 2021-06-16 22:57 | disposition left against medical advice (07) ==
LOC: ED 23:03
PROVIDERS: PCP Family Medicine
DX: Z53.21 Procedure and treatment not carried out due to patient leaving prior to being seen by health care provider (principal)

== ENCOUNTER 2021-06-27 21:20 | Emergency (ER) | payer MEDICAID, SELFPAY ==
[2021-06-27 21:21] VITALS: BP 160/90; PULSE 89; RESP 18; TEMP 36.4; O2SAT 96; BMI 53.7
[2021-06-27 22:26] LABS: Absolute Lymphocyte Count 3.91 X10^3/uL (0.83-4.51); Absolute Neutrophil Count 9.7 X10^3/uL (2.0-7.7); Basophil# 0.04 X10^3/uL; Basophil% 0.3 % (0-1); Eosinophil# 0.11 X10^3/uL; Eosinophils% 0.7 % (0-5); Hematocrit 45.7 % (37-47); Hemoglobin 15.1 g/dL (12.0-15.0); Lymphocyte # 3.91 X10^3/ul (0.83-4.51); Lymphocyte % 26.2 % (19-41); Mean Corpuscular Hgb 27.9 pg (27.0-32.0); Mean Corpuscular Volume 84.3 fL (81-99); Mean Platelet Vol. 9.7 fl (6.2-12.0); Monocyte# 1.15 X10^3/uL; Monocyte% 7.7 % (0-10); NRBC Flagged by Analyzer 0 % (0-5); Neutrophil # 9.68 X10^3/uL (2.7-7.7); Neutrophil % 64.8 % (47-70); Platelet Count 453 K/mm3 (150-450); RBC Distribution Width CV 12.7 % (11.6-14.6); Red Blood Count 5.42 M/mm3 (4.2-5.4); White Blood Count 14.9 K/mm3 (4.4-11.0)
[2021-06-27 22:38] LABS: Anion Gap 5 (5-15); BUN 5 mg/dL (7-18); BUN/Creat Ratio 8.1 RATIO (10-20); Calcium,Total 9.4 mg/dL (8.5-10.1); Chloride 106 mmol/L (98-107); Creatinine, Serum 0.62 mg/dL (0.55-1.02); EST Glomerular Filtration Rate 127 mL/min (>60); Est Glom Filt Rate - Afr Amer 153 mL/min (>60); Estimated Creatinine Clearance 126.99 ml/min; Glucose 122 mg/dL (74-106); Potassium 3.5 mmol/L (3.5-5.1); Sodium Level 138 mmol/L (136-145)
[2021-06-27 23:25] LABS: Internal QC Validated? YES +Cl - CLEAR BKGD; Pregnancy, Serum, hCG Quali. NEGATIVE Negative
--- NOTE | 2021-06-27 23:37 | EDS_ITS ---
HPI History of Present Illness Chief Complaint: Nausea/Vomiting Informant: patient Narrative Narrative: 2-week history of nausea and vomiting. Was seen initially 2 weeks ago given Zofran. Follow-up with her PCP office 3 days later was told to monitor. She went to [facility] a week ago labs urine was told she had a UTI. She had no dysuria. To start her Keflex 2 days ago. Follow-up with your PCP again then her OB again her PCP 3 days ago. Given a shot of Phenergan. Since 3 days now only 2 emesis. No diarrhea. No urinary symptoms. She is tolerating oral intake. Multiple test has been negative. States feels fatigued and weaker over the weekend. No falls. Had a lightheaded symptoms. No history endoscopies in the past. Here due to frustration multiple evaluations as an outpatient and through emergency departments x2. [facility] Medical History Anxiety Bipolar 1 disorder Depression PCOS (polycystic ovarian syndrome) Home Medications olanzapine [Zyprexa] 10 mg PO DAILY 02/28/19 [History Last Taken 02/28/19] PNV cmb#95-ferrous fumarate-FA 1 ea PO DAILY 10/27/19 [History Last Taken Unknown] ondansetron 8 mg PO Q8H PRN PRN #20 tab 07/05/20 [Rx Last Taken Unknown] hydroxyzine pamoate 50 mg PO BID PRN 07/20/20 [History Last Taken Unknown] biotin 1 mg PO DAILY 07/29/20 [History Last Taken Unknown] lamotrigine 150 mg PO BID 12/31/20 [History Last Taken Unknown] benztropine 0.5 mg PO DAILY 05/13/21 [History Last Taken Unknown] cyclobenzaprine 10 mg PO TID PRN #15 tab 05/13/21 [Rx Last Taken Unknown] liraglutide [Victoza 2-Robert] 1 mg SUBCUT DAILY 05/13/21 [History Last Taken Unknown] naproxen [Naprosyn] 500 mg PO BID PRN #20 tab 05/13/21 [Rx Last Taken Unknown] dicyclomine 20 mg PO TID PRN #7 tab 06/14/21 [Rx Last Taken Unknown] ondansetron 4 mg PO Q8H PRN #10 tab 06/14/21 [Rx Last Taken Unknown] Allergy/AdvReac Type Severity Reaction Status Date / Time No Known Allergies Allergy Verified 06/27/21 21:21 Social History Smoking Status: Current every day smoker tobacco type: e-cigarettes and smokeless tobacco ROS ROS ED Constitutional Constitutional ED: Denies chills, fever(s) or sweats Eyes Eyes: Denies change in vision ENT ENT ED: Denies dysphagia or sore throat Cardiovascular Cardiovascular: Denies chest pain, leg edema, palpitations or racing heartbeat Respiratory/Chest Respiratory/Chest: Denies cough, dyspnea or dyspnea on exertion Gastrointestinal Gastrointestinal: Denies abdominal pain, diarrhea, nausea or vomiting Genitourinary Genitourinary ED: Denies dysuria, hematuria or urinary frequency Musculoskeletal Musculoskeletal: Denies back pain, extremity pain or neck pain Integumentary Denies rash or wounds Neurologic Neurologic: Reports weakness; Denies headache(s) or paresthesias EXAM Physical Exam Const Vital Signs: 06/27/21 21:21 06/28/21 00:09 Temperature 97.6 F L Temperature Source Temporal Pulse Rate 89 80 Respiratory Rate 18 18 Blood Pressure 160/90 H 156/88 H Blood Pressure Mean 113 110 Pulse Ox 96 98 Oxygen Delivery Method Room Air Room Air Positive well nourished and well developed General Appearance ED: well developed and NAD HEENT Reports moist mucous membranes normocephalic and atraumatic Eyes PERRL, EOMs intact bilaterally and conjunctivae normal General Eye ED: Yes normal appearance of both eyes Neck no lymphadenopathy and supple General: Negative for tenderness Chest Wall Chest: Negative for tenderness Resp normal respiratory effort and normal air movement Effort and Inspection: symmetric chest movement; Negative for respiratory distress Cardio regular rate, regular rhythm and no murmurs Peripheral Pulses: pulses 2+ throughout GI normal to inspection, nondistended, normoactive bowel sounds and non-tender Palpation: Negative for guarding or rebound tenderness present Back/Spine no CVA tenderness and no thoracic nor lumbar tenderness Extremity normal to inspection General Extremety ED: Negative for edema or tenderness General Extremity: Negative for edema Neuro oriented x3 and no sensory deficits noted Sensorium / Orientation: awake and alert Skin no rashes or lesions noted and no wounds MDM MDM MDM Narrative Medical decision making narrative: Patient report lightheaded symptoms EKG normal. She states emesis has improved with only 2 in the last 3 days. No bloody stools or emesis. She is tolerating oral intake. With her reported weakness recheck labs electrolytes all normal. hCG negative. White count 14.9 likely reactive. Urine noted leukocytes and bacteria culture sent. She denies having symptoms and she is currently on Keflex started over the past couple days. Discussed continuing that for now until culture results. Denies any cough symptoms. No abdominal or back pain. She is given follow-up with surgery as an outpatient for potential further outpatient evaluation without any endoscopy history. All questions answered. She reports she has multiple antiemetics at home. Patient is being discharged under pandemic conditions under declared global, national and state disaster activation, with limited medical resources. Patient and community understands this. Results discussed in layman's terms to the patient satisfaction. All questions answered in layman's terms. Patient understands importance of follow-up care as directed. Patient has been instructed to return to the ED immediately if new symptoms, problems, or questions occur. We mutually agree with the plan of disposition. The patient understand that they may call or return with any questions or concerns at any time. Lab Data Attestation: I reviewed the patient's lab results. Labs: Laboratory Results - last 24 hr 06/27/21 06/27/21 06/27/21 22:15 22:15 22:15 WBC 14.9 H RBC 5.42 H Hgb 15.1 H Hct 45.7 MCV 84.3 MCH 27.9 MCHC 33.0 RDW Std Deviation 39.0 RDW Coeff of Mariel 12.7 Plt Count 453 H MPV 9.7 Immature Gran % (Auto) 0.300 Neut % (Auto) 64.8 Lymph % (Auto) 26.2 [place] % (Auto) 7.7 Eos % (Auto) 0.7 Baso % (Auto) 0.3 Absolute Neuts (auto) 9.7 H Absolute Lymphs (auto) 3.91 Nucleated RBC % 0 Sodium 138 Potassium 3.5 Chloride 106 Carbon Dioxide 27.0 Anion Gap 5 BUN 5 L Creatinine 0.62 Estim Creat Clear Calc 126.99 Est GFR (MDRD) Af Amer 153 Est GFR (MDRD) Non-Af 127 BUN/Creatinine Ratio 8.1 L Glucose 122 H Calcium 9.4 Serum , Qual NEGATIVE Urine Color Urine Clarity Urine pH Ur Specific [place] Urine Protein Urine Glucose (UA) Urine Ketones Urine Occult Blood Urine Nitrite Urine Bilirubin Urine Urobilinogen Ur Leukocyte Esterase Urine RBC Urine WBC Ur Squamous Epith Cells Urine Bacteria Urine Mucus 06/27/21 23:56 WBC RBC Hgb Hct MCV MCH MCHC RDW Std Deviation RDW Coeff of Mariel Plt Count MPV Immature Gran % (Auto) Neut % (Auto) Lymph % (Auto) [place] % (Auto) Eos % (Auto) Baso % (Auto) Absolute Neuts (auto) Absolute Lymphs (auto) Nucleated RBC % Sodium Potassium Chloride Carbon Dioxide Anion Gap BUN Creatinine Estim Creat Clear Calc Est GFR (MDRD) Af Amer Est GFR (MDRD) Non-Af BUN/Creatinine Ratio Glucose Calcium Serum , Qual Urine Color Yellow Urine Clarity Clear Urine pH 5.0 Ur Specific [place] 1.015 Urine Protein Negative Urine Glucose (UA) Normal Urine Ketones Negative Urine Occult Blood 10 H Urine Nitrite Negative Urine Bilirubin Negative Urine Urobilinogen Normal Ur Leukocyte Esterase 100 H Urine RBC 0 SEEN Urine WBC 0-5 SEEN Ur Squamous Epith Cells 0-5 SEEN Urine Bacteria 1+ Urine Mucus 0 SEEN EKG Initial EKG: Attestation: I personally reviewed and interpreted this EKG as follows: Comments: Sinus rate of 82, no ST changes isolated T wave version leads III. Nonspecific. QTc 439. Discharge Plan Triage Chief Complaint: Nausea/Vomiting ED Provider: Rafael Kwon Dx/Rx/DC Orders Clinical Impression: Weakness, Nausea & vomiting Instructions: ED Vomiting (Adult), ED Weakness (Uncertain Cause) Prescriptions: No Action olanzapine [Zyprexa] 7.5 MG tablet 10 mg PO DAILY RF: 0 PNV cmb#95-ferrous fumarate-FA 1 EACH tablet 1 ea PO DAILY RF: 0 ondansetron 4 MG tablet 8 mg PO Q8H PRN PRN (Reason: Nausea) Qty: 20 RF: 0 hydroxyzine pamoate 50 MG capsule 50 mg PO BID PRN (Reason: Anxiety) RF: 0 biotin 1 MG tablet 1 mg PO DAILY RF: 0 lamotrigine 150 MG tablet 150 mg PO BID RF: 0 benztropine 0.5 mg tablet 0.5 mg PO DAILY RF: 0 Victoza 2-Robert 0.6 mg/0.1 mL (18 mg/3 mL) pen injector 1 mg SUBCUT DAILY RF: 0 naproxen [Naprosyn] 500 mg tablet 500 mg PO BID PRN (Reason: pain) Qty: 20 RF: 0 cyclobenzaprine 10 mg tablet 10 mg PO TID PRN (Reason: muscle spasm) Qty: 15 RF: 0 ondansetron 4 mg tablet,disintegrating 4 mg PO Q8H PRN (Reason: nausea and vomiting) Qty: 10 RF: 0 dicyclomine 20 mg tablet 20 mg PO TID PRN (Reason: cramps) Qty: 7 RF: 0 Primary Care Provider: Samreen Eid Referrals: Samreen Eid DO [Primary Care Provider] - Karson Caba MD [STAFF PHYSICIAN] - 1 Week Disposition Disposition: Home, Self Care Discharge Date/Time: 06/28/21 02:10
--- NOTE | 2021-06-27 23:39 | EKG12_ITS ---
Test Reason : N/V Blood Pressure : / mmHG Vent. Rate : 082 BPM Atrial Rate : 082 BPM P-R Int : 158 ms QRS Dur : 078 ms QT Int : 376 ms P-R-T Axes : 043 -01 001 degrees QTc Int : 439 ms Normal sinus rhythm Normal ECG Confirmed by JENNIFER PARKS, ENOCH ([id number]), magazine editor PASHA PASTOR ([id number]) on 06/29/2021 9:13:26 AM Referred By: SALEEM Confirmed By:ENOCH RODRIGUEZ MD
[2021-06-28] LABS: Mucous, Urine 0 SEEN /hpf (<or=2+); Red Blood Cells-Urine 0 SEEN /hpf (0-5)
[2021-06-28 00:01] LABS: Color, Urine Yellow (Yellow); Glucose, Dipstick Normal (Normal); Ketone-Dipstick Negative (Negative); Leukocyte Esterase-Dipstick 100 /ul (Negative); Nitrite-Dipstick Negative (Negative); Occult Blood-Urine 10 /ul (Negative); Protein-Dipstick Negative (Negative); Specific Gravity, Urine 1.015 (1.002-1.030); Urine Bilirubin Dipstick Negative (Negative); Urine Clarity Clear (Clear); Urine Urobilinogen Normal (Normal)
[2021-06-28 00:09] VITALS: BP 156/88; PULSE 80; RESP 18; O2SAT 98
[2021-06-28] MEDS: 0.9% Normal Saline 1,000 ML 1000 ML IV (00:09)
[2021-06-28 00:19] LABS: Bacteria 1+ /hpf (None Seen); Squamous Epithelial Cells - UA 0-5 SEEN /hpf (5-10); White Blood Cells 0-5 SEEN /hpf (0-5)
== END 2021-06-28 02:10 | disposition home or self-care (01) ==
PROVIDERS: Emergency Provider Emergency Medicine; PCP Family Medicine
DX: R11.2 Nausea with vomiting, unspecified (principal); R53.1 Weakness; E28.2 Polycystic ovarian syndrome; F31.9 Bipolar disorder, unspecified; F41.9 Anxiety disorder, unspecified; Z87.440 Personal history of urinary (tract) infections; Z79.899 Other long term (current) drug therapy; F17.290 Nicotine dependence, other tobacco product, uncomplicated
CPT/HCPCS: 80048; 81001; 84703; 85025; 93005; 96360; 99283; J7030; A4216

== ENCOUNTER 2021-07-06 08:26 | Day surgery (SDC) | payer MEDICAID, SELFPAY ==
[2021-07-06] MEDS: Lactated Ringers 1,000 ML 100 ML IV (08:35)
[2021-07-06 08:54] LABS: Internal QC Validated? YES +Cl - CLEAR BKGD; Pregnancy, Urine Negative Negative
[2021-07-06 09:00] VITALS: BP 143/81; PULSE 89; RESP 16; TEMP 36.2; O2SAT 95; BMI 57.9
--- NOTE | 2021-07-06 09:30 | IMM_PTH ---
PATIENT: MARGARITA DE LOC: EN U#:[id number] AGE/SX: 25/F ROOM: RE07/06/[address]: Dr. Karson Caba MD : 1995 BED: DIS: 07/06/2021 SPEC #: [id number] RECD: 07/06/21 13:47 STATUS: LETICIA REQ #: [id number] LETTY: 07/06/21 09:[address]: Karson Caba DEPT: IMMUNOHISTOCHEMISTRY RECD BY: Promise Colunga ENTERED: 07/06/21 13:47 SP TYPE: IMMUNO OTHR DR: Dr. Samreen Eid DO Tissues: A - Stomach, NOS Procedures: H Pylori (initial) PHYSICIAN & INSTITUTION [place] [address] SPECIMEN INFORMATION: Tissue Source: A ? Antrum biopsy Clinical Info: Vomiting Specimen Number: [id number] CPT code: 67977 METHODOLOGY: Deparaffinized sections of prefer/formalin-fixed tissue or PAP/DQ stained slides are incubated with monoclonal/polyclonal antibodies/oligonucleotide probes. Localization is made via biotin free immunoperoxidase method. Appropriate controls are performed and reacted as expected. Results on target cell population are indicated in the following table: RESULTS: ANTIBODY / CLONE RESULT Block A H Pylori (polyclonal) negative These tests were developed and their performance characteristics determined by [facility]. They may not have been cleared or approved by the U.S. Food and Drug Administration. The FDA has determined that such clearance or approval is not necessary. INTERPRETATION: A. Antrum biopsy: Negative for Helicobacter pylori organisms. ROBLES:iona 07/07/2021
--- NOTE | 2021-07-06 09:30 | EGD_PTH ---
PATIENT: MARGARITA DE LOC: EN U#:[id number] AGE/SX: 25/F ROOM: RE07/06/[address]: Dr. Karson Caba MD : 1995 BED: DIS: 07/06/2021 SPEC #: [id number] RECD: 07/06/21 11:45 STATUS: LETICIA SHAKA #: [id number] LETTY: 07/06/21 09:[address]: Karson Caba DEPT: SURGICAL PATHOLOGY RECD BY: Rachell Watts ENTERED: 07/06/21 13:18 SP TYPE: EGD BIOPSY SHAMAR DR: Dr. Samreen Eid DO Tissues: A - Gastric mucous membrane B - Stomach, NOS Procedures: Special Stain Group II Surgery Specimen Level IV Alcian Blue/PAS (control) HEADER OPERATION: EGD ([facility]) PRE-OP DIAGNOSIS: Vomiting TISSUE SUBMITTED: A ? Antrum biopsy for H. pylori and path, B ? GE junction biopsy MICROSCOPIC DIAGNOSIS A. Gastric antrum, biopsy: Chronic gastritis. See comment. B. Gastroesophageal junction, biopsy: Changes of reflux. Junctional mucosa with chronic inflammation. No evidence of goblet cell metaplasia. See comment. AM:iona 07/07/2021 COMMENT A. The results of immunohistochemistry for Helicobacter pylori will be reported separately ([id number]). B. Alcian blue/PAS stain with matched control supports the above diagnosis. MICROSCOPIC DESCRIPTION Slides are reviewed. GROSS DESCRIPTION A - Received in fixative is one container labeled with the patient's name and designated antrum biopsy. The specimen consists of one irregular fragment of light vieira soft tissue that measures 0.5 x 0.3 x 0.1 cm. The specimen is totally submitted in one cassette. B - Received in fixative is one container labeled with the patient's name and designated GE junction biopsy. The specimen consists of two irregular fragments of light vieira soft tissue that in aggregate measure 0.6 x 0.2 x 0.1 cm. The specimen is totally submitted in one cassette. / AM:iona 07/06/21 TC:3 CPT: 60185 x2, 79339
[2021-07-06 10:31] VITALS: BP 105/75; BP 143/81; PULSE 78; RESP 16; TEMP 36.4; O2SAT 99
[2021-07-06 10:35] VITALS: BP 102/73; BP 143/81; PULSE 70; RESP 16; O2SAT 100
[2021-07-06 10:40] VITALS: BP 107/71; BP 143/81; PULSE 67; RESP 16; O2SAT 98
--- NOTE | 2021-07-06 10:43 | OP.EGD_ITS ---
Patient Name: Ludivina Salas Procedure Date: 07/06/2021 10:04 AM Date of : 1995 Age: 25 Procedure: Upper GI endoscopy Indications: Persistent vomiting, Persistent vomiting of unknown cause Providers: Karson Caba MD Medicines: Monitored Anesthesia Care Patient Profile: Refer to note in patient chart for documentation of history and physical. Complications: No immediate complications. Estimated blood loss: Minimal. Procedure: Pre-Anesthesia Assessment: - Prior to the procedure, a History and Physical was performed, and patient medications, allergies and sensitivities were reviewed. The patient's tolerance of previous anesthesia was reviewed. - The heart rate, respiratory rate, oxygen saturations, blood pressure, adequacy of pulmonary ventilation, and response to care were monitored throughout the procedure. - The anesthesia plan was to use moderate sedation/analgesia (conscious sedation). After obtaining informed consent, the endoscope was passed under direct vision. Throughout the procedure, the patient's blood pressure, pulse, and oxygen saturations were monitored continuously. The gastroscope was introduced through the mouth, and advanced to the second part of duodenum. The upper GI endoscopy was accomplished without difficulty. The patient tolerated the procedure fairly well. Scope In: 10:17:54 AM Scope Out: 10:26:41 AM Total Procedure Duration Time 0 hours 8 minutes 47 seconds Findings: The in the duodenum was normal. The gastric antrum was normal. Biopsies were taken with a cold forceps for Helicobacter pylori testing. Estimated blood loss was minimal. The examined esophagus was normal. Impression: - Normal. - Normal antrum. Biopsied. - Normal esophagus. Recommendation: - Discharge patient to home (via wheelchair). - Resume previous diet today. - Await pathology results. - Continue present medications. Procedure Code(s): --- Professional --- 87504, Esophagogastroduodenoscopy, flexible, transoral; with biopsy, single or multiple Diagnosis Code(s): --- Professional --- R11.10, Vomiting, unspecified CPT copyright 2017 [employer]. All rights reserved. The codes documented in this report are preliminary and upon functional consultant review may be revised to meet current compliance requirements. Karson Caba MD 07/06/2021 10:42:56 AM This report has been signed electronically. Number of Addenda: 0 Note Initiated On: 07/06/2021 10:04 AM
--- NOTE | 2021-07-06 10:44 | OP.CCLET_ITS ---
07/06/2021 Samreen Eid [address] [place] [address] Re : Upper GI endoscopy procedure for Ludivina Salas Dear Dr. Eid This procedure was performed on June. My impressions and recommendations are as follows: Impressions : - Normal. - Normal antrum. Biopsied. - Normal esophagus. Recommendations : - Discharge patient to home (via wheelchair). - Resume previous diet today. - Await pathology results. - Continue present medications. My findings are described in the full procedure note, which is enclosed. If I can be of further assistance, please feel free to contact me at Doctor phone number(s): , Work: . Sincerely, Karson Caba MD 07/06/2021 10:42:56 AM This report has been signed electronically.
[2021-07-06 10:45] VITALS: BP 106/67; BP 143/81; PULSE 70; RESP 16; TEMP 36.2; O2SAT 98
[2021-07-06 11:15] VITALS: BP 143/81
== END 2021-07-06 11:25 ==
LOC: EN 08:28 → AC 08:28
PROVIDERS: Anesthesiology; PCP Family Medicine; Referring Provider Family Medicine; Visit Provider Surgery
PROC: 0DJ08ZZ Inspection of Upper Intestinal Tract, Via Natural or Artificial Opening Endoscopic (ICD-10-PCS; CPT 43235; principal; 2021-07-06 09:25)
DX: K29.50 Unspecified chronic gastritis without bleeding (principal); K21.9 Gastro-esophageal reflux disease without esophagitis; F31.9 Bipolar disorder, unspecified; F41.9 Anxiety disorder, unspecified; E28.2 Polycystic ovarian syndrome; Z79.899 Other long term (current) drug therapy
CPT/HCPCS: 43239; 81025; 88305; 88313; 88342; J7120; J2405

== ENCOUNTER → 2021-09-25 07:00 | Outpatient (CLI) | payer MEDICAID, SELFPAY ==
--- NOTE | 2021-09-25 07:01 | MRI_ITS ---
STUDY: MRI BRAIN WITH AND WITHOUT CONTRAST REASON FOR EXAM: Female, 25 years old. migraine TECHNIQUE: Standardized multiplanar fat and water weighted pulse sequences were obtained. IV 30 cc dotarem was administered for the contrast portion of the examination. COMPARISON: CT of the head dated 08/02/2015 FINDINGS: Normal size of the ventricles and extra-axial spaces for the patient''s age. Normal white matter tracts of the supratentorial brain. Normal bilateral basal ganglia. Normal thalami. There is no extra-axial fluid accumulation. There is no enhancing intra-axial or extra-axial abnormality. Normal sella turcica, pituitary gland, infundibular stalk, optic chiasm and hypothalamus. Normal tectal plate and pineal gland. Normal midbrain, linda and medulla. Normal cerebellum. Normal basal cisterns. MRI/Brain W/WO Contrast IMPRESSION: Unremarkable unenhanced and enhanced MRI of the brain. Electronically Signed: Duglas España MD at 14:40 EST Tel , Service support ,
== END ==
PROVIDERS: PCP Family Medicine; Referring Provider Psychiatry & Neurology Neurology; Visit Provider Psychiatry & Neurology Neurology
DX: G43.909 Migraine, unspecified, not intractable, without status migrainosus (principal)
CPT/HCPCS: 70553; A9575

== ENCOUNTER 2021-09-27 00:24 | Emergency (ER) | payer MEDICAID, SELFPAY ==
[2021-09-27 00:25] VITALS: BP 132/65; PULSE 73; RESP 16; TEMP 36.3; O2SAT 100; BMI 60.1
--- NOTE | 2021-09-27 00:54 | RAD_ITS ---
STUDY: X-RAY - PELVIS AND RIGHT HIP REASON FOR EXAM: Female, 25 years old. pain TECHNIQUE: 3 views of the pelvis and hip. COMPARISON: None. FINDINGS: There is a non-specific bowel gas pattern. Normal visualized soft tissue structures. Normal bilateral iliac wings, sacroiliac joints and visualized sacrum. Normal bilateral superior and inferior pubic rami. Normal pubic symphysis. Normal bilateral ischial tuberosities. Normal visualized femoral head. Normal acetabulum. Normal hip joint. RAD/HIP, UNI W/ Pelvis 2-3 Views IMPRESSION: Normal x-ray examination of the pelvis and hip. Electronically Signed: Genet Meraz MD at 2:00 EST Tel , Service support ,
--- NOTE | 2021-09-27 02:32 | EDS_ITS ---
HPI History of Present Illness Chief Complaint: Lower Extremity Injury Narrative Narrative: Patient is a 25-year-old female who states that she was working out her legs 2 to 3 days ago. She states after workout she noticed that there was standard post workout aches and pains but then those resolved and she now had pain in her right lateral hip. She states that the pain resolves at rest but will worsen with any type of motion. She denies any direct trauma and she denies any overlying soft tissue changes. She also denies any previous history of DVT/PE. She states that with the pain it is difficult for her to ambulate and therefore she comes in for evaluation [facility] Medical History (Updated 09/27/21 @ 02:[address] Inocencio Rosales, DO) Alcohol use Anxiety Bipolar 1 disorder Chronic neck and back pain Depression Diarrhea Difficulty balancing when standing Encounter for screening for COVID-19 Gastric reflux Hemorrhoids History of PCOS Incontinence Injury of head and neck Leg cramps Limb weakness Marijuana use PCOS (polycystic ovarian syndrome) Severe headache Shortness of breath on exertion Shoulder pain Smoker Wears glasses Home Medications PNV cmb#95-ferrous fumarate-FA 1 ea PO DAILY 10/27/19 [History Last Taken Unknown] hydroxyzine pamoate 50 mg PO BID PRN 07/20/20 [History Last Taken Unknown] biotin 1 mg PO DAILY 07/29/20 [History Last Taken Unknown] liraglutide [Victoza 2-Robert] 1 mg SUBCUT DAILY 05/13/21 [History Last Taken Unknown] potassium 99 mg PO DAILY 07/04/21 [History Last Taken Unknown] lamotrigine 150 mg tablet 100 mg PO DAILY tab 09/12/21 [History Last Taken Unknown] levonorgestrel 20 mcg/24 hours (7 yrs) 52 mg intrauterine device 1 insert INTRAUTERINE ONCE 09/12/21 [History Last Taken Unknown] olanzapine 7.5 mg tablet 15 mg PO DAILY tab 09/12/21 [History Last Taken Unknown] ondansetron 4 mg disintegrating tablet 4 mg PO Q8H PRN #90 tab 09/12/21 [Rx Last Taken Unknown] sumatriptan succinate 50 mg tablet 50 mg PO .COMPLEX #9 tab 09/12/21 [Rx Last Taken Unknown] topiramate 25 mg tablet 25 mg PO DAILY 09/12/21 [History Last Taken Unknown] topiramate 50 mg tablet 50 mg PO BID #60 tab 09/12/21 [Rx Last Taken Unknown] magnesium 30 mg tablet 30 mg PO DAILY 09/20/21 [History Last Taken Unknown] melatonin 3 mg capsule 3 mg PO HS PRN 09/20/21 [History Last Taken Unknown] hydrocodone-acetaminophen 1 tab PO Q6H PRN 3 Days #12 tab 09/27/21 [Rx Last Taken Unknown] prednisone 40 mg PO DAILY #10 tab 09/27/21 [Rx Last Taken Unknown] Allergy/AdvReac Type Severity Reaction Status Date / Time No Known Allergies Allergy Verified 09/20/21 12:29 Family History (Updated 09/20/21 @ 12:35 by Rosey Cannon) Brother Asthma Sister Asthma Mother Thyroid disorder Other Diabetes Heart disease Hx of blood clots Surgical History H/O sinus surgery Hx of cholecystectomy Hx of wisdom tooth extraction S/P laparoscopic cholecystectomy S/P sinus surgery S/P tonsillectomy Social History Smoking Status: Current every day smoker tobacco type: e-cigarettes and smokeless tobacco alcohol intake: current alcohol intake frequency: a few times a month substance use type: marijuana ROS ROS ED Constitutional Constitutional ED: Denies chills or fever(s) Cardiovascular Cardiovascular: Denies chest pain Respiratory/Chest Respiratory/Chest: Denies cough or dyspnea Gastrointestinal Gastrointestinal: Denies abdominal pain, diarrhea, nausea or vomiting Genitourinary Genitourinary ED: Denies dysuria Musculoskeletal Musculoskeletal: Reports myalgias and other Details: Positive right hip pain Integumentary Denies abscess, Abrasions or rash Neurologic Neurologic: Denies headache(s) EXAM Physical Exam Const Vital Signs: 09/27/21 00:25 Temperature 97.4 F L Temperature Source Oral Pulse Rate 73 Respiratory Rate 16 Blood Pressure 132/65 H Blood Pressure Mean 87 Pulse Ox 100 Oxygen Delivery Method Room Air Positive well nourished, well developed and obese General Appearance ED: well developed Nutritional Appearance: obese Eyes PERRL and EOMs intact bilaterally Neck supple Resp normal respiratory effort and clear to auscultation bilaterally Cardio regular rate and regular rhythm Extremity Extremity Narrative: Pelvis is stable there is no shortening or external rotation of either lower extremity. Patient has mild pain with palpation over top the right greater trochanter and this pain increases with hip flexion as well as internal and external rotation. No asymmetric edema no pitting edema negative Homans' sign bilaterally. Neuro oriented x3 and CN's II-XII intact bilaterally Sensorium / Orientation: alert Motor Exam: strength 5/5 throughout Psych mental status grossly normal Skin no rashes or lesions noted MDM MDM MDM Narrative Medical decision making narrative: Patient presented to the ER with report of of right hip pain without obvious trauma. She had no signs of DVT and therefore I felt only need for a x-ray at this time. X-ray revealed no acute bony pathology. Therefore I feel patient most likely has right greater trochanter bursitis from her recent working out session and this can be treated symptomatically and patient discharged home. Radiography Diagnostic Testing: Clinical Impression(s) from Imaging Studies Hip/Pelvis X-Ray 09/27/21 00:54 IMPRESSION: Normal x-ray examination of the pelvis and hip. Electronically Signed: Genet Meraz MD at 2:00 EST Tel , Service support , Discharge Plan Triage Chief Complaint: Lower Extremity Injury ED Provider: Inocencio Rosales Dx/Rx/DC Orders Clinical Impression: Greater trochanteric bursitis of right hip Instructions: ED Bursitis Prescriptions: New prednisone 20 mg tablet 40 mg PO DAILY Qty: 10 RF: 0 hydrocodone-acetaminophen 5-325 mg tablet 1 tab PO Q6H PRN (Reason: pain) 3 Days Qty: 12 RF: 0 No Action Mirena 20 mcg/24 hours (7 yrs) 52 mg intrauterine device 1 insert intrauterine ONCE RF: 0 topiramate [Topamax] 25 mg tablet 25 mg PO DAILY RF: 0 ondansetron 4 mg tablet,disintegrating 4 mg PO Q8H PRN (Reason: nausea and vomiting) Qty: 90 RF: 2 topiramate 50 mg tablet 50 mg PO BID Qty: 60 RF: 2 sumatriptan succinate 50 mg tablet 50 mg PO .COMPLEX Qty: 9 RF: 2 magnesium 30 mg tablet 30 mg PO DAILY RF: 0 melatonin 3 mg capsule 3 mg PO HS PRNRF: 0 olanzapine [Zyprexa] 7.5 mg tablet 15 mg PO DAILY RF: 0 PNV cmb#95-ferrous fumarate-FA 1 EACH tablet 1 ea PO DAILY RF: 0 hydroxyzine pamoate 50 MG capsule 50 mg PO BID PRN (Reason: Anxiety) RF: 0 biotin 1 MG tablet 1 mg PO DAILY RF: 0 lamotrigine [Lamictal] 150 mg tablet 100 mg PO DAILY RF: 0 Victoza 2-Robert 0.6 mg/0.1 mL (18 mg/3 mL) pen injector 1 mg SUBCUT DAILY RF: 0 potassium 99 mg Tablet 99 mg PO DAILY RF: 0 Stand Alone Forms: ED Work / School Excuse Primary Care Provider: Samreen Eid Referrals: Samreen Eid DO [Primary Care Provider] - Disposition Disposition: Home, Self Care Discharge Date/Time: 09/27/21 02:37
== END 2021-09-27 02:37 | disposition home or self-care (01) ==
PROVIDERS: Emergency Provider Emergency Medicine; PCP Family Medicine
DX: M70.61 Trochanteric bursitis, right hip (principal); Y93.9 Activity, unspecified; E66.9 Obesity, unspecified; Z68.44 Body mass index [BMI] 60.0-69.9, adult; E28.2 Polycystic ovarian syndrome; F31.9 Bipolar disorder, unspecified; F41.9 Anxiety disorder, unspecified; K21.9 Gastro-esophageal reflux disease without esophagitis; G89.29 Other chronic pain; Z79.899 Other long term (current) drug therapy; F12.90 Cannabis use, unspecified, uncomplicated; F17.290 Nicotine dependence, other tobacco product, uncomplicated
CPT/HCPCS: 73502; 99282

== ENCOUNTER → 2021-10-17 07:57 | Outpatient (CLI) | payer MEDICAID, SELFPAY | PROVIDERS: PCP Family Medicine; Visit Provider Psychiatry & Neurology Neurology | DX: G47.10 Hypersomnia, unspecified (principal) | CPT/HCPCS: 95810 ==

== ENCOUNTER → 2022-10-02 | Outpatient (CLI) | payer MEDICAID, SELFPAY ==
[2022-10-02 12:19] LABS: Absolute Neutrophil Count 3.6 X10^3/uL (2.0-7.7); Basophil# 0.05 X10^3/uL; Basophil% 0.6 % (0-1); Eosinophils% 3.9 % (0-5); Hematocrit 47.9 % (37-47); Hemoglobin 15.5 g/dL (12.0-15.0); Lymphocyte % 38.9 % (19-41); Mean Corp Hgb Conc 32.4 g/dL (32-36); Mean Corpuscular Hgb 28.5 pg (27.0-32.0); Mean Corpuscular Volume 88.2 fL (81-99); Mean Platelet Vol. 10.4 fl (6.2-12.0); Monocyte# 0.77 X10^3/uL; NRBC Flagged by Analyzer 0 % (0-5); Neutrophil # 3.58 X10^3/uL (2.7-7.7); Neutrophil % 46.3 % (47-70); Platelet Count 399 K/mm3 (150-450); RBC Distribution Width CV 12.9 % (11.6-14.6); RBC Distribution Width SD 41.7 fl (35.1-43.9); Red Blood Count 5.43 M/mm3 (4.2-5.4); White Blood Count 7.7 K/mm3 (4.4-11.0)
[2022-10-02 12:57] LABS: Vitamin B12 481 pg/mL (211-911); Vitamin D,25 Hydroxy 15.5 ng/mL
[2022-10-02 14:33] LABS: Hemoglobin A1c 5.4 % (3.8-5.6)
[2022-10-02 14:35] LABS: ALB/GLOB Ratio 0.9 RATIO (0.9-2.4); AST(SGOT) 25 U/L (15-37); Alanine Aminotransfer ALT/SGPT 49 U/L (13-56); Albumin, Serum 3.7 g/dL (3.2-5.0); Alkaline Phosphatase 69 U/L (45-117); Anion Gap 9 (5-15); BUN 5 mg/dL (7-18); BUN/Creat Ratio 7.7 RATIO (10-20); Calcium,Total 8.9 mg/dL (8.5-10.1); Chloride 103 mmol/L (98-107); Cholesterol 196 mg/dL (200); Creatinine, Serum 0.65 mg/dL (0.55-1.02); EST Glomerular Filtration Rate 119 mL/min (>60); Est Glom Filt Rate - Afr Amer 144 mL/min (>60); Ferritin 134 ng/mL (8-252); Free T3 3.2 pg/mL (2.18-3.98); Globulin 3.9 g/dL (2.2-4.2); Glucose 89 mg/dL (74-106); High Density Lipoprotein 31 mg/dL; Iron 85 ug/dL (50-170); Potassium 3.5 mmol/L (3.5-5.1); Protein, Total 7.6 g/dL (6.4-8.2); Sodium Level 137 mmol/L (136-145); T4 Free Direct 1.19 ng/dL (0.76-1.46); Thyroid Stim Hormone (TSH) 0.73 uIU/mL (0.358-3.74); Triglycerides 139 mg/dL; Very Low Density Lipoprotein 28 mg/dL (5-40)
[2022-10-09 11:08] LABS: Testosterone, Free 0.56 ng/dL (0.10-0.85); Testosterone, Total 37 ng/dL (13-71)
== END | disposition home or self-care (01) ==
LOC: BFHLAB 08:33
PROVIDERS: PCP Family Medicine; Visit Provider Family Medicine
DX: E28.2 Polycystic ovarian syndrome (principal); E11.9 Type 2 diabetes mellitus without complications; R53.83 Other fatigue; Z51.81 Encounter for therapeutic drug level monitoring; N93.8 Other specified abnormal uterine and vaginal bleeding
CPT/HCPCS: 36415; 80053; 80061; 82306; 82607; 82627; 82728; 83036; 83540; 84402; 84403; 84439; 84443; 84481; 85025; 82626